=== PATIENT | male | born 1965 | race Caucasian/White ===

== ENCOUNTER 2025-06-23 14:19 | Inpatient (IN) ==
--- NOTE | 2025-06-23 14:24 | Emergency Department Note ---
Impression & Plan Septic shock, Hypokalemia, Chest pain, Cellulitis of right lower extremity, Hypomagnesemia, SOB (shortness of breath) ED Provider Note CHIEF COMPLAINT: Chest pain, syncope, right leg infection HISTORY OF PRESENTING ILLNESS: This 59-year-old male patient presents to the emergency department with a friend for evaluation of a right lower extremity infection, chest pain, and 2 syncopal episodes. The patient states that he bumped his right lower leg on a piece of limestone rock yesterday. The rock was not in any water. The patient already had a scab to the right lower extremity above the area where he hit his leg on a rock. The right lower extremity is now red, painful, and very swollen. He is also having chest pressure and SOB and had 2 syncopal episodes in the car on the way to the hospital per his friend. Feels like he has had fevers too, but did not check his temperature. No discharge from the wound in the right lower extremity. He has a history of Multiple Myeloma and is currently on chemo. He follows with Dr. Armstrong in [place] for oncology. He has a history of heart problems and renal failure as well. He is not on any blood thinners per patient. He denies any abdominal pain, nausea, or vomiting. He denies a history of diabetes. REVIEW OF SYSTEMS: See HPI for pertinent positives and pertinent negatives. ALLERGIES: Doxycycline MEDICATIONS: See below PAST MEDICAL HISTORY: Multiple myeloma, heart problems, renal failure PHYSICAL EXAM: VITALS: Vitals are noted on the nurse's note and reviewed by myself. GENERAL: The patient appears ill on exam with tachycardia and hypotension. The patient is obese. SKIN: The patient has significant erythema, edema, and warmth of the right lower extremity. There are 2 scabs to the lateral aspect of the right lower extremity centrally to the area of erythema. No pitting. No obvious cording felt. The left lower extremity without erythema or warmth, but minimal edema. Capillary refill <2 sec. EYES: PERRLA. EOMI. Conjunctivae without injection, sclerae without icterus. NOSE: Patent without discharge. MOUTH: Mucous membranes moist. Uvula midline. Airway patent. NECK: Supple without nuchal rigidity. HEART: Tachycardic without murmurs gallops or rubs. LUNGS: The patient appears mildly short of breath on exam, but lungs are clear to auscultation bilaterally without wheezes, rales or rhonchi. No retractions, but mild accessory muscle use. ABDOMEN: Positive bowel sounds x 4. Normal tympanic percussion. Soft, nontender to palpation. No masses or hepatosplenomegaly. Graham sign negative. No CVA tenderness. No guarding, rigidity, or rebound tenderness. No focal RLQ or LLQ tenderness. MUSCULOSKELETAL: See skin exam. The patient is tender to palpation over the right lower extremity in the area of erythema, edema, and warmth. No tenderness to palpation of the right knee, ankle, or foot. He is still able to move the right knee and foot. Normal sensation to light and sharp touch of the right lower extremity. Dorsalis pedis and posterior tibial pulse 2+ and equal in the bilateral lower extremities. NEURO: Patient was alert and oriented. No focal neurological deficits. DIFFERENTIAL DIAGNOSIS: Differential diagnosis includes angina, [place], pericarditis, myocarditis, aortic dissection, pleurisy, pneumothorax, PE, pneumonia, pneumomediastinum, esophagitis, esophageal spasm, GERD, perforated esophagus, perforated duodenal/gastric ulcer, pancreatitis, cholecystitis, costochondritis, musculoskeletal, bronchitis, URI, cellulitis, abscess, MRSA infection, DVT, necrotizing fasciitis, sepsis, dermatitis, drug eruption, allergic reaction, as well as other pathologies. ED COURSE AND MEDICAL DECISION MAKING: HISTORY FROM INDEPENDENT HISTORIAN: Additional history obtained from the patient's friend. MEDICATIONS GIVEN: A total of 2.5 L normal saline solution bolus. Tylenol 1000 mg IV. Zofran 4 mg IV. Morphine 4 mg IV. Dilaudid 0.25 mg IV. Magnesium 1 g IV. K rider 10 meq IV. Cefepime 2 g IV. Daptomycin 1.2 g IV. IV Levophed per protocol. MONITOR: Continuous teletypesetter monitor: Order was placed for continuous teletypesetter monitor. Patient was placed on the teletypesetter monitor and continuous pulse ox. Patient was noted to be in sinus tachycardia at an initial rate of 110 bpm per my interpretation. EKG: EKG was interpreted by myself as sinus tachycardia at 109 bpm with no acute ST or T wave changes. INTERPRETATION OF LABS: I interpreted the labs with full lab results as below in the lab section of this note. Laboratory results pertinent to the emergent complaint are discussed in the MDM section below. The patient was advised to follow up with their PCP and/or specialist(s) for further outpatient monitoring and management of any abnormal results. INTERPRETATION OF IMAGING: Imaging studies were interpreted by myself and read by radiology as per the imaging section of this note. The patient was advised to follow up with their PCP and/or specialist(s) for further outpatient management of any non-emergent abnormal findings. Chest x-ray negative for acute cardiopulmonary etiology. CTA of the chest with IV contrast shows no central pulmonary emboli. Evaluation of the remainder of the pulmonary arteries is significantly compromised by respiratory motion. No consolidation to suggest pneumonia. Moderate cardiomegaly. Hepatic steatosis. X-rays of the right tib- fib were negative for acute fracture, dislocation, foreign body, or obvious osteomyelitis. There is right lower leg soft tissue swelling. Venous Doppler of the right lower extremity shows no evidence for DVT. There is a possible Paulino's cyst that is 5.5 cm in size. Subcutaneous edema of the right lower extremity in the area of concern with no focal collection identified. CHRONIC MEDICAL/SOCIAL CONDITIONS AFFECTING CARE: Multiple myeloma on chemotherapy CONSULTATIONS: ED pharmacist. On-call hospitalist Dr. Hansen. Dr. Scott of the ICU. CRITICAL CARE: I have personally spent 35 minutes of critical care time in the direct management of this patient. This includes bedside care, interpretation of diagnostic studies, and testing, discussion with consultants, patient, and family members, and other required patient management activities. This 35 minutes is in excess of all separately billable procedures. MDM SUMMARY: I examined the patient. The patient cut his right lower extremity on a rock yesterday below an area of a previous injury that was already scabbed over. He now has redness, swelling, and warmth to the right lower extremity as well as chest pain and shortness of breath that developed today. The patient also passed out twice on the way to the ER per his friend. On arrival, the patient was tachycardic and hypotensive and there was concern for sepsis from an infection to the right lower extremity. An IV lock was placed and labs were drawn. There was concern for fluid overload so the patient was initially only given 1 L normal saline solution bolus. Blood cultures were drawn and the patient was given IV cefepime after discussion with the ED pharmacist. The patient was also then given daptomycin 1.2 g IV for MRSA coverage. The patient was initially given Tylenol 1000 mg IV followed by morphine 4 mg IV and Zofran 4 mg IV for pain and then Dilaudid 0.25 mg IV for continued significant pain in the right lower extremity. The patient's lactate came back elevated at 4.2 and the patient was given additional 500 mL. However, due to concerns for fluid overload the patient was not initially given the additional 1 L to get to his 2.5 L sepsis bolus based on his ideal body weight. The patient did continue to have episodes of hypotension in addition to normotensive blood pressure readings so he was given the additional 1 L for total 2.5 L of normal saline solution based on his ideal body weight sepsis fluid calculation. The patient's magnesium and calcium were low and he was given magnesium 1 g IV as well as a 10 meq K rider IV. White blood cell count low at 3.09. Hemoglobin low at 12.2. Platelet count normal at 171. Coags were normal. Sodium low at 133, potassium low 2.7, chloride low at 96, creatinine elevated at 1.52, glucose elevated at 189, calcium low at 8.1, total bilirubin elevated at 1.1, AST elevated at 53, and ALT elevated at 74. High-sensitivity troponin elevated at 39.7 with repeat level of 38.7. Magnesium low at 1.5. Lactate elevated at 4.2 with repeat level 3.8. Procalcitonin elevated at 0.96. Lipase normal. Chest x-ray negative for acute cardiopulmonary etiology. CTA of the chest with IV contrast shows no central pulmonary emboli. Evaluation of the remainder of the pulmonary arteries is significantly compromised by respiratory motion. No consolidation to suggest pneumonia. Moderate cardiomegaly. Hepatic steatosis. X-rays of the right tib-fib were negative for acute fracture, dislocation, foreign body, or obvious osteomyelitis. There is right lower leg soft tissue swelling. Venous Doppler of the right lower extremity shows no evidence for DVT. There is a possible Paulino's cyst that is 5.5 cm in size. Subcutaneous edema of the right lower extremity in the area of concern with no focal collection identified. I had meaningful discussions about this patient with Dr. Pascual throughout his ER stay based on the patient's results and condition. The patient's blood pressures fluctuated between hypotension and low normotensive blood pressures while in the emergency department. The patient also had continued tachycardia of varying degrees. He had been holding around the 90s over 60s for most of the time that he was hypotensive even with pain medication. However, the patient did become more hypotensive and his blood pressure dropped to 73/48 and his oxygen dropped to the low 90s and high 80s. Oxygen by nasal cannula was placed initially, but then changed to an oxymask. Myself and Dr. Pascual presented to bedside and a second line was placed and the patient was started on Levophed which did initially improve his pressures. I spoke with Dr. Hansen who is the on-call hospitalist as well as Dr. Scott of the ICU about this patient in regards to admission. They presented to bedside and performed additional interventions. Please refer to their dictations for further details. The patient was admitted to the ICU in critical condition. DIAGNOSIS: Sepsis Cellulitis of the right lower extremity Chest pain Shortness of breath Hypokalemia Hypomagnesemia Attending Attestation: I Dami Pascual MD independently saw and evaluated this patient and agree with history and physical is otherwise documented by the advanced practitioner. See their note for full details. Patient appears to be septic from lower leg cellulitis. Does not seem consistent with necrotizing fasciitis. Some electrolyte abnormalities were replaced and received IV fluid here. Persistent hypotension resulted in starting vasopressors. Evaluated by the hospitalist and to the ICU for further care. Covered with broad-spectrum antibiotics and discussion with pharmacy. Past Med/Surg History Problem List (Updated 06/23/25 @ 22:38 by Luba Pierre PA-C) SOB (shortness of breath) (Acute) Hypomagnesemia (Acute) Cellulitis of right lower extremity (Acute) Chest pain (Acute) Acute respiratory failure with hypoxia Witnessed episode of apnea Hypokalemia (Acute) Syncope Transaminitis JOSE (acute kidney injury) Cellulitis Septic shock (Acute) Encephalopathy Medical History (Updated 06/23/25 @ 22:38 by Luba Pierre PA-C) Hypothyroidism Multiple myeloma Social History Smoking Status: Current every day smoker Tobacco Type: Cigarettes Cigarettes Per Day: 10; Second Hand Exposure: No; Do You Dip or Chew Tobacco: No; Hx Alcohol Use: No Hx Substance Use: No Preferred Language: [place]an Communication Ability: Effective Junior Programmer Required: No Beliefs That Will Affect Care: None Current Living Situation: Alone Feels Safe at Home: Yes Assistive Devices: Glasses Allergies Allergies Allergy/AdvReac Type Severity Reaction Status Date / Time doxycycline Allergy Verified 06/23/25 14:32 Home Meds Home Medications Medication Instructions Recorded Confirmed allopurinol 100 mg tablet 100 mg PO DAILY 06/23/25 06/23/25 bumetanide 2 mg tablet 2 mg PO BID 06/23/25 06/23/25 carvedilol 12.5 mg tablet (Coreg) 12.5 mg PO BID 06/23/25 06/23/25 dexamethasone 4 mg tablet 40 mg PO WK 06/23/25 06/23/25 levothyroxine 50 mcg tablet 50 mcg PO DAILY 06/23/25 06/23/25 Results & Data (ED) Vital Signs Vital Signs - 24 hr 06/23/25 14:25 06/23/25 14:29 06/23/25 14:29 Temperature 37.3 C Temperature Source Oral Pulse Rate 110 H 112 H Pulse Rate [Apical] Pulse Rate from SpO2 Sensor Pulse Rhythm [Apical] Respiratory Rate 20 Respiratory Effort / Characteristics Non-Labored Spontaneous Respiratory Depth Normal Blood Pressure 91/68 L 91/68 L Blood Pressure [Left Arm] Blood Pressure Mean 75 78 Blood Pressure Mean [Left Arm] Pulse Oximetry 96 Oxygen Delivery Method Room Air Oxygen Flow Rate Sepsis Recent Fever Within 48 Hours No Sepsis New/Unexplained Change in Mental Status No Sepsis Action Taken by Nursing Physician Notified 06/23/25 14:30 06/23/25 14:30 06/23/25 14:35 Temperature Temperature Source Pulse Rate Pulse Rate [Apical] Pulse Rate from SpO2 Sensor Pulse Rhythm [Apical] Respiratory Rate Respiratory Effort / Characteristics Short of Breath SOB on Exertion Respiratory Depth Blood Pressure 125/80 Blood Pressure [Left Arm] Blood Pressure Mean 96 Blood Pressure Mean [Left Arm] Pulse Oximetry 94 Oxygen Delivery Method Room Air Room Air Oxygen Flow Rate Sepsis Recent Fever Within 48 Hours Sepsis New/Unexplained Change in Mental Status Sepsis Action Taken by Nursing 06/23/25 14:39 06/23/25 14:42 06/23/25 14:45 Temperature Temperature Source Pulse Rate 109 H Pulse Rate [Apical] Pulse Rate from SpO2 Sensor 112 H 113 H Pulse Rhythm [Apical] Respiratory Rate 20 Respiratory Effort / Characteristics Respiratory Depth Blood Pressure Blood Pressure [Left Arm] Blood Pressure Mean Blood Pressure Mean [Left Arm] Pulse Oximetry 95 96 95 Oxygen Delivery Method Room Air Oxygen Flow Rate Sepsis Recent Fever Within 48 Hours Sepsis New/Unexplained Change in Mental Status Sepsis Action Taken by Nursing 06/23/25 14:57 06/23/25 15:00 06/23/25 15:09 Temperature Temperature Source Pulse Rate Pulse Rate [Apical] Pulse Rate from SpO2 Sensor 105 H 101 H 103 H Pulse Rhythm [Apical] Respiratory Rate Respiratory Effort / Characteristics Respiratory Depth Blood Pressure Blood Pressure [Left Arm] Blood Pressure Mean Blood Pressure Mean [Left Arm] Pulse Oximetry 94 94 95 Oxygen Delivery Method Oxygen Flow Rate Sepsis Recent Fever Within 48 Hours Sepsis New/Unexplained Change in Mental Status Sepsis Action Taken by Nursing 06/23/25 15:19 06/23/25 16:08 06/23/25 16:11 Temperature 37.5 C Temperature Source Oral Pulse Rate 101 H Pulse Rate [Apical] 98 H Pulse Rate from SpO2 Sensor 101 H Pulse Rhythm [Apical] Regular Respiratory Rate 20 20 Respiratory Effort / Characteristics Respiratory Depth Blood Pressure 83/55 L 91/55 L Blood Pressure [Left Arm] 91/55 L Blood Pressure Mean 59 66 Blood Pressure Mean [Left Arm] 67 Pulse Oximetry 94 94 Oxygen Delivery Method Room Air Oxygen Flow Rate Sepsis Recent Fever Within 48 Hours Sepsis New/Unexplained Change in Mental Status Sepsis Action Taken by Nursing 06/23/25 16:11 06/23/25 16:12 06/23/25 16:12 Temperature 37.5 C Temperature Source Oral Pulse Rate 95 H Pulse Rate [Apical] Pulse Rate from SpO2 Sensor 95 H Pulse Rhythm [Apical] Respiratory Rate 15 Respiratory Effort / Characteristics Respiratory Depth Blood Pressure 91/55 L Blood Pressure [Left Arm] Blood Pressure Mean 66 Blood Pressure Mean [Left Arm] Pulse Oximetry 94 Oxygen Delivery Method Oxygen Flow Rate Sepsis Recent Fever Within 48 Hours Sepsis New/Unexplained Change in Mental Status Sepsis Action Taken by Nursing 06/23/25 16:21 06/23/25 16:31 06/23/25 16:33 Temperature Temperature Source Pulse Rate 102 H 99 H Pulse Rate [Apical] Pulse Rate from SpO2 Sensor 102 H 97 H Pulse Rhythm [Apical] Respiratory Rate 28 H 14 Respiratory Effort / Characteristics Respiratory Depth Blood Pressure 90/53 L 73/48 L Blood Pressure [Left Arm] Blood Pressure Mean 65 56 Blood Pressure Mean [Left Arm] Pulse Oximetry 88 L 90 Oxygen Delivery Method Oxygen Flow Rate Sepsis Recent Fever Within 48 Hours Sepsis New/Unexplained Change in Mental Status Sepsis Action Taken by Nursing 06/23/25 16:36 06/23/25 16:42 06/23/25 16:45 Temperature Temperature Source Pulse Rate 100 H Pulse Rate [Apical] Pulse Rate from SpO2 Sensor 100 H Pulse Rhythm [Apical] Respiratory Rate 35 H Respiratory Effort / Characteristics Respiratory Depth Blood Pressure 99/59 L 111/70 Blood Pressure [Left Arm] Blood Pressure Mean 63 85 Blood Pressure Mean [Left Arm] Pulse Oximetry 93 Oxygen Delivery Method Oxygen Flow Rate Sepsis Recent Fever Within 48 Hours Sepsis New/Unexplained Change in Mental Status Sepsis Action Taken by Nursing 06/23/25 16:45 06/23/25 16:50 06/23/25 16:56 Temperature Temperature Source Pulse Rate 100 H Pulse Rate [Apical] Pulse Rate from SpO2 Sensor 98 H Pulse Rhythm [Apical] Respiratory Rate 35 H Respiratory Effort / Characteristics Respiratory Depth Blood Pressure 98/53 L 125/71 117/67 Blood Pressure [Left Arm] Blood Pressure Mean 76 80 84 Blood Pressure Mean [Left Arm] Pulse Oximetry 93 Oxygen Delivery Method Oxygen Flow Rate Sepsis Recent Fever Within 48 Hours Sepsis New/Unexplained Change in Mental Status Sepsis Action Taken by Nursing 06/23/25 16:56 06/23/25 17:00 06/23/25 17:01 Temperature Temperature Source Pulse Rate 111 H Pulse Rate [Apical] Pulse Rate from SpO2 Sensor Pulse Rhythm [Apical] Respiratory Rate 33 H 22 Respiratory Effort / Characteristics Respiratory Depth Blood Pressure 117/67 93/60 L Blood Pressure [Left Arm] Blood Pressure Mean 84 71 Blood Pressure Mean [Left Arm] Pulse Oximetry 91 Oxygen Delivery Method Aerosol Mask Oxygen Flow Rate 5 Sepsis Recent Fever Within 48 Hours Sepsis New/Unexplained Change in Mental Status Sepsis Action Taken by Nursing 06/23/25 17:05 Temperature Temperature Source Pulse Rate Pulse Rate [Apical] Pulse Rate from SpO2 Sensor Pulse Rhythm [Apical] Respiratory Rate Respiratory Effort / Characteristics Respiratory Depth Blood Pressure 100/70 Blood Pressure [Left Arm] Blood Pressure Mean 81 Blood Pressure Mean [Left Arm] Pulse Oximetry Oxygen Delivery Method Oxygen Flow Rate Sepsis Recent Fever Within 48 Hours Sepsis New/Unexplained Change in Mental Status Sepsis Action Taken by Nursing Laboratory Data 06/23/25 14:36 06/23/25 17:05 Lab Results 06/23/25 06/23/25 06/23/25 Range/Units 14:36 16:40 17:05 WBC 3.09 L (4.8-10.8) K/ul RBC 4.02 L (4.70-6.10) M/uL Hgb 12.2 L (14.0-18.0) g/dl Hct 35.6 L (42.0-52.0) % MCV 88.6 (80.0-100.0) fL MCH 30.3 (25.0-34.0) pg MCHC 34.3 (32.0-36.0) g/dL RDW Std Deviation 54.3 H (36.4-46.3) fL RDW Coeff of Shlomo 17.0 H (11.5-14.5) % Plt Count 171 (130-400) K/uL MPV 10.3 (9.4-12.4) fL Neutrophils % (Manual) 75 % Lymphocytes % (Manual) 16 % Monocytes % (Manual) 3 % Eosinophils % (Manual) 1 % Metamyelocytes % (Man) 4 % Myelocytes % (Man) 1 % Neutrophils # (Manual) 2.32 (1.40-6.50) K/uL Total Absolute Neuts 2.32 (1.4-6.5) K/uL Lymphocytes # (Manual) 0.49 L (1.2-3.4) K/uL Total Abs Lymphocytes 0.49 L (1.2-3.4) K/uL Monocytes # (Manual) 0.09 L (0.11-0.59) K/uL Eosinophils # (Manual) 0.03 (0-0.50) K/uL Metamyelocytes # (Man) 0.12 H (0-0) K/uL Myelocytes # (Manual) 0.03 H (0-0) K/uL RBC Morphology Unremarkable PT 10.5 (9.0-12.0) Seconds INR 1.0 (0.9-1.1) APTT 24 (21-31) Seconds PTT Ratio 0.9 Sodium 133 L 133 L (136-145) mmol/L Potassium 2.7 L 2.8 L (3.5-5.1) mmol/L Chloride 96 L 98 (98-107) mmol/L Carbon Dioxide 26 23 (21-32) mmol/L Anion Gap 11 12 H (3-11) BUN 22 22 (6-23) mg/dl Creatinine 1.52 H 1.54 H (0.6-1.4) mg/dl Est Cr Clr Drug Dosing 88.4 87.3 ml/min eGFR 53.11 52.29 BUN/Creatinine Ratio 14.5 14.3 (10-20) Glucose 189 H 186 H (70-99(Fasting)) mg/dl Lactate 4.2 H* 3.8 H* (0.4-2.0) mmol/L Calcium 8.1 L 7.6 L (8.6-10.3) mg/dl Magnesium 1.5 L (1.7-2.4) mg/dl Total Bilirubin 1.0 1.1 H (0.2-1.0) mg/dl AST 55 H 53 H (13-39) U/L ALT 68 H 74 H (7-52) U/L Alkaline Phosphatase 105 H 104 (34-104) U/L Total Creatine Kinase 92 (30-223) U/L Troponin I High Sens 39.7 H 38.7 H (0-20) pg/ml Total Protein 5.6 L 5.6 L (6.0-8.3) gm/dl Albumin 3.6 3.4 (3.4-5.0) gm/dl Globulin 2.0 L 2.2 L (2.5-4.0) gm/dl Albumin/Globulin Ratio 1.8 1.5 (0.9-2) Lipase 19 (11-82) U/L Procalcitonin 0.96 H (0-0.5) ng/ml TSH 1.525 (0.300-4.500) uIu/ml Random Cortisol 15.61 mcg/dl Nasal Screen MRSA (PCR) Negative (Negative) Administered Medications Norepinephrine Bitartrate (Levophed/D5w) 4 mg in 250 mls @ 83.704 mls/hr IV .Q3H [facility]; Protocol Stop: 07/23/25 16:44 Last Titration: 06/23/25 21:37 Dose: 0.09 mcg/kg/min, 57.9 mls/hr Documented By: RUSTY Co-signed By: TLM Titration: 06/23/25 21:04 Dose: 0.11 mcg/kg/min, 70.8 mls/hr Documented By: AMS Co-signed By: SMW Admin: 06/23/25 20:11 Dose: 0.13 mcg/kg/min, 83.7 mls/hr Documented By: AMS Co-signed By: ESG Titration: 06/23/25 20:07 Dose: Infused Documented By: RUSTY Co-signed By: ESG Titration: 06/23/25 19:17 Dose: 0.13 mcg/kg/min, 83.7 mls/hr Documented By: RUSTY Co-signed By: CB Titration: 06/23/25 17:48 Dose: 0.13 mcg/kg/min, 83.7 mls/hr Documented By: KIM Co-signed By: ELIZABETH Titration: 06/23/25 17:26 Dose: 0.11 mcg/kg/min, 70.8 mls/hr Documented By: ELIZABETH Co-signed By: MSRicci Titration: 06/23/25 17:19 Dose: 0.09 mcg/kg/min, 57.9 mls/hr Documented By: ELIZABETH Co-signed By: NUVIA Titration: 06/23/25 17:16 Dose: 0.07 mcg/kg/min, 45.1 mls/hr Documented By: ELIZABETH Co-signed By: NUVIA Admin: 06/23/25 16:35 Dose: 0.05 mcg/kg/min, 32.2 mls/hr Documented By: ELIZABETH Co-signed By: PORTILLO Ondansetron HCl (Ondansetron Inj 2 Mg/Ml 2 Ml Vial) 4 mg IV Q6H PRN PRN Reason: Nausea And Vomiting Stop: 07/23/25 19:30 Last Admin: 06/23/25 19:46 Dose: 4 mg Documented By: RUSTY Discontinued Medications Hydrocortisone Sodium Succinate (Hydrocortisone Sod Succinate 100 Mg/2 Ml Vial) 100 mg IV NOW STA Stop: 06/23/25 17:02 Last Admin: 06/23/25 17:04 Dose: 100 mg Documented By: ELIZABETH Hydromorphone HCl (Hydromorphone Inj 0.5 Mg/0.5 Ml Syr) 0.25 mg IV NOW STA Stop: 06/23/25 16:16 Last Admin: 06/23/25 16:26 Dose: 0.25 mg Documented By: ELIZABETH Sodium Chloride (Nss) 1,000 mls @ 999 mls/hr IV .Q1H1M ONE Stop: 06/23/25 15:32 Last Infusion: 06/23/25 16:44 Dose: Infused Documented By: Admin: 06/23/25 14:43 Dose: 999 mls/hr Documented By: ELIZABETH Cefepime HCl (Maxipime 2000mg) 2,000 mg in 20 mls @ 5 mls/min IV NOW STA; Protocol Stop: 06/23/25 14:35 Last Admin: 06/23/25 15:05 Dose: 5 mls/min Documented By: ELIZABETH Acetaminophen (Ofirmev) 1,000 mg in 100 mls @ 400 mls/hr IV NOW STA Stop: 06/23/25 14:50 Last Infusion: 06/23/25 15:45 Dose: Infused Documented By: Admin: 06/23/25 14:42 Dose: 400 mls/hr Documented By: ELIZABETH Sodium Chloride (Nss) 500 mls @ 999 mls/hr IV .Q31M ONE Stop: 06/23/25 15:18 Last Infusion: 06/23/25 16:44 Dose: Infused Documented By: Admin: 06/23/25 14:56 Dose: 999 mls/hr Documented By: ELIZABETH Magnesium Sulfate/Dextrose (Magnesium Sulfate / D5w) 1 gm in 100 mls @ 100 mls/hr IV NOW STA Stop: 06/23/25 16:35 Last Infusion: 06/23/25 17:43 Dose: Infused Documented By: Admin: 06/23/25 16:07 Dose: 100 mls/hr Documented By: ELIZABETH Potassium Chloride (K Jarret / Wtr) 10 meq in 100 mls @ 100 mls/hr IV ONE ONE Stop: 06/23/25 17:09 Last Infusion: 06/23/25 18:00 Dose: Infused Documented By: Admin: 06/23/25 16:27 Dose: 100 mls/hr Documented By: ELIZABETH Sodium Chloride (Nss) 1,000 mls @ 999 mls/hr IV .Q1H1M ONE Stop: 06/23/25 17:24 Last Infusion: 06/23/25 17:43 Dose: Infused Documented By: Admin: 06/23/25 16:27 Dose: 999 mls/hr Documented By: ELIZABETH Daptomycin 850 mg/ Syringe 17 mls @ 8.5 mls/min IV NOW ONE; Protocol Stop: 06/23/25 16:46 Last Admin: 06/23/25 17:04 Dose: 8.5 mls/min Documented By: ELIZABETH Albumin Human (Albumin 5%) 250 mls @ 500 mls/hr IV ONE ONE Stop: 06/23/25 17:24 Last Infusion: 06/23/25 19:32 Dose: Infused Documented By: Admin: 06/23/25 17:33 Dose: 500 mls/hr Documented By: ELIZABETH Potassium Chloride (K Jarret / Wtr) 10 meq in 100 mls @ 100 mls/hr IV Q1H DAMASO Stop: 06/23/25 21:59 Last Admin: 06/23/25 22:16 Dose: 100 mls/hr Documented By: Infusion: 06/23/25 22:16 Dose: Infused Documented By: Admin: 06/23/25 21:03 Dose: 100 mls/hr Documented By: Infusion: 06/23/25 21:03 Dose: Infused Documented By: Admin: 06/23/25 20:02 Dose: 100 mls/hr Documented By: Infusion: 06/23/25 20:02 Dose: Infused Documented By: Admin: 06/23/25 18:07 Dose: 100 mls/hr Documented By: KIM Piperacillin Sod/Tazobactam Sod (Zosyn) 4.5 gm in 100 mls @ 200 mls/hr IV NOW STA; Protocol Stop: 06/23/25 17:51 Last Infusion: 06/23/25 20:13 Dose: Infused Documented By: Admin: 06/23/25 19:43 Dose: 200 mls/hr Documented By: RUSTY Ioversol (Optiray 320 125ml) 115 ml IV ONCE ONE Stop: 06/23/25 15:31 Last Admin: 06/23/25 15:31 Dose: 115 ml Documented By: DARON Ioversol (Optiray 320 125ml) 115 ml IV ONCE ONE Stop: 06/23/25 18:19 Last Admin: 06/23/25 18:19 Dose: 115 ml Documented By: DARON Nuñez (Stat Iv Infusion Titration Per Protocol) 1 each N/A NOW STA Stop: 06/23/25 16:33 Last Admin: 06/23/25 16:58 Dose: Not Given Documented By: ELIZABETH Nuñez (Icu Protocol For Hyperglycemia) 1 each N/A ACHS DAMASO Stop: 06/25/25 20:59 Last Admin: 06/23/25 20:22 Dose: 1 each Documented By: RUSTY Morphine Sulfate (Morphine Sulfate 4 Mg/Ml 1 Ml Carp\Vial) 4 mg IV NOW STA Stop: 06/23/25 15:09 Last Admin: 06/23/25 15:18 Dose: 4 mg Documented By: ELIZABETH Norepinephrine Bitartrate (Norepinephrine/D5w 4 Mg/250 Ml) Confirm Administered Dose 4 mg IV .STK-MED ONE Stop: 06/23/25 16:35 Last Admin: 06/23/25 16:38 Dose: Not Given Documented By: ELIZABETH Ondansetron HCl (Ondansetron Inj 2 Mg/Ml 2 Ml Vial) 4 mg IV NOW STA Stop: 06/23/25 14:51 Last Admin: 06/23/25 14:56 Dose: 4 mg Documented By: ELIZABETH Imaging Data Radiologist's Impression: Chest X-Ray 06/23/25 14:32 XR chest 1V portable HISTORY: 59 years-old Male Chest pain, nonspecific COMPARISON: None TECHNIQUE: AP view of the chest FINDINGS: Cardiac silhouette is mildly enlarged. Mild right hemidiaphragmatic elevation. No pneumothorax, pleural effusion, airspace consolidation or pulmonary edema. Spondylitic spurring of the spine. Bones appear grossly intact. IMPRESSION: No acute process. ACT 112: Negative or not required by law. The above report was generated using voice recognition software. It may contain grammatical, syntax or spelling errors. Electronically signed by: Bryce Turner M.D. 06/23/2025 3:03 PM Chest CTA 06/23/25 14:33 CT ANGIOGRAM OF THE CHEST CLINICAL HISTORY: Chest pain. Shortness of breath. Evaluate for pulmonary embolus. COMPARISON STUDY: Chest radiograph performed earlier today. TECHNIQUE: Following the IV administration of 115 cc of Optiray 320, CT angiogram of the chest was performed from the upper abdomen to the thoracic inlet utilizing the pulmonary embolus protocol. Images are reviewed in the axial, sagittal, and coronal planes. 3-D MIPS images are created and assessed. IV contrast was administered without complication. A dose lowering technique was utilized adhering to the principles of ALARA. CT DOSE: 1001.95 mGy.cm FINDINGS: This exam is significantly compromised by respiratory motion. No central pulmonary emboli are identified. The remainder of the pulmonary arteries are suboptimally assessed. The heart is moderately enlarged. There is no pericardial effusion. There is no thoracic aortic dissection. No enlarged axillary, mediastinal or hilar lymph nodes are present. There is no pneumothorax or pleural effusion. Mild subpleural groundglass opacities favor atelectasis. There is no consolidation to suggest pneumonia. No suspicious pulmonary nodules are identified although the lungs are suboptimally assessed due to respiratory motion. Hepatic steatosis is incidentally noted. Visualized portions of the upper abdomen are otherwise unremarkable. IMPRESSION: 1. No central pulmonary emboli. Evaluation of the remainder of the pulmonary arteries is significantly compromised by respiratory motion. 2. No consolidation to suggest pneumonia. 3. Moderate cardiomegaly. 4. Hepatic steatosis. ACT 112: Negative or not required by law. Electronically signed by: Mike Mckeon M.D. 06/23/2025 3:49 PM Tibia/Fibula X-Ray 06/23/25 14:36 XR tibia fibula RT 2V CLINICAL HISTORY: Right leg injury - eval trauma/FB/infection COMPARISON: None FINDINGS: There are no fractures within the right tibia or fibula. No areas of bony erosion are identified. Severe medial compartment joint space narrowing is noted with osteophytosis. Multiple soft tissue calcifications within the right lower leg are likely vascular in etiology. There is right lower leg soft tissue swelling. No radiopaque foreign bodies are present. IMPRESSION: 1. No fractures or evidence for osteomyelitis within the right tibia or fibula. 2. Right lower leg soft tissue swelling. 3. No radiopaque foreign bodies. ACT 112: Negative or not required by law. Electronically signed by: Mike Mckeon M.D. 06/23/2025 3:03 PM Venous Doppler Study 06/23/25 14:36 DVT ULTRASOUND OF RIGHT LOWER EXTREMITY INDICATION: Pain TECHNIQUE: Grayscale and color Doppler evaluation of the RIGHT femoral-popliteal venous system was performed. A duplex Doppler study was performed, consisting of integrated two-dimensional (2D) real-time imaging: Color flow Doppler and Doppler spectral analysis. COMPARISON: None FINDINGS: RIGHT common femoral, femoral and popliteal veins: Normal compressibility, color flow, respiratory variation. No intraluminal echogenic material. There is a popliteal fossa Paulino's cyst measuring 3.6 x 5.5 x 2.0 cm. Subcutaneous edema with no focal collection identified IMPRESSION: No evidence of deep venous thrombus in the right femoral-popliteal venous system. Popliteal fossa Paulino's cyst measuring 5.5 cm. Subcutaneous edema with no focal collection identified Electronically signed by Bon Arrington 06-23-2025 4:16 PM Discharge Plan Visit Data Chief Complaint: Chest Pain Stated Complaint: CHEST PAIN/SOB/R LEG INFECTIION ED Provider: Dami Pascual ED Midlevel Provider: Luba Pierre Discharge Problem: Septic shock, Hypokalemia, Chest pain, Cellulitis of right lower extremity, Hypomagnesemia, SOB (shortness of breath) Patient Disposition: Admitted As Inpatient Condition: Critical Discharge Instructions Interventions: ED Discharge Assessment Last Done: 06/23/25 18:05 Discharge Problem: Chest pain Qualifiers: Chest pain type: unspecified Qualified Code(s): R07.9 - Chest pain, unspecified
[2025-06-23] MEDS: ACETAMINOPHEN 1,000 MG/100 ML VIAL IV STA (14:42)
[2025-06-23] MEDS: SODIUM CHLORIDE 0.9% 1,000 ML IV ONE ×2 (14:43→16:27)
[2025-06-23 14:48] LABS: Hematocrit (blood only) 35.6 % (42.0-52.0); Hemoglobin 12.2 g/dl (14.0-18.0); Mean Corpuscular Hemoglobin 30.3 pg (25.0-34.0); Mean Corpuscular Volume 88.6 fL (80.0-100.0); Platelet Count 171 K/uL (130-400); RDW Standard Deviation 54.3 fL (36.4-46.3); Red Blood Count 4.02 M/uL (4.70-6.10); White Blood Count 3.09 K/ul (4.8-10.8)
[2025-06-23] MEDS: ONDANSETRON INJ 2 MG/ML 2 ML VIAL IV STA (14:56)
[2025-06-23] MEDS: SODIUM CHLORIDE 0.9% 500 ML IV ONE (14:56)
--- NOTE | 2025-06-23 15:04 | XRay Report ---
XR chest 1V portable HISTORY: 59 years-old Male Chest pain, nonspecific COMPARISON: None TECHNIQUE: AP view of the chest FINDINGS: Cardiac silhouette is mildly enlarged. Mild right hemidiaphragmatic elevation. No pneumothorax, pleur al effusion, airspace consolidation or pulmonary edema. Spondylitic spurring of the spine. Bones appe ar grossly intact. IMPRESSION: No acute process. ACT 112: Negative or not required by law. The above report was generated using voice recognition software. It may contain grammatical, syntax o r spelling errors. Electronically signed by: Bryce Turner M.D. 06/23/2025 3:03 PM
--- NOTE | 2025-06-23 15:04 | XRay Report ---
XR tibia fibula RT 2V CLINICAL HISTORY: Right leg injury - eval trauma/FB/infection COMPARISON: None FINDINGS: There are no fractures within the right tibia or fibula. No areas of bony erosion are iden tified. Severe medial compartment joint space narrowing is noted with osteophytosis. Multiple soft ti ssue calcifications within the right lower leg are likely vascular in etiology. There is right lower leg soft tissue swelling. No radiopaque foreign bodies are present. IMPRESSION: 1. No fractures or evidence for osteomyelitis within the right tibia or fibula. 2. Right lower leg soft tissue swelling. 3. No radiopaque foreign bodies. ACT 112: Negative or not required by law. Electronically signed by: Mike Mckeon M.D. 06/23/2025 3:03 PM
[2025-06-23] MEDS: CEFEPIME 2000MG 2,000 MG/20 ML SYR IV STA (15:05)
[2025-06-23 15:06] LABS: Alanine Aminotransferase 68.0 U/L (7-52); Albumin Globulin Ratio 1.8 (0.9-2); Alkaline Phosphatase 105.0 U/L (34-104); Anion Gap 11.0 (3-11); Bilirubin,Total 1.0 mg/dl (0.2-1.0); Blood Urea Nitrogen 22.0 mg/dl (6-23); Calcium 8.1 mg/dl (8.6-10.3); Carbon Dioxide 26.0 mmol/L (21-32); Chloride 96.0 mmol/L (98-107); Creatinine Clr Calc Pharmacy 88.4 ml/min; Globulin 2.0 gm/dl (2.5-4.0); Glucose 189.0 mg/dl (70-99(Fasting)); Lipase 19.0 U/L (11-82); Magnesium 1.5 mg/dl (1.7-2.4); Potassium 2.7 mmol/L (3.5-5.1); Sodium 133.0 mmol/L (136-145); Total Protein 5.6 gm/dl (6.0-8.3)
[2025-06-23] MEDS: MoRPHine SULFATE 4 MG/ML 1 ML CARP\\VIAL IV STA (15:18)
[2025-06-23 15:25] LABS: INR 1.0 (0.9-1.1); Partial Thromboplastin Time 24 Seconds (21-31); Prothrombin Time 10.5 Seconds (9.0-12.0)
[2025-06-23] MEDS: OPTIRAY 320 125ml IV ONE ×2 (15:31→18:19)
--- NOTE | 2025-06-23 15:51 | CT Scan Report ---
CT ANGIOGRAM OF THE CHEST CLINICAL HISTORY: Chest pain. Shortness of breath. Evaluate for pulmonary embolus. COMPARISON STUDY: Chest radiograph performed earlier today. TECHNIQUE: Following the IV administration of 115 cc of Optiray 320, CT angiogram of the chest was pe rformed from the upper abdomen to the thoracic inlet utilizing the pulmonary embolus protocol. Images are reviewed in the axial, sagittal, and coronal planes. 3-D MIPS images are created and assessed. I V contrast was administered without complication. A dose lowering technique was utilized adhering to the principles of ALARA. CT DOSE: 1001.95 mGy.cm FINDINGS: This exam is significantly compromised by respiratory motion. No central pulmonary emboli a re identified. The remainder of the pulmonary arteries are suboptimally assessed. The heart is modera tely enlarged. There is no pericardial effusion. There is no thoracic aortic dissection. No enlarged axillary, mediastinal or hilar lymph nodes are present. There is no pneumothorax or pleural effusion. Mild subpleural groundglass opacities favor atelectasis. There is no consolidation to suggest pneumo miriam. No suspicious pulmonary nodules are identified although the lungs are suboptimally assessed due to respiratory motion. Hepatic steatosis is incidentally noted. Visualized portions of the upper abdo men are otherwise unremarkable. IMPRESSION: 1. No central pulmonary emboli. Evaluation of the remainder of the pulmonary arteries is significantl y compromised by respiratory motion. 2. No consolidation to suggest pneumonia. 3. Moderate cardiomegaly. 4. Hepatic steatosis. ACT 112: Negative or not required by law. Electronically signed by: Mike Mckeon M.D. 06/23/2025 3:49 PM
[2025-06-23] MEDS: MAGNESIUM SULFATE / D5W 1 GM/100 ML BAG IV STA (16:07)
--- NOTE | 2025-06-23 16:16 | Ultrasound Report ---
DVT ULTRASOUND OF RIGHT LOWER EXTREMITY INDICATION: Pain TECHNIQUE: Grayscale and color Doppler evaluation of the RIGHT femoral-popliteal venous system was performed. A duplex Doppler study was performed, consisting of integrated two-dimensional (2D) real-time imaging: Color flow Doppler and Doppler spectral analysis. COMPARISON: None FINDINGS: RIGHT common femoral, femoral and popliteal veins: Normal compressibility, color flow, respiratory variation. No intraluminal echogenic material. There is a popliteal fossa Paulino's cyst measuring 3.6 x 5.5 x 2.0 cm. Subcutaneous edema with no focal collection identified IMPRESSION: No evidence of deep venous thrombus in the right femoral-popliteal venous system. Popliteal fossa Paulino's cyst measuring 5.5 cm. Subcutaneous edema with no focal collection identified Electronically signed by Bon Arrington 06-23-2025 4:16 PM
[2025-06-23] MEDS ORDERED: DAPTOmycin 1,200 MG in SYRINGE 0 ML IV ONE (16:21)
[2025-06-23 16:23] LABS: ALC (manual) 0.49 K/uL (1.2-3.4); ANC (manual) 2.32 K/uL (1.4-6.5); RBC Morphology Unremarkable
[2025-06-23] MEDS: HYDROmorphone INJ 0.5 MG/0.5 ML SYR IV STA (16:26)
[2025-06-23] MEDS: POTASSIUM CHLORIDE / WTR 10 MEQ/100 ML PLCT IV ONE (16:27)
[2025-06-23] MEDS: NOREPINEPHRINE/D5W 4 MG/250 ML PLCT IV SCH (16:35)
[2025-06-23] MEDS: NOREPINEPHRINE/D5W 4 MG/250 ML IV ONE (16:38)
--- NOTE | 2025-06-23 16:57 | History & Physical Report ---
Date of Service June 23, 2025 Assessment & Plan (1) Multiple myeloma: (2) Transaminitis: (3) Septic shock: (4) Cellulitis: (5) JOSE (acute kidney injury): (6) Encephalopathy: (7) Syncope: (8) Hypokalemia: (9) Witnessed episode of apnea: (10) Acute respiratory failure with hypoxia: (11) Hypothyroidism: Plan 59 year old male with multiple myeloma on Revlimid/dexamethasone presents to the ER with right lower extremity cellulitis and #Septic shock Suspected source of cellulitis on right lower extremity. Only 4/10 pain therefore less likely compartment syndrome. Some concern for necrotizing fasciitis pending CT leg. Empiric antibiotics started in the ER with Daptomycin + cefepime, will defer further antibiotic selection to ICU, consider switching daptomycin for linezolid and adding clindamycin if concern for nec fasc from CT leg. Cefepime switched to Zosyn from ICU attending Patient on chronic dexamethasone with his Revlimid therefore will start stress dose steroids, hydrocortisone 100mg IV ordered and given, further dosing per ICU team Immunocompromised with multiple myeloma on Revlimid - discontinue Revlimid Sepsis fluid bolus calculates for IDW 2400ml - NSS total 2,5L bolus given in ER, additional albumin given by ICU Holding anti-hypertensives, Levophed started in the ER with MAP < 65 after 0.11, will add vasopressin, ongoing management per ICU team #Syncope Suspect due to shock above, grossly normal EF on POCUS however poor pictures, TTE ordered for AM Hold carvedilol and Bumex #Multiple Myeloma Holding dexamethasone and Revlimid Ok to continue allopurinol #Acute respiratory failure with hypoxia / Witnessed apneic episodes (in the ER) VBG pending to assess for hypercapnia Aim O2 sats > 90%, on admission requiring 8LPM O2 oxymask Recommended CPAP/BiPAP while sleeping/napping #Hypothyroidism Presumed from drug list, TSH pending Continue levothyroxine #Hypokalemia / hypomagnesemia Replacement per ICU protocol, likely secondary to bumetanide VTE Prophylaxis - deferred to ICU team Disposition - admit to ICU Admission and Anticipated Discharge Date Admission Date: June 23, 2025 History of Present Illness Chief Complaint: Right leg erythema, syncope Primary Care Provider: NO PCP Terry Agarwal is a 59 year old male with multiple myeloma from [place] area [place] who presents to the ER with right leg pain and erythema. He reports initial injury with hitting his leg with a rock 2 days ago and started getting erythematous. Progressively getting worse since then with associated fever and chills. No abdominal pain, diarrhea, nausea or vomiting. His main concern is he feels thirsty and wants to drink water. Today while his friend drove him to the hospital and reportedly having chest pain and shortness of breath on the way with two syncopal episodes. He reports having myeloma and on Revlimid and dexamethasone for this which he last took on Friday. He is under Dr Armstrong from [place]. He denies any other medical history including obstructive sleep apnea, heart attack, heart failure, stroke or diabetes. No prior severe infections in the past and no history of MRSA. Allergies Allergy/AdvReac Type Severity Reaction Status Date / Time doxycycline Allergy Verified 06/23/25 14:32 Home Medications Medication Instructions Recorded Confirmed Type allopurinol 100 mg tablet 100 mg PO DAILY 06/23/25 06/23/25 History bumetanide 2 mg tablet 2 mg PO BID 06/23/25 06/23/25 History carvedilol 12.5 mg tablet (Coreg) 12.5 mg PO BID 06/23/25 06/23/25 History dexamethasone 4 mg tablet 40 mg PO WK 06/23/25 06/23/25 History levothyroxine 50 mcg tablet 50 mcg PO DAILY 06/23/25 06/23/25 History Past Med/Surg History Problem List (Updated 06/23/25 @ 18:42 by Lg Hansen MD) Acute respiratory failure with hypoxia Witnessed episode of apnea Hypokalemia Syncope Transaminitis JOSE (acute kidney injury) Cellulitis Septic shock Encephalopathy Medical History (Updated 06/23/25 @ 18:42 by Lg Hansen MD) Hypothyroidism Multiple myeloma Social History Smoking Status: Current every day smoker Tobacco Type: Cigarettes Physical Exam 2 Constitutional: + acute distress (increased respiratory rate) and + morbidly obese Respiratory: + labored breathing, + uses accessory mu scles and + tachypneic Auscultation: + diminished lung sounds (throughout); no crackles, no rhonchi and no wheezes Cardiovascular: Rate/Rhythm: regular rhythm and + tachycardic Heart Sounds: + murmur (systolic) Gastrointestinal (Abdomen): Inspection/Auscultation: + abdomen distended P ercussion/Palpation: abdomen soft; abdomen nontender, no guarding and abdomen not rigid Skin: erythema and swelling of right lower extremity with scabbed over area on lateral side, no fluctuance noted Neurologic: moves all extremities and awake; not confused Psychiatric: Orientation: alert (Falling asleep easily) and oriented x 3 Results & Data Results & Data Vital Signs (Past 12 Hours) Vital Signs Temp Pulse Pulse Resp BP BP Pulse Ox 06/23/25 16:12 37.5 C 06/23/25 15:19 37.5 C 98 H 20 91/55 L 94 06/23/25 14:39 109 H 20 95 06/23/25 14:30 94 06/23/25 14:30 06/23/25 14:29 112 H 06/23/25 14:25 37.3 C 110 H 20 91/68 L 96 O2 Del Method 06/23/25 16:12 06/23/25 15:19 Room Air 06/23/25 14:39 Room Air 06/23/25 14:30 Room Air 06/23/25 14:30 Room Air 06/23/25 14:29 06/23/25 14:25 Room Air Laboratory Results Abnormal lab results 06/23/25 Range/Units 14:36 WBC 3.09 L (4.8-10.8) K/ul RBC 4.02 L (4.70-6.10) M/uL Hgb 12.2 L (14.0-18.0) g/dl Hct 35.6 L (42.0-52.0) % RDW Std Deviation 54.3 H (36.4-46.3) fL RDW Coeff of Shlomo 17.0 H (11.5-14.5) % Lymphocytes # (Manual) 0.49 L (1.2-3.4) K/uL Total Abs Lymphocytes 0.49 L (1.2-3.4) K/uL Monocytes # (Manual) 0.09 L (0.11-0.59) K/uL Metamyelocytes # (Man) 0.12 H (0-0) K/uL Myelocytes # (Manual) 0.03 H (0-0) K/uL Sodium 133 L (136-145) mmol/L Potassium 2.7 L (3.5-5.1) mmol/L Chloride 96 L (98-107) mmol/L Creatinine 1.52 H (0.6-1.4) mg/dl Glucose 189 H (70-99(Fasting)) mg/dl Lactate 4.2 H* (0.4-2.0) mmol/L Calcium 8.1 L (8.6-10.3) mg/dl Magnesium 1.5 L (1.7-2.4) mg/dl AST 55 H (13-39) U/L ALT 68 H (7-52) U/L Alkaline Phosphatase 105 H (34-104) U/L Troponin I High Sens 39.7 H (0-20) pg/ml Total Protein 5.6 L (6.0-8.3) gm/dl Globulin 2.0 L (2.5-4.0) gm/dl Procalcitonin 0.96 H (0-0.5) ng/ml Diagnostic Findings XR chest 1V portable HISTORY: 59 years-old Male Chest pain, nonspecific COMPARISON: None TECHNIQUE: AP view of the chest FINDINGS: Cardiac silhouette is mildly enlarged. Mild right hemidiaphragmatic elevation. No pneumothorax, pleural effusion, airspace consolidation or pulmonary edema. Spondylitic spurring of the spine. Bones appear grossly intact. IMPRESSION: No acute process. CT ANGIOGRAM OF THE CHEST CLINICAL HISTORY: Chest pain. Shortness of breath. Evaluate for pulmonary embolus. COMPARISON STUDY: Chest radiograph performed earlier today. TECHNIQUE: Following the IV administration of 115 cc of Optiray 320, CT angiogram of the chest was performed from the upper abdomen to the thoracic inlet utilizing the pulmonary embolus protocol. Images are reviewed in the axial, sagittal, and coronal planes. 3-D MIPS images are created and assessed. IV contrast was administered without complication. A dose lowering technique was utilized adhering to the principles of ALARA. CT DOSE: 1001.95 mGy.cm FINDINGS: This exam is significantly compromised by respiratory motion. No central pulmonary emboli are identified. The remainder of the pulmonary arteries are suboptimally assessed. The heart is moderately enlarged. There is no pericardial effusion. There is no thoracic aortic dissection. No enlarged axillary, mediastinal or hilar lymph nodes are present. There is no pneumothorax or pleural effusion. Mild subpleural groundglass opacities favor atelectasis. There is no consolidation to suggest pneumonia. No suspicious pulmonary nodules are identified although the lungs are suboptimally assessed due to respiratory motion. Hepatic steatosis is incidentally noted. Visualized portions of the upper abdomen are otherwise unremarkable. IMPRESSION: 1. No central pulmonary emboli. Evaluation of the remainder of the pulmonary arteries is significantly compromised by respiratory motion. 2. No consolidation to suggest pneumonia. 3. Moderate cardiomegaly. 4. Hepatic steatosis. XR tibia fibula RT 2V CLINICAL HISTORY: Right leg injury - eval trauma/FB/infection COMPARISON: None FINDINGS: There are no fractures within the right tibia or fibula. No areas of bony erosion are identified. Severe medial compartment joint space narrowing is noted with osteophytosis. Multiple soft tissue calcifications within the right lower leg are likely vascular in etiology. There is right lower leg soft tissue swelling. No radiopaque foreign bodies are present. IMPRESSION: 1. No fractures or evidence for osteomyelitis within the right tibia or fibula. 2. Right lower leg soft tissue swelling. 3. No radiopaque foreign bodies. DVT ULTRASOUND OF RIGHT LOWER EXTREMITY INDICATION: Pain TECHNIQUE: Grayscale and color Doppler evaluation of the RIGHT femoral-popliteal venous system was performed. A duplex Doppler study was performed, consisting of integrated two-dimensional (2D) real-time imaging: Color flow Doppler and Doppler spectral analysis. COMPARISON: None FINDINGS: RIGHT common femoral, femoral and popliteal veins: Normal compressibility, color flow, respiratory variation. No intraluminal echogenic material. There is a popliteal fossa Paulino's cyst measuring 3.6 x 5.5 x 2.0 cm. Subcutaneous edema with no focal collection identified IMPRESSION: No evidence of deep venous thrombus in the right femoral-popliteal venous system. Popliteal fossa Paulino's cyst measuring 5.5 cm. Subcutaneous edema with no focal collection identified Medications Administered ER Medications Given: Normal saline 1000ml bolus Cefepime 2000mg IV Acetaminophen 1000mg IV Normal saline 500ml bolus Ondansetron 4mg IV Morphine 4mg IV Magnesium sulfate 1g IV Daptomycin 1200mg IV Dilaudid 0.25mg IV ECG Rate (beats per minute): 109 Rhythm: sinus tachycardia Findings: + other (poor R wave progression); no acute ischemic change Comparison ECG Date: no prior available Code Status & VTE Plan Code Status Full VTE Prophylaxis Plan VTE Prophylaxis will be ordered: Yes PG Care Time/CCT Total # of Minutes Spent Total Time Spent with Patient: Total time spent is greater than 50% in coordination of care (as documented) at patient's floor/unit and/or counseling patient: Coding Level of Care Code 20036 INT INP/OBS CARE 3/75MIN Diagnoses Multiple myeloma C90.00 Transaminitis R74.01 Septic shock A41.9; R65.21 Cellulitis L03.90 JOSE (acute kidney injury) N17.9 Encephalopathy G93.40 Syncope R55 Hypokalemia E87.6 Witnessed episode of apnea R06.81 Acute respiratory failure with hypoxia J96.01 Hypothyroidism E03.9
[2025-06-23] MEDS: STAT IV Infusion **Titration per Protocol STA (16:58)
[2025-06-23] MEDS: HYDROCORTISONE SOD SUCCINATE 100 MG/2 ML VIAL IV STA (17:04)
[2025-06-23] MEDS: DAPTOmycin 850 MG in SYRINGE 0 ML IV ONE (17:04)
[2025-06-23] MEDS: ALBUMIN 5% 250 ML IV ONE (17:33)
[2025-06-23] MEDS ORDERED: STAT IV Infusion **Titration per Protocol STA (17:34)
[2025-06-23 17:37] LABS: Anion Gap 12.0 (3-11); Bilirubin,Total 1.1 mg/dl (0.2-1.0); Calcium 7.6 mg/dl (8.6-10.3); Carbon Dioxide 23.0 mmol/L (21-32); Chloride 98.0 mmol/L (98-107); Potassium 2.8 mmol/L (3.5-5.1); Sodium 133.0 mmol/L (136-145)
--- NOTE | 2025-06-23 17:42 | Electrocardiogram Report ---
Test Reason : Blood Pressure : */* mmHG Vent. Rate : 109 BPM Atrial Rate : 109 BPM P-R Int : 158 ms QRS Dur : 86 ms QT Int : 384 ms P-R-T Axes : -16 1 -12 degrees QTcB Int : 517 ms Sinus tachycardia Cannot rule out Inferior infarct , age undetermined Poor R wave progression, consider anterior HI vs. lead placement vs. LVH Abnormal ECG No previous ECGs available Confirmed by Mike Churchill ([id number]) on 06/23/2025 5:41:38 PM Referred By: Confirmed By: Mike Churchill
[2025-06-23 17:43] LABS: Alanine Aminotransferase 74.0 U/L (7-52); Albumin Globulin Ratio 1.5 (0.9-2); Alkaline Phosphatase 104.0 U/L (34-104); Blood Urea Nitrogen 22.0 mg/dl (6-23); Creatine Kinase 92.0 U/L (30-223); Creatinine Clr Calc Pharmacy 87.3 ml/min; Globulin 2.2 gm/dl (2.5-4.0); Glucose 186.0 mg/dl (70-99(Fasting)); Total Protein 5.6 gm/dl (6.0-8.3)
--- NOTE | 2025-06-23 17:53 | Critical Care Consultation ---
Date of Consultation June 23, 2025 Assessment & Plan (1) Encephalopathy: (2) Septic shock: (3) Cellulitis: (4) JOSE (acute kidney injury): (5) Transaminitis: (6) Multiple myeloma: Plan Reason Critically Ill: 59-year-old male was brought in by his friend because he was not doing well. He was hypotensive in the ED from right lower leg cellulitis started on Levophed Past medical history: Multiple myeloma on Revlimid and dexamethasone, morbid obesity Neuro - [facility] ICU: Negative --Encephalopathy Likely secondary to sepsis Cardiac - -- Septic shock From right lower cellulitis Given the patient is on dexamethasone at home, will give stress dose steroids Continue vasopressor support to keep MAP greater than 65 Respiratory - -- Acute hypoxic respiratory failure Seems to be from VQ mismatch from morbid obesity CTA chest did not show any abnormalities when it comes to pulmonary parenchyma --Probable ISHMAEL Outpatient polysomnography BiPAP nightly and as needed shortness of breath GI - -- Transaminitis Likely from sepsis Continue to trend RENAL/LYTES - -- JOSE Monitor BUN/creatinine Avoid nephrotoxic medications Strict ins and outs ENDO - --Hypothyroidism Continue with levothyroxine -- ICU hyperglycemia protocol HEME - -- History of multiple myeloma On Revlimid along with dexamethasone ID - -- Right lower extremity cellulitis Continue with broad-spectrum antibiotics Got daptomycin and cefepime in the ED Procalcitonin 0.96 --Prophylaxis VTE: None as patient might need to go to the OR GI: None Lines: Peripheral Diet: N.p.o. Plan: Patient got so for 2.5 L. Will give 5% albumin 100 mg hydrocortisone followed by [address] of right tibia and fibula to rule out necrotizing fasciitis Follow-up CPK. Patient got daptomycin in the ED along with cefepime, I will change it to Zosyn for anaerobic coverage given the patient is immunosuppressed Patient will be a difficult to get central line access in the neck. A1 groin might be difficult I think the best approach would be to get a PICC line if possible for vasopressor support. Patient is high risk for intubation, will need anesthesia backup if he reaches that point. BiPAP nightly and as needed shortness of breath Case was discussed with primary team I have personally spent 62 minutes of critical care time in the direct management of this patient. This is a life/limb threatening event. This includes time spent evaluating patient, direct bedside care, chart review, placing orders, interpretation of diagnostic studies, discussion with consultants, patient, and family members, as well as other required patient management activities. This time is exclusive of all separately billable procedures, and teaching time and separate from and in addition to any other critical care service time. History of Present Illness History of Present Illness 59-year-old male was brought in by his friend because he was not doing well. He was hypotensive in the ED from right lower leg cellulitis started on Levophed Past medical history: Multiple myeloma on Revlimid and dexamethasone, morbid obesity At the time of examination patient was on 0.05 of Levophed. His MAP was 67. He had gotten 0.25 Dilaudid prior to me arriving. He was on 5 L oxy mask, saturating 92-93%. RN was also in the room along with his friend. Patient said he hurt his leg approximately 10 days ago. Unfortunately did not seek any medical attention. As per the patient's friend he probably passed out couple of times while he was being driven to the ER. He denied any abdominal pain No headache Unsure if he hit something or if something bit him. Social history: [id number]-[id number] smoking history, now currently smoking half a pack a day. Allergies Allergy/AdvReac Type Severity Reaction Status Date / Time doxycycline Allergy Verified 06/23/25 14:32 Home Medications Medication Instructions Recorded Confirmed Type allopurinol 100 mg tablet 100 mg PO DAILY 06/23/25 06/23/25 History bumetanide 2 mg tablet 2 mg PO BID 06/23/25 06/23/25 History carvedilol 12.5 mg tablet (Coreg) 12.5 mg PO BID 06/23/25 06/23/25 History dexamethasone 4 mg tablet 40 mg PO WK 06/23/25 06/23/25 History levothyroxine 50 mcg tablet 50 mcg PO DAILY 06/23/25 06/23/25 History Patient History Social History Smoking Status: Current every day smoker Tobacco Type: Cigarettes Review of Systems 2 Review of Systems: All systems reviewed & are unremarkable except as noted in HPI & below and Unobtainable due to cognitive status Physical Exam 2 Physical Exam: Constitutional: No acute distress HEENT: EOMI, PERRLA, short thick neck Respiratory system: Decreased air entry bilaterally, no wheeze, no rhonchi, mild crackles bilateral lower lobe CVS: S1-S2 positive, no murmurs or gallops Abdomen: Soft, nontender, nondistended, positive bowel sounds x4 Extremities: +2 pulses bilaterally radialis/ dorsalis pedis, no cyanosis, +3 pitting edema bilateral lower extremity, right lower extremity positive rubor, positive calor, positive dolor, no clear crepitus Neuro: Somnolent but easily arousable, answering all the questions appropriately Psych: Normal mood and affect G/U: No Summers Skin: no rashes, warm and dry Lymphatic: no cervical or axillary lymphadenopathy Results & Data Results & Data Vital Signs (Past 12 Hours) Vital Signs Temp Pulse Pulse Resp BP BP Pulse Ox 06/23/25 17:01 22 91 06/23/25 16:56 100 H 35 H 117/67 93 06/23/25 16:50 125/71 06/23/25 16:45 98/53 L 06/23/25 16:45 100 H 35 H 93 06/23/25 16:42 111/70 06/23/25 16:36 99/59 L 06/23/25 16:33 99 H 14 90 06/23/25 16:31 73/48 L 06/23/25 16:21 102 H 28 H 90/53 L 88 L 06/23/25 16:12 95 H 15 94 06/23/25 16:12 37.5 C 06/23/25 16:11 91/55 L 06/23/25 16:11 91/55 L 06/23/25 16:08 101 H 20 83/55 L 94 06/23/25 15:19 37.5 C 98 H 20 91/55 L 94 06/23/25 15:09 95 06/23/25 15:00 94 06/23/25 14:57 94 06/23/25 14:45 95 06/23/25 14:42 96 06/23/25 14:39 109 H 20 95 06/23/25 14:35 125/80 06/23/25 14:30 94 06/23/25 14:30 06/23/25 14:29 91/68 L 06/23/25 14:29 112 H 06/23/25 14:25 37.3 C 110 H 20 91/68 L 96 O2 Del Method O2 Flow Rate 06/23/25 17:01 Aerosol Mask 5 06/23/25 16:56 06/23/25 16:50 06/23/25 16:45 06/23/25 16:45 06/23/25 16:42 06/23/25 16:36 06/23/25 16:33 06/23/25 16:31 06/23/25 16:21 06/23/25 16:12 06/23/25 16:12 06/23/25 16:11 06/23/25 16:11 06/23/25 16:08 06/23/25 15:19 Room Air 06/23/25 15:09 06/23/25 15:00 06/23/25 14:57 06/23/25 14:45 06/23/25 14:42 06/23/25 14:39 Room Air 06/23/25 14:35 06/23/25 14:30 Room Air 06/23/25 14:30 Room Air 06/23/25 14:29 06/23/25 14:29 06/23/25 14:25 Room Air Laboratory Results 06/23/25 14:36 06/23/25 17:05 Coding Level of Care Code 52968 CRITICAL CARE 1ST 30-74M Diagnoses Encephalopathy G93.40 Septic shock A41.9; R65.21 Cellulitis L03.90 JOSE (acute kidney injury) N17.9 Transaminitis R74.01 Multiple myeloma C90.00
[2025-06-23] MEDS: POTASSIUM CHLORIDE / WTR 10 MEQ/100 ML PLCT IV SCH (18:07)
[2025-06-23 18:51] LABS: Thyroid Stimulating Hormone 1.525 uIu/ml (0.300-4.500)
--- NOTE | 2025-06-23 19:24 | CT Scan Report ---
CT extremity without contrast History: Pain/weakness Comparison: None Technique: CT performed of the extremity without IV contrast. Dose reduction techniques were achieved by using automatic exposure control and/or adjustment of mA and/or kV according to patient size and/or use of iterative reconstruction technique. Findings: No fracture or dislocation. Moderate to severe medial compartment degenerative change of the knee. There is dense subcutaneous edema of the lower leg circumferentially. There is a popliteal fossa Paulino's cyst. The deep muscular fascial planes appear preserved. No soft tissue gas. No focal fluid collection. No evidence for abscess. No aggressive osseous lesion. Impression: Subcutaneous edema, without further evidence to specifically suggest necrotizing fasciitis. Electronically signed by Mike Yeung 06-23-2025 7:24 PM
[2025-06-23] MEDS: PIPERACILLIN/TAZOBACTAM 4.5 GM/100 ML BAG IV STA (19:43)
[2025-06-23] MEDS: ONDANSETRON INJ 2 MG/ML 2 ML VIAL IV PRN (19:46)
[2025-06-23 20:03] LABS: Base Excess VBG -2.8 mEq/L; HCO3 VBG 22 mmol/L; Oxygen Saturation VBG 85.0 %; PCO2 VBG 37 mmHg (38-50); PO2 VBG 52 mmHg; pH VBG 7.38 (7.36-7.41)
[2025-06-23] MEDS ORDERED: GLUCOSE 40% GEL 15 GM TUBE PO PRN (20:23)
[2025-06-23] MEDS ORDERED: DEXTROSE 50% 50 ML SYRINGE IV PRN (20:23)
[2025-06-23] MEDS ORDERED: CARBOHYDRATES FOR HYPOGLYCEMIA PO PRN (20:23)
[2025-06-23] MEDS ORDERED: GLUCOSE 10 TAB/TUBE PO PRN (20:23)
[2025-06-23] MEDS ORDERED: GLUCAGON FOR INJ 1 MG VIAL SQ PRN (20:23)
[2025-06-23 22:01] LABS: Appearance Urine Clear (Clear); Glucose Urine UA Negative (Negative)
[2025-06-23] MEDS: HYDROCORTISONE SOD 50 MG in SYRINGE 0 ML IV SCH (23:35)
[2025-06-23] MEDS: PIPERACILLIN/TAZOBACTAM 4.5 GM/100 ML BAG IV SCH (23:35)
[2025-06-23 23:39] LABS: Anion Gap 15.0 (3-11); Blood Urea Nitrogen 23.0 mg/dl (6-23); Calcium 7.3 mg/dl (8.6-10.3); Carbon Dioxide 20.0 mmol/L (21-32); Chloride 97.0 mmol/L (98-107); Creatinine Clr Calc Pharmacy 73.9 ml/min; Glucose 239.0 mg/dl (70-99(Fasting)); Magnesium 1.5 mg/dl (1.7-2.4); Potassium 3.4 mmol/L (3.5-5.1); Sodium 132.0 mmol/L (136-145)
[2025-06-23] MEDS: INSULIN ASPART PER UNIT CHARGE SC SCH (23:44)
[2025-06-24] MEDS: ALBUMIN 5% 250 ML IV ONE (00:30)
[2025-06-24] MEDS: MAGNESIUM SULFATE / D5W 1 GM/100 ML BAG IV SCH (00:40)
[2025-06-24] MEDS: CALCIUM GLUCONATE 1,000 MG/60 ML BAG IV STA ×2 (00:42→12:00)
[2025-06-24] MEDS: LACTATED RINGER'S 250 ML IV ONE (00:48)
[2025-06-24] MEDS: ACETAMINOPHEN 325 MG TAB PO PRN (01:15)
[2025-06-24 02:28] LABS: A calco-baum cmplx NotReported Not Detected (NotDetected); Bact fragilis Not Reported Not Detected (NotDetected); Blood Culture Id Panel See PCR Comment (NotDetected); C auris Not Reported Not Detected (NotDetected); Calbicans Not Reported Not Detected (NotDetected); Candida glabrata Not Reported Not Detected (NotDetected); Candida krusei Not Reported Not Detected (NotDetected); Cneoformans/gatti Not Reported Not Detected (NotDetected); Cparapsilosis Not Reported Not Detected (NotDetected); Ctropicalis Not Reported Not Detected (NotDetected); E cloacae compx Not Reported Not Detected (NotDetected); Efaecalis Not Reported Not Detected (NotDetected); Efaecium Not Reported Not Detected (NotDetected); Enterobacterales Not Reported Not Detected (NotDetected); Escherichia coli Not Reported Not Detected (NotDetected); H influenzae Not Reported Not Detected (NotDetected); K aerogenes Not Reported Not Detected (NotDetected); Koxytoca Not Reported Not Detected (NotDetected); Kpneumoniae grp Not Reported Not Detected (NotDetected); Lmonocyt Not Reported Not Detected (NotDetected); N meningitidis Not Reported Not Detected (NotDetected); P aeruginosa Not Reported Not Detected (NotDetected); Proteus spp Not Reported Not Detected (NotDetected); Salmonella spp Not Reported Not Detected (NotDetected); Staph lugdunensis Not Reported Not Detected (NotDetected); Staph spp. Not Reported Not Detected (NotDetected); Staphaureus Not Reported Not Detected (NotDetected); Staphepi Not Reported Not Detected (NotDetected); Stenmaltophilia Not Reported Not Detected (NotDetected); Strep agal(GrpB) Not Reported Not Detected (NotDetected); Strep pneum Not Reported Not Detected (NotDetected); Strep pyog (GrpA) Not Reported Not Detected (NotDetected); Strep spp Not Reported DETECTED (NotDetected)
[2025-06-24 02:34] LABS: Streptococcus spp DETECTED (NotDetected)
[2025-06-24 04:47] LABS: Anion Gap 14.0 (3-11); Blood Urea Nitrogen 24.0 mg/dl (6-23); Calcium 7.1 mg/dl (8.6-10.3); Carbon Dioxide 20.0 mmol/L (21-32); Chloride 92.0 mmol/L (98-107); Creatinine Clr Calc Pharmacy 76.0 ml/min; Glucose 378.0 mg/dl (70-99(Fasting)); Magnesium 1.9 mg/dl (1.7-2.4); Potassium 3.5 mmol/L (3.5-5.1); Sodium 126.0 mmol/L (136-145)
[2025-06-24 04:57] LABS: Hematocrit (blood only) 32.5 % (42.0-52.0); Hemoglobin 11.1 g/dl (14.0-18.0); Mean Corpuscular Hemoglobin 30.7 pg (25.0-34.0); Mean Corpuscular Volume 90.0 fL (80.0-100.0); Platelet Count 172 K/uL (130-400); RDW Standard Deviation 57.3 fL (36.4-46.3); Red Blood Count 3.61 M/uL (4.70-6.10); White Blood Count 5.96 K/ul (4.8-10.8)
[2025-06-24 05:03] LABS: ALC (manual) 0.18 K/uL (1.2-3.4); ANC (manual) 4.35 K/uL (1.4-6.5); Dohle Bodies 1+; Polychromasia 1+
[2025-06-24] MEDS ORDERED: PHARMACY GLYCEMIC MGMT CONSULT PRN (05:19)
[2025-06-24] MEDS: POTASSIUM CHLORIDE CRTAB 20 MEQ TABCR PO STA (05:49)
[2025-06-24] MEDS: INSULIN ASPART PER UNIT CHARGE SC ONE (05:50)
[2025-06-24 07:12] LABS: Alanine Aminotransferase 60.0 U/L (7-52); Alkaline Phosphatase 73.0 U/L (34-104); Bilirubin,Total 1.7 mg/dl (0.2-1.0); Total Protein 5.0 gm/dl (6.0-8.3)
[2025-06-24 07:18] LABS: Hemoglobin A1C 7.8 % (4.5-5.6)
--- NOTE | 2025-06-24 07:59 | Critical Care Progress Note ---
Date of Service June 24, 2025 Assessment & Plan (1) Encephalopathy: (2) Septic shock: (3) Cellulitis: (4) JOSE (acute kidney injury): (5) Transaminitis: (6) Multiple myeloma: Plan Reason Critically Ill: 59-year-old male was brought in by his friend because he was not doing well. He was hypotensive in the ED from right lower leg cellulitis started on Levophed Past medical history: Multiple myeloma on Revlimid and dexamethasone, morbid obesity Neuro - [facility]: Negative --Encephalopathy --> improved Likely secondary to sepsis Cardiac - -- Septic shock from gram-positive bacteremia From right lower cellulitis Given the patient is on dexamethasone at home, will give stress dose steroids Continue vasopressor support to keep MAP greater than 65 Respiratory - -- Acute hypoxic respiratory failure Seems to be from VQ mismatch from morbid obesity CTA chest did not show any abnormalities when it comes to pulmonary parenchyma --Probable ISHMAEL Outpatient polysomnography BiPAP nightly and as needed shortness of breath GI - -- Transaminitis --> trending down Likely from sepsis Continue to trend RENAL/LYTES - -- JOSE --> improving Monitor BUN/creatinine Avoid nephrotoxic medications Strict ins and outs ENDO - --Hypothyroidism Continue with levothyroxine -- ICU hyperglycemia protocol HEME - -- History of multiple myeloma On Revlimid along with dexamethasone ID - -- Right lower extremity cellulitis with gram-positive bacteremia Continue with broad-spectrum antibiotics Got daptomycin and cefepime in the ED Antibiotics changed to Rocephin and Flagyl on 06/24/2025 Procalcitonin 0.96 Follow-up sensitivities --Prophylaxis VTE: None as patient might need to go to the OR GI: None Lines: Peripheral, left arm PICC Diet: N.p.o. Plan: In/out: Positive for 0.7 L, urine output 1425 Tmax 38.3 Magnesium and potassium being replaced Hyponatremia with hypochloremia is most likely from patient getting D5 water. Will change all the antibiotics and IV fluids to normal saline. Will likely need diuresis once we are able to get him off vasopressors and his kidney function improves Once the patient is able to be taken off of vasopressors then we will remove the left arm PICC line. Antibiotics changed to Rocephin and Flagyl. Clear liquid diet, advance as tolerated if the patient is able to be taken off vasopressors. BiPAP nightly and as needed shortness of breath Case was discussed with primary team I have personally spent 38 minutes of critical care time in the direct management of this patient. This is a life/limb threatening event. This includes time spent evaluating patient, direct bedside care, chart review, placing orders, interpretation of diagnostic studies, discussion with consultants, patient, and family members, as well as other required patient management activities. This time is exclusive of all separately billable procedures, and teaching time and separate from and in addition to any other critical care service time. Admission and Anticipated Discharge Date Admission Date: June 23, 2025 Subjective Patient seen and examined at bedside. No acute distress, no adverse events overnight Still complaining of right lower extremity tenderness Was on Levophed 0.03 with MAP in the high 60s. Overall he stated he is feeling better compared to before He did use BiPAP overnight. Denied any nausea or vomiting No abdominal pain No headache or dizziness. Review of Systems 2 Review of Systems: All systems reviewed & are unremarkable except as noted in Subjective Physical Exam 2 Physical Exam: Constitutional: No acute distress HEENT: EOMI, PERRLA, short thick neck Respiratory system: Decreased air entry bilaterally, no wheeze, no rhonchi, mild crackles bilateral lower lobe CVS: S1-S2 positive, distant heart sounds Abdomen: Soft, nontender, nondistended, positive bowel sounds x4 Extremities: +2 pulses bilaterally radialis/ dorsalis pedis, no cyanosis, +3 pitting edema bilateral lower extremity, right lower extremity positive rubor, positive calor, positive dolor, no clear crepitus Neuro: Awake alert oriented x 3 Psych: Normal mood and affect G/U: Positive Summers Skin: no rashes, warm and dry Lymphatic: no cervical or axillary lymphadenopathy Results & Data Results & Data Vital Signs (Past 12 Hours) Vital Signs Temp Pulse Resp BP BP Pulse Ox O2 Del Method 06/24/25 06:31 37.8 C H 79 25 H 125/67 100 BiPAP 06/24/25 06:16 37.7 C H 78 24 109/72 100 BiPAP 06/24/25 06:01 37.8 C H 81 21 114/74 97 BiPAP 06/24/25 05:31 37.8 C H 82 22 101/68 99 BiPAP 06/24/25 05:16 37.8 C H 83 22 107/68 99 BiPAP 06/24/25 05:01 37.8 C H 82 28 H 103/70 98 BiPAP 06/24/25 04:30 37.8 C H 83 22 106/71 99 BiPAP 06/24/25 04:16 37.9 C H 85 21 100/71 99 BiPAP 06/24/25 04:15 37.9 C H 86 25 H 100/71 99 BiPAP 06/24/25 04:01 37.9 C H 84 25 H 108/69 99 BiPAP 06/24/25 03:31 104/66 06/24/25 03:31 38.0 C H 86 22 104/66 98 BiPAP 06/24/25 03:01 38.1 C H 87 20 99/67 L 99 BiPAP 06/24/25 02:45 38.1 C H 85 22 104/67 98 BiPAP 06/24/25 02:31 38.1 C H 86 20 94/64 L 98 BiPAP 06/24/25 02:16 38.1 C H 90 23 92/61 L 98 BiPAP 06/24/25 02:12 88 22 100 06/24/25 01:31 38.2 C H 88 23 103/68 100 BiPAP 06/24/25 01:16 38.3 C H 91 H 17 104/71 100 BiPAP 06/24/25 01:01 38.4 C H 90 22 97/71 L 99 BiPAP 06/24/25 00:45 93/74 L 06/24/25 00:31 37.8 C H 95 H 25 H 91/69 L 99 BiPAP 06/24/25 00:16 110/76 06/24/25 00:00 95/71 L 06/24/25 00:00 92 H 06/23/25 23:46 93 H 26 H 100/70 100 BiPAP 06/23/25 23:31 92 H 24 89/68 L 100 BiPAP 06/23/25 23:01 90 24 100 06/23/25 22:46 89 24 110/67 100 BiPAP 06/23/25 22:31 102/65 06/23/25 22:16 92 H 23 100/67 100 BiPAP 06/23/25 22:01 94 H 23 101/65 100 BiPAP 06/23/25 21:46 98 H 23 101/66 100 BiPAP 06/23/25 21:31 97 H 24 111/74 100 BiPAP 06/23/25 21:16 96 H 23 110/71 100 BiPAP 06/23/25 21:01 104 H 17 114/69 100 BiPAP 06/23/25 20:46 112/54 L 06/23/25 20:31 104 H 25 H 95/52 L 98 BiPAP 06/23/25 20:16 106 H 25 H 106/52 L 96 BiPAP 06/23/25 20:00 94/60 L 06/23/25 20:00 104 H 26 H 93 FiO2 06/24/25 06:31 30 06/24/25 06:16 30 06/24/25 06:01 30 06/24/25 05:31 30 06/24/25 05:16 30 06/24/25 05:01 30 06/24/25 04:30 30 06/24/25 04:16 30 06/24/25 04:15 30 06/24/25 04:01 30 06/24/25 03:31 06/24/25 03:31 30 06/24/25 03:01 30 06/24/25 02:45 30 06/24/25 02:31 30 06/24/25 02:16 30 06/24/25 02:12 30 06/24/25 01:31 35 06/24/25 01:16 35 06/24/25 01:01 35 06/24/25 00:45 06/24/25 00:31 35 06/24/25 00:16 06/24/25 00:00 06/24/25 00:00 06/23/25 23:46 35 06/23/25 23:31 35 06/23/25 23:01 35 06/23/25 22:46 35 06/23/25 22:31 06/23/25 22:16 35 06/23/25 22:01 35 06/23/25 21:46 35 06/23/25 21:31 35 06/23/25 21:16 35 06/23/25 21:01 35 06/23/25 20:46 06/23/25 20:31 35 06/23/25 20:16 35 06/23/25 20:00 06/23/25 20:00 35 Laboratory Results 06/24/25 04:03 06/24/25 04:02 Coding Level of Care Code 55303 CRITICAL CARE 1ST 30-74M Diagnoses Encephalopathy G93.40 Septic shock A41.9; R65.21 Cellulitis L03.90 JOSE (acute kidney injury) N17.9 Transaminitis R74.01 Multiple myeloma C90.00
[2025-06-24] MEDS: LANTUS PER UNIT CHARGE SC SCH ×2 (08:22→21:03)
[2025-06-24] MEDS: INSULIN ASPART PER UNIT CHARGE SC SCH ×2 (08:22→16:42)
[2025-06-24] MEDS: metroNIDAZOLE 500 MG/100 ML BAG IV SCH (10:44)
--- NOTE | 2025-06-24 11:33 | XCELERA ---
[id number] \\[id number]
[2025-06-24] MEDS: cefTRIAXone SODIUM 2,000 MG/50 ML BAG IV SCH (11:48)
[2025-06-24] MEDS: HYDROmorphone INJ 0.5 MG/0.5 ML SYR IV PRN (12:24)
--- NOTE | 2025-06-24 13:22 | Pharmacy Report ---
Pharmacy Glycemic Short Note 2 - Date of Service June 24, 2025 - Glycemic Short BSG Results (Last 24 hours): 06/23/25 06/23/25 06/23/25 14:36 17:05 20:19 Glucose 189 H 186 H POC Glucose 236 H 06/23/25 06/24/25 06/24/25 22:55 04:02 07:35 Glucose 239 H 378 H* POC Glucose 190 H 06/24/25 11:24 Glucose POC Glucose 213 H OUTPATIENT ANTIDIABETIC REGIMEN: * N/A * A1c 7.8% 06/24/25 ASSESSMENT: * Patient admitted septic shock- cellulitis with strep bacteremia. * BSG on labs overnight 378 mg/dL-- on levophed which is being titrated off. On hydrocortisone 50 mg q6h * Insulin infusion initially deferred d/t Novolog dose administered prior to consult. Novolog parameters were adjusted to weight stress 2- actual body weight * BSG down to 190 mg/dL on 0800 check. Breakfast ordered * Will continue with basal/bolus for now as pressors are being weaned off and BSG has improved. * Will initiate weight stress 2 basal- adjusted body weight for now. Monitor trend * Lower threshold to begin insulin infusion PLAN FOR INPATIENT GLYCEMIC CONTROL: * Hold outpatient oral diabetes medications * Basal insulin * Lantus 20 units SQ BID * Bolus insulin * NovoLog per scale ACHS or Q6hrs while NPO * Goal Range: Low 110 mg/dL - High 140 mg/dL * Correction Factor: 15 mg/dL/unit * Nutritional / Prandial insulin per carb ratio of 1 unit per 5 grams CHO consumed
--- NOTE | 2025-06-24 13:58 | Hospitalist Progress Note ---
Date of Service June 24, 2025 Assessment & Plan (1) Multiple myeloma: (2) Transaminitis: (3) Septic shock: (4) Cellulitis: (5) JOSE (acute kidney injury): (6) Encephalopathy: (7) Syncope: (8) Hypokalemia: (9) Witnessed episode of apnea: (10) Acute respiratory failure with hypoxia: (11) Hypothyroidism: (12) Type 2 diabetes mellitus: Plan 59 year old male with multiple myeloma on Revlimid/dexamethasone presents to the ER with right lower extremity cellulitis and fever #Septic shock Suspected source of cellulitis on right lower extremity. CT without concern for necrotizing fasciitis, Streptococcus on blood culture PCR, awaiting full identification and sensitivities Antibiotics narrowed to ceftriaxone to cover strep and added metronidazole for anaerobic coverage in case slow anaerobes growing in addition in cultures Hydrocortisone can wean over the next 2-3 days, will continue on 50mg q6h today as only just come off Levophed Immunocompromised with multiple myeloma on Revlimid - discontinue Revlimid Levophed now weaned off this morning, will downgrade this afternoon if remains off Levophed Remove hewitt catheter tomorrow as long as still doing well Transaminitis and lactate improving #Type 2 diabetes mellitus - newly diagnosed with HbA1C 7.8 Insulin while on steroids as inpatient but can likely be switched on discharge, probably good ability to go into remission with weight loss although with steroids this will be more difficult Appreciate pharmacy glycemic control with insulin dosing #JOSE Patient reports baseline Cr around 1. Continue to monitor with AM labs. Currently clinically euvolemic. #Syncope Suspect due to shock above, grossly normal EF on POCUS however poor pictures, TTE reassuring, increased right systolic pressure likely due to obesity restrive lung disease, consider PFTs as outpatient Hold carvedilol and Bumex #Multiple Myeloma Holding dexamethasone and Revlimid Ok to continue allopurinol #Acute respiratory failure with hypoxia / Witnessed apneic episodes (in the ER) VBG yesterday without significant hypercapnia Hypoxia now resolved and on room air Continue CPAP while sleeping/napping, will need sleep apnea testing as outpatient #Hypothyroidism TSH 1.525 Continue levothyroxine #Hypokalemia / hypomagnesemia Replacement per ICU protocol, likely secondary to bumetanide #Hyponatremia Worsening overnight, repeat in afternoon with serum osm and repeat urine osm/Na VTE Prophylaxis - heparin 5000 units SQ q8h Disposition - stable for transfer to PCU this afternoon as long as he stays of Levophed Admission and Anticipated Discharge Date Admission Date: June 23, 2025 Subjective Feeling much improved. Still with pain in leg and no significant change in erythema however. Eating and drinking. Discussed new diagnoses of suspected obstructive sleep apnea and type 2 diabetes mellitus. Physical Exam Constitutional: well developed and + morbidly obese; no acute distress Respiratory: normal respiratory effort; no respiratory distress Ausculta tion: + diminished lung sounds (improved); no crackles, no rhonchi and no wheezes Cardiovascular: Rate/Rhythm: regular rate and regular rhythm Gastrointestinal (Abdomen): Inspection/Auscultation: + abdomen distended Percussion/Palpation: abdomen soft; abdomen nontender, no guarding and abdomen not rigid Neurologic: moves all extremities and awake; not confused Psychiatric: Orientation: alert and oriented x 3 Results & Data Results & Data Vital Signs (Past 12 Hours) Vital Signs Temp Pulse Resp BP BP Pulse Ox O2 Del Method 06/24/25 10:46 116/55 L 06/24/25 09:16 101/65 06/24/25 09:16 101/65 06/24/25 09:16 101/65 06/24/25 09:15 37.2 C 73 26 H 96 06/24/25 09:03 37.3 C 76 26 H 94 06/24/25 09:01 127/55 L 06/24/25 08:45 37.4 C 77 27 H 88 L 06/24/25 08:42 37.4 C 78 28 H 06/24/25 08:39 110/51 L 06/24/25 08:39 110/51 L 06/24/25 08:27 37.5 C 75 27 H 100 06/24/25 08:21 37.5 C 79 29 H 99 06/24/25 08:17 113/51 L 06/24/25 08:17 113/51 L 06/24/25 08:06 37.6 C H 83 18 98 Room Air 06/24/25 08:01 118/65 06/24/25 08:01 118/65 06/24/25 08:00 Room Air 06/24/25 08:00 79 06/24/25 07:57 37.6 C H 83 25 H 100 06/24/25 07:48 37.6 C H 83 22 97 06/24/25 07:46 144/69 H 06/24/25 07:46 144/69 H 06/24/25 07:42 37.6 C H 85 23 100 06/24/25 07:39 37.6 C H 89 23 98 06/24/25 07:31 122/66 06/24/25 07:18 37.7 C H 86 26 H 99 06/24/25 07:16 127/61 06/24/25 07:16 127/61 06/24/25 07:15 37.7 C H 83 23 100 BiPAP 06/24/25 07:01 104/63 06/24/25 06:31 37.8 C H 79 25 H 125/67 100 BiPAP 06/24/25 06:16 37.7 C H 78 24 109/72 100 BiPAP 06/24/25 06:01 37.8 C H 81 21 114/74 97 BiPAP 06/24/25 05:31 37.8 C H 82 22 101/68 99 BiPAP 06/24/25 05:16 37.8 C H 83 22 107/68 99 BiPAP 06/24/25 05:01 37.8 C H 82 28 H 103/70 98 BiPAP 06/24/25 04:30 37.8 C H 83 22 106/71 99 BiPAP 06/24/25 04:16 37.9 C H 85 21 100/71 99 BiPAP 06/24/25 04:15 37.9 C H 86 25 H 100/71 99 BiPAP 06/24/25 04:01 37.9 C H 84 25 H 108/69 99 BiPAP 06/24/25 03:31 104/66 06/24/25 03:31 38.0 C H 86 22 104/66 98 BiPAP 06/24/25 03:01 38.1 C H 87 20 99/67 L 99 BiPAP 06/24/25 02:45 38.1 C H 85 22 104/67 98 BiPAP 06/24/25 02:31 38.1 C H 86 20 94/64 L 98 BiPAP 06/24/25 02:16 38.1 C H 90 23 92/61 L 98 BiPAP 06/24/25 02:12 88 22 100 FiO2 06/24/25 10:46 06/24/25 09:16 06/24/25 09:16 06/24/25 09:16 06/24/25 09:15 06/24/25 09:03 06/24/25 09:01 06/24/25 08:45 06/24/25 08:42 06/24/25 08:39 06/24/25 08:39 06/24/25 08:27 06/24/25 08:21 06/24/25 08:17 06/24/25 08:17 06/24/25 08:06 06/24/25 08:01 06/24/25 08:01 06/24/25 08:00 06/24/25 08:00 06/24/25 07:57 06/24/25 07:48 06/24/25 07:46 06/24/25 07:46 06/24/25 07:42 06/24/25 07:39 06/24/25 07:31 06/24/25 07:18 06/24/25 07:16 06/24/25 07:16 06/24/25 07:15 30 06/24/25 07:01 06/24/25 06:31 30 06/24/25 06:16 30 06/24/25 06:01 30 06/24/25 05:31 30 06/24/25 05:16 30 06/24/25 05:01 30 06/24/25 04:30 30 06/24/25 04:16 30 06/24/25 04:15 30 06/24/25 04:01 30 06/24/25 03:31 06/24/25 03:31 30 06/24/25 03:01 30 06/24/25 02:45 30 06/24/25 02:31 30 06/24/25 02:16 30 06/24/25 02:12 30 Laboratory Results Abnormal lab results 06/23/25 06/23/25 06/23/25 Range/Units 14:36 17:05 19:49 RBC (4.70-6.10) M/uL Hgb (14.0-18.0) g/dl Hct (42.0-52.0) % RDW Std Deviation (36.4-46.3) fL RDW Coeff of Shlomo (11.5-14.5) % Lymphocytes # (Manual) 0.49 L (1.2-3.4) K/uL Total Abs Lymphocytes 0.49 L (1.2-3.4) K/uL Monocytes # (Manual) 0.09 L (0.11-0.59) K/uL Metamyelocytes # (Man) 0.12 H (0-0) K/uL Myelocytes # (Manual) 0.03 H (0-0) K/uL VBG pCO2 37 L (38-50) mmHg Sodium 133 L (136-145) mmol/L Potassium 2.8 L (3.5-5.1) mmol/L Chloride (98-107) mmol/L Carbon Dioxide (21-32) mmol/L Anion Gap 12 H (3-11) BUN (6-23) mg/dl Creatinine 1.54 H (0.6-1.4) mg/dl Glucose 186 H (70-99(Fasting)) mg/dl POC Glucose (70-99) mg/dl Hemoglobin A1c (4.5-5.6) % Lactate 3.8 H* (0.4-2.0) mmol/L Calcium 7.6 L (8.6-10.3) mg/dl Magnesium (1.7-2.4) mg/dl Total Bilirubin 1.1 H (0.2-1.0) mg/dl Direct Bilirubin (0-0.2) mg/dl AST 53 H (13-39) U/L ALT 74 H (7-52) U/L Troponin I High Sens 38.7 H (0-20) pg/ml Total Protein 5.6 L (6.0-8.3) gm/dl Albumin (3.4-5.0) gm/dl Globulin 2.2 L (2.5-4.0) gm/dl Ur Specific [place] (1.000-1.030) Urine Protein (Negative) Urine Ketones (Negative) Urine Osmolality (500-800) mOsm/kg Streptococcus sp PCR DETECTED A (NotDetected) 06/23/25 06/23/25 06/23/25 Range/Units 20:19 22:55 23:00 RBC (4.70-6.10) M/uL Hgb (14.0-18.0) g/dl Hct (42.0-52.0) % RDW Std Deviation (36.4-46.3) fL RDW Coeff of Shlomo (11.5-14.5) % Lymphocytes # (Manual) (1.2-3.4) K/uL Total Abs Lymphocytes (1.2-3.4) K/uL Monocytes # (Manual) (0.11-0.59) K/uL Metamyelocytes # (Man) (0-0) K/uL Myelocytes # (Manual) (0-0) K/uL VBG pCO2 (38-50) mmHg Sodium 132 L (136-145) mmol/L Potassium 3.4 L D (3.5-5.1) mmol/L Chloride 97 L (98-107) mmol/L Carbon Dioxide 20 L (21-32) mmol/L Anion Gap 15 H (3-11) BUN (6-23) mg/dl Creatinine 1.82 H (0.6-1.4) mg/dl Glucose 239 H (70-99(Fasting)) mg/dl POC Glucose 236 H (70-99) mg/dl Hemoglobin A1c (4.5-5.6) % Lactate 5.4 H* (0.4-2.0) mmol/L Calcium 7.3 L (8.6-10.3) mg/dl Magnesium 1.5 L (1.7-2.4) mg/dl Total Bilirubin (0.2-1.0) mg/dl Direct Bilirubin (0-0.2) mg/dl AST (13-39) U/L ALT (7-52) U/L Troponin I High Sens (0-20) pg/ml Total Protein (6.0-8.3) gm/dl Albumin (3.4-5.0) gm/dl Globulin (2.5-4.0) gm/dl Ur Specific [place] (1.000-1.030) Urine Protein (Negative) Urine Ketones (Negative) Urine Osmolality (500-800) mOsm/kg Streptococcus sp PCR (NotDetected) 06/23/25 06/24/25 06/24/25 Range/Units Unknown 04:02 04:03 RBC 3.61 L (4.70-6.10) M/uL Hgb 11.1 L (14.0-18.0) g/dl Hct 32.5 L (42.0-52.0) % RDW Std Deviation 57.3 H (36.4-46.3) fL RDW Coeff of Shlomo 17.4 H (11.5-14.5) % Lymphocytes # (Manual) 0.18 L (1.2-3.4) K/uL Total Abs Lymphocytes 0.18 L (1.2-3.4) K/uL Monocytes # (Manual) 0.72 H (0.11-0.59) K/uL Metamyelocytes # (Man) 0.36 H (0-0) K/uL Myelocytes # (Manual) 0.18 H (0-0) K/uL VBG pCO2 (38-50) mmHg Sodium 126 L (136-145) mmol/L Potassium (3.5-5.1) mmol/L Chloride 92 L (98-107) mmol/L Carbon Dioxide 20 L (21-32) mmol/L Anion Gap 14 H (3-11) BUN 24 H (6-23) mg/dl Creatinine 1.77 H (0.6-1.4) mg/dl Glucose 378 H* (70-99(Fasting)) mg/dl POC Glucose (70-99) mg/dl Hemoglobin A1c 7.8 H (4.5-5.6) % Lactate 3.7 H* (0.4-2.0) mmol/L Calcium 7.1 L (8.6-10.3) mg/dl Magnesium (1.7-2.4) mg/dl Total Bilirubin 1.7 H D (0.2-1.0) mg/dl Direct Bilirubin 0.7 H (0-0.2) mg/dl AST (13-39) U/L ALT 60 H (7-52) U/L Troponin I High Sens (0-20) pg/ml Total Protein 5.0 L (6.0-8.3) gm/dl Albumin 3.2 L (3.4-5.0) gm/dl Globulin (2.5-4.0) gm/dl Ur Specific [place] > 1.045 H (1.000-1.030) Urine Protein Trace H (Negative) Urine Ketones Trace H (Negative) Urine Osmolality 339 L (500-800) mOsm/kg Streptococcus sp PCR (NotDetected) 06/24/25 06/24/25 06/24/25 Range/Units 06:00 07:35 11:24 RBC (4.70-6.10) M/uL Hgb (14.0-18.0) g/dl Hct (42.0-52.0) % RDW Std Deviation (36.4-46.3) fL RDW Coeff of Shlomo (11.5-14.5) % Lymphocytes # (Manual) (1.2-3.4) K/uL Total Abs Lymphocytes (1.2-3.4) K/uL Monocytes # (Manual) (0.11-0.59) K/uL Metamyelocytes # (Man) (0-0) K/uL Myelocytes # (Manual) (0-0) K/uL VBG pCO2 (38-50) mmHg Sodium (136-145) mmol/L Potassium (3.5-5.1) mmol/L Chloride (98-107) mmol/L Carbon Dioxide (21-32) mmol/L Anion Gap (3-11) BUN (6-23) mg/dl Creatinine (0.6-1.4) mg/dl Glucose (70-99(Fasting)) mg/dl POC Glucose 190 H 213 H (70-99) mg/dl Hemoglobin A1c (4.5-5.6) % Lactate 3.9 H* (0.4-2.0) mmol/L Calcium (8.6-10.3) mg/dl Magnesium (1.7-2.4) mg/dl Total Bilirubin (0.2-1.0) mg/dl Direct Bilirubin (0-0.2) mg/dl AST (13-39) U/L ALT (7-52) U/L Troponin I High Sens (0-20) pg/ml Total Protein (6.0-8.3) gm/dl Albumin (3.4-5.0) gm/dl Globulin (2.5-4.0) gm/dl Ur Specific [place] (1.000-1.030) Urine Protein (Negative) Urine Ketones (Negative) Urine Osmolality (500-800) mOsm/kg Streptococcus sp PCR (NotDetected) 06/24/25 Range/Units 14:51 RBC (4.70-6.10) M/uL Hgb (14.0-18.0) g/dl Hct (42.0-52.0) % RDW Std Deviation (36.4-46.3) fL RDW Coeff of Shlomo (11.5-14.5) % Lymphocytes # (Manual) (1.2-3.4) K/uL Total Abs Lymphocytes (1.2-3.4) K/uL Monocytes # (Manual) (0.11-0.59) K/uL Metamyelocytes # (Man) (0-0) K/uL Myelocytes # (Manual) (0-0) K/uL VBG pCO2 (38-50) mmHg Sodium 130 L (136-145) mmol/L Potassium (3.5-5.1) mmol/L Chloride 96 L (98-107) mmol/L Carbon Dioxide (21-32) mmol/L Anion Gap (3-11) BUN 28 H (6-23) mg/dl Creatinine 1.85 H (0.6-1.4) mg/dl Glucose 178 H (70-99(Fasting)) mg/dl POC Glucose (70-99) mg/dl Hemoglobin A1c (4.5-5.6) % Lactate (0.4-2.0) mmol/L Calcium 7.7 L (8.6-10.3) mg/dl Magnesium (1.7-2.4) mg/dl Total Bilirubin (0.2-1.0) mg/dl Direct Bilirubin (0-0.2) mg/dl AST (13-39) U/L ALT (7-52) U/L Troponin I High Sens (0-20) pg/ml Total Protein (6.0-8.3) gm/dl Albumin (3.4-5.0) gm/dl Globulin (2.5-4.0) gm/dl Ur Specific [place] (1.000-1.030) Urine Protein (Negative) Urine Ketones (Negative) Urine Osmolality (500-800) mOsm/kg Streptococcus sp PCR (NotDetected) PG Care Time/CCT Total # of Minutes Spent Total Time Spent with Patient: Total time spent is greater than 50% in coordination of care (as documented) at patient's floor/unit and/or counseling patient: Coding Level of Care Code 25769 SUB INP/OBS CARE 3/50MIN Diagnoses Multiple myeloma C90.00 Transaminitis R74.01 Septic shock A41.9; R65.21 Cellulitis L03.90 JOSE (acute kidney injury) N17.9 Encephalopathy G93.40 Syncope R55 Hypokalemia E87.6 Witnessed episode of apnea R06.81 Acute respiratory failure with hypoxia J96.01 Hypothyroidism E03.9 Type 2 diabetes mellitus E11.9
[2025-06-24] MEDS: HEPARIN SOD 5,000 UNIT/0.5 ML VIAL SQ SCH (15:04)
[2025-06-24 15:29] LABS: Anion Gap 8.0 (3-11); Blood Urea Nitrogen 28.0 mg/dl (6-23); Calcium 7.7 mg/dl (8.6-10.3); Carbon Dioxide 26.0 mmol/L (21-32); Chloride 96.0 mmol/L (98-107); Creatinine Clr Calc Pharmacy 73.0 ml/min; Glucose 178.0 mg/dl (70-99(Fasting)); Potassium 3.5 mmol/L (3.5-5.1); Sodium 130.0 mmol/L (136-145)
[2025-06-24] MEDS: VASOPRESSIN 20 UNITS in SODIUM CHLORIDE 0.9% 100 ML IV SCH (19:42)
[2025-06-24] MEDS: MONTELUKAST SODIUM 10 MG TABLET PO SCH (21:04)
[2025-06-24] MEDS: NICOTINE 14 MG/24 HR PATCH TD SCH (21:04)
[2025-06-25] MEDS: LEVOTHYROXINE SODIUM 50 MCG TABLET PO SCH (06:15)
[2025-06-25 06:31] LABS: Alanine Aminotransferase 67.0 U/L (7-52); Albumin Globulin Ratio 1.1 (0.9-2); Alkaline Phosphatase 71.0 U/L (34-104); Anion Gap 9.0 (3-11); Bilirubin,Total 0.8 mg/dl (0.2-1.0); Blood Urea Nitrogen 28.0 mg/dl (6-23); Calcium 7.7 mg/dl (8.6-10.3); Carbon Dioxide 25.0 mmol/L (21-32); Chloride 98.0 mmol/L (98-107); Creatinine Clr Calc Pharmacy 77.9 ml/min; Globulin 2.5 gm/dl (2.5-4.0); Glucose 142.0 mg/dl (70-99(Fasting)); Magnesium 2.2 mg/dl (1.7-2.4); Potassium 3.0 mmol/L (3.5-5.1); Sodium 132.0 mmol/L (136-145); Total Protein 5.3 gm/dl (6.0-8.3)
[2025-06-25 06:51] LABS: Hematocrit (blood only) 29.6 % (42.0-52.0); Hemoglobin 10.1 g/dl (14.0-18.0); Mean Corpuscular Hemoglobin 30.1 pg (25.0-34.0); Mean Corpuscular Volume 88.1 fL (80.0-100.0); Platelet Count 111 K/uL (130-400); RDW Standard Deviation 54.8 fL (36.4-46.3); Red Blood Count 3.36 M/uL (4.70-6.10); White Blood Count 5.44 K/ul (4.8-10.8)
[2025-06-25 06:52] LABS: ALC (manual) 0.38 K/uL (1.2-3.4); ANC (manual) 4.68 K/uL (1.4-6.5); Dohle Bodies 1+; Polychromasia 1+
--- NOTE | 2025-06-25 07:25 | Hospitalist Progress Note ---
Date of Service June 25, 2025 Assessment & Plan (1) Multiple myeloma: (2) Transaminitis: (3) Septic shock: (4) Cellulitis: (5) JOSE (acute kidney injury): (6) Encephalopathy: (7) Syncope: (8) Hypokalemia: (9) Witnessed episode of apnea: (10) Acute respiratory failure with hypoxia: (11) Hypothyroidism: (12) Type 2 diabetes mellitus: Plan 59 year old male with multiple myeloma on Revlimid/dexamethasone presents to the ER with right lower extremity cellulitis and fever #Septic shock / Cellulitis / Strep Bacteremia Source = cellulitis on right lower extremity. CT without concern for necrotizing fasciitis, Streptococcus dysgalactiae on blood culture, awaiting sensitivities Continue ceftriaxone, metronidazole can be discontinued this afternoon as long as no anaerobes growing in culture by then Wean hydrocortisone to 50mg IV BID today then 25mg IV BID tomorrow Immunocompromised with multiple myeloma on Revlimid - discontinue Revlimid Remove hewitt catheter this morning and encourage ambulation For pain will give acetaminophen 1g IV TID and oxycodone 5-10mg PO as needed for pain, doubtful compartment syndrome given lack of pain at rest and reduced swelling compared to admission but will get CK with AM labs and monitor for worsening pain. #Type 2 diabetes mellitus - newly diagnosed with HbA1C 7.8 Insulin while on steroids as inpatient but can likely be switched on discharge, probably good ability to go into remission with weight loss although with ongoing steroids for myeloma this will be more difficult Appreciate pharmacy glycemic control with insulin dosing - discussed over the phone regarding weaning hydrocortisone this morning #JOSE Patient reports baseline Cr around 1. Continue to monitor with AM labs. Currently clinically euvolemic. #Syncope Suspect due to shock above, TTE reassuring, increased right systolic pressure likely due to obesity restrictive lung disease, consider PFTs as outpatient Hold carvedilol and Bumex #Multiple Myeloma Holding dexamethasone and Revlimid Ok to continue allopurinol #Acute respiratory failure with hypoxia / Witnessed apneic episodes (in the ER) VBG on admission without significant hypercapnia Hypoxia now resolved and on room air Continue CPAP while sleeping/napping, will need sleep apnea testing as outpatient #Hypothyroidism TSH 1.525 Continue levothyroxine #Hypokalemia / hypomagnesemia Replacement as needed, likely secondary to bumetanide and redistribution of previously prescribed potassium #Hyponatremia Resolving, no treatment required VTE Prophylaxis - heparin 5000 units SQ q8h Disposition - Stable for downgrade to med/surg Admission and Anticipated Discharge Date Admission Date: June 23, 2025 Subjective Ongoing pain in his leg. Not yet been out of bed. When he puts his leg over the side of the bed it gets much worse pain. Some weeping now from his leg however leg swelling and erythema is down. T max last 24 hours 27.7 degrees C. Physical Exam Constitutional: well developed and + morbidly obese; no acute distress Respiratory: normal respiratory effort; no respiratory distress Auscultation: no diminished lung sounds, no crackles, no rhonchi and no wheezes Cardiovascular: Rate/Rhythm: regular rate and regular rhythm Gastrointestinal (Abdomen): Inspection/Auscultation: + abdomen distended Percussion/Palpation: abdomen soft; abdomen nontender, no guarding and abdomen not rigid Skin: Erythema and swelling of RLE improved with associated weeping Neurologic: moves all extremities and awake; not confused Psychiatric: Orientation: alert and oriented x 3 Results & Data Results & Data Vital Signs (Past 12 Hours) Vital Signs Temp Pulse Resp BP Pulse Ox O2 Del Method FiO2 06/25/25 03:13 37.6 C H 81 27 H 109/69 95 Room Air 06/25/25 00:23 86 24 95 30 06/25/25 00:00 84 06/24/25 23:00 37.7 C H 82 26 H 120/78 97 Room Air 06/24/25 20:03 Room Air, BiPAP PG Care Time/CCT Total # of Minutes Spent Total Time Spent with Patient: Total time spent is greater than 50% in coordination of care (as documented) at patient's floor/unit and/or counseling patient: Coding Level of Care Code 33033 SUB INP/OBS CARE 3/50MIN Diagnoses Multiple myeloma C90.00 Transaminitis R74.01 Septic shock A41.9; R65.21 Cellulitis L03.90 JOSE (acute kidney injury) N17.9 Encephalopathy G93.40 Syncope R55 Hypokalemia E87.6 Witnessed episode of apnea R06.81 Acute respiratory failure with hypoxia J96.01 Hypothyroidism E03.9 Type 2 diabetes mellitus E11.9
[2025-06-25] MEDS: POTASSIUM CHLORIDE CRTAB 20 MEQ TABCR PO ONE (07:37)
[2025-06-25] MEDS: CETIRIZINE HCL 10 MG TABLET PO SCH (07:43)
[2025-06-25] MEDS: REMOVE NICODERM PATCH SCH (07:44)
[2025-06-25] MEDS: ESCITALOPRAM OXALATE 10 MG TAB PO SCH (07:44)
[2025-06-25] MEDS: HYDROCORTISONE SOD 50 MG in SYRINGE 0 ML IV SCH (07:46)
[2025-06-25] MEDS: LANTUS PER UNIT CHARGE SC SCH (08:56)
[2025-06-25] MEDS: ACETAMINOPHEN 500 MG TAB PO SCH (08:56)
[2025-06-26 06:42] LABS: Alanine Aminotransferase 43.0 U/L (7-52); Albumin Globulin Ratio 1.2 (0.9-2); Alkaline Phosphatase 74.0 U/L (34-104); Anion Gap 6.0 (3-11); Bilirubin,Total 0.7 mg/dl (0.2-1.0); Blood Urea Nitrogen 29.0 mg/dl (6-23); Calcium 8.1 mg/dl (8.6-10.3); Carbon Dioxide 27.0 mmol/L (21-32); Chloride 100.0 mmol/L (98-107); Creatine Kinase 52.0 U/L (30-223); Creatinine Clr Calc Pharmacy 92.4 ml/min; Globulin 2.4 gm/dl (2.5-4.0); Glucose 141.0 mg/dl (70-99(Fasting)); Potassium 3.5 mmol/L (3.5-5.1); Sodium 133.0 mmol/L (136-145); Total Protein 5.3 gm/dl (6.0-8.3)
[2025-06-26] MEDS: POTASSIUM CHLORIDE CRTAB 20 MEQ TABCR PO SCH (08:05)
[2025-06-26] MEDS: HYDROCORTISONE 10 MG TAB PO SCH ×2 (08:12→13:23)
[2025-06-26] MEDS ORDERED: HYDROCORTISONE SOD 25 MG in SYRINGE 0 ML IV SCH (09:00)
[2025-06-26] MEDS: BUMETANIDE 1 MG in SYRINGE 0 ML IV ONE ×2 (10:18→19:42)
--- NOTE | 2025-06-26 12:17 | Hospitalist Progress Note ---
Date of Service June 26, 2025 Assessment & Plan (1) Multiple myeloma: (2) Transaminitis: (3) Septic shock: (4) Cellulitis: (5) JOSE (acute kidney injury): (6) Encephalopathy: (7) Syncope: (8) Hypokalemia: (9) Witnessed episode of apnea: (10) Acute respiratory failure with hypoxia: (11) Hypothyroidism: (12) Type 2 diabetes mellitus: Plan 59 year old male with multiple myeloma on Revlimid/dexamethasone presents to the ER with right lower extremity cellulitis and fever #Septic shock / Cellulitis / Strep Bacteremia Source = cellulitis on right lower extremity. CT without concern for necrotizing fasciitis, Streptococcus dysgalactiae on blood culture, sensitivities now available, pending ID consult as BALANCE trial suggests 7 days of antibiotics sufficient although I am concerned we do not have good source control and the majority of infections in that trial were urine source and 23% of patients in the 7 day group actually had over 7 days of antibiotics Continue ceftriaxone, metronidazole discontinued BP increased, will reduce hydrocortisone to 25+10mg, stop tomorrow Immunocompromised with multiple myeloma on Revlimid - discontinue Revlimid For pain will give acetaminophen 1g IV TID and oxycodone 5-10mg PO as needed for pain Blistering causing excessive pain, discussed increased risk of draining with needle but given excessive pain he wished to go ahead and do this therefore Betadine used to clean skin and 18G needle inserted into two largest blisters, legs will be wrapped and wound care consulted for tomorrow. Serous fluid, not pus filled. #Type 2 diabetes mellitus - newly diagnosed with HbA1C 7.8 Insulin while on steroids as inpatient but can likely be switched on discharge, probably good ability to go into remission with weight loss although with ongoing steroids for myeloma this will be more difficult Appreciate pharmacy glycemic control with insulin dosing - discussed over the phone regarding weaning hydrocortisone this morning #JOSE Patient reports baseline Cr around 1. Continue to monitor with AM labs. Currently clinically hypervolemic #Hypertension Restart carvedilol at 3.125mg PO BID to help with rebound tachycardia, restart bumex at 1mg IV and monitor BP to help with lower extremity swelling #Syncope Suspect due to shock above, TTE reassuring, increased right systolic pressure likely due to obesity restrictive lung disease, consider PFTs as outpatient #Multiple Myeloma Holding dexamethasone and Revlimid Ok to continue allopurinol #Acute respiratory failure with hypoxia / Witnessed apneic episodes (in the ER) VBG on admission without significant hypercapnia Hypoxia now resolved and on room air Continue CPAP while sleeping/napping, will need sleep apnea testing as outpatient #Hypothyroidism TSH 1.525 Continue levothyroxine #Hypokalemia / hypomagnesemia Replacement as needed, likely secondary to bumetanide and redistribution of previously prescribed potassium #Hyponatremia Resolving, no treatment required VTE Prophylaxis - heparin 5000 units SQ q8h Disposition - continue on med/surg Admission and Anticipated Discharge Date Admission Date: June 23, 2025 Subjective Severe blistering of right lower extremity with increasing swelling of both legs R > L. No fever or chills. Physical Exam 2 Constitutional: well developed and + morbidly obese; no acute distress Respiratory: normal respiratory effort, lungs clear to auscultation Cardiovascular: Rate/Rhythm: regular rate and regular rhythm Extremities: + pedal edema (3+ bilateral pitting edema R > L) Gastrointestinal (Abdomen): normal bowel sounds, soft, nontender, no hepatosplenomegaly Skin: Significant blistering of right lower extremity as per pictures above Neurologic: moves all extremities and awake; not confused Results & Data Results & Data Vital Signs (Past 12 Hours) Vital Signs Temp Pulse Resp BP Pulse Ox O2 Del Method 06/26/25 10:18 147/94 H 06/26/25 07:20 37.1 C 77 18 163/91 H 96 Room Air Laboratory Results Abnormal lab results 06/25/25 06/25/25 06/26/25 Range/Units 16:49 20:19 05:31 Sodium 133 L (136-145) mmol/L BUN 29 H (6-23) mg/dl Creatinine 1.46 H (0.6-1.4) mg/dl Glucose 141 H (70-99(Fasting)) mg/dl POC Glucose 153 H 119 H (70-99) mg/dl Calcium 8.1 L (8.6-10.3) mg/dl AST 11 L (13-39) U/L Total Protein 5.3 L (6.0-8.3) gm/dl Albumin 2.9 L (3.4-5.0) gm/dl Globulin 2.4 L (2.5-4.0) gm/dl 06/26/25 06/26/25 Range/Units 07:38 11:33 Sodium (136-145) mmol/L BUN (6-23) mg/dl Creatinine (0.6-1.4) mg/dl Glucose (70-99(Fasting)) mg/dl POC Glucose 123 H 115 H (70-99) mg/dl Calcium (8.6-10.3) mg/dl AST (13-39) U/L Total Protein (6.0-8.3) gm/dl Albumin (3.4-5.0) gm/dl Globulin (2.5-4.0) gm/dl PG Care Time/CCT Total # of Minutes Spent Total Time Spent with Patient: Total time spent is greater than 50% in coordination of care (as documented) at patient's floor/unit and/or counseling patient: Coding Level of Care Code 18833 SUB INP/OBS CARE 3/50MIN Diagnoses Multiple myeloma C90.00 Transaminitis R74.01 Septic shock A41.9; R65.21 Cellulitis L03.90 JOSE (acute kidney injury) N17.9 Encephalopathy G93.40 Syncope R55 Hypokalemia E87.6 Witnessed episode of apnea R06.81 Acute respiratory failure with hypoxia J96.01 Hypothyroidism E03.9 Type 2 diabetes mellitus E11.9
[2025-06-26] MEDS: POTASSIUM CHLORIDE CRTAB 20 MEQ TABCR PO STA (19:42)
[2025-06-27 10:38] LABS: Hematocrit (blood only) 34.7 % (42.0-52.0); Hemoglobin 11.9 g/dl (14.0-18.0); Immature Granulocytes # (auto) 0.12 K/uL (0.01-0.20); Immature Granulocytes % (auto) 2.1 %; Mean Corpuscular Hemoglobin 30.8 pg (25.0-34.0); Mean Corpuscular Volume 89.9 fL (80.0-100.0); Platelet Count 118 K/uL (130-400); RDW Standard Deviation 56.5 fL (36.4-46.3); Red Blood Count 3.86 M/uL (4.70-6.10); White Blood Count 5.77 K/ul (4.8-10.8)
--- NOTE | 2025-06-27 10:38 | Pharmacy Report ---
Pharmacy Glycemic Short Note 2 - Date of Service June 27, 2025 - Glycemic Short BSG Results (Last 24 hours): 06/26/25 06/26/25 06/26/25 11:33 16:38 20:11 POC Glucose 115 H 133 H 153 H 06/27/25 07:46 POC Glucose 145 H OUTPATIENT ANTIDIABETIC REGIMEN: * N/A * A1c 7.8% 06/24/25 ASSESSMENT: 06/27 * Patient received total of 53 units of insulin yesterday, of which 20 units were basal * Fasting BSG 145 mg/dL - will continue Lantus scale * No change to CF/CR 06/24 * Patient admitted septic shock- cellulitis with strep bacteremia. * BSG on labs overnight 378 mg/dL-- on levophed which is being titrated off. On hydrocortisone 50 mg q6h * Insulin infusion initially deferred d/t Novolog dose administered prior to consult. Novolog parameters were adjusted to weight stress 2- actual body weight * BSG down to 190 mg/dL on 0800 check. Breakfast ordered * Will continue with basal/bolus for now as pressors are being weaned off and BSG has improved. * Will initiate weight stress 2 basal- adjusted body weight for now. Monitor trend * Lower threshold to begin insulin infusion PLAN FOR INPATIENT GLYCEMIC CONTROL: * Hold outpatient oral diabetes medications * Basal insulin * Lantus 0-20 units SQ BID * Bolus insulin * NovoLog per scale ACHS or Q6hrs while NPO * Goal Range: Low 110 mg/dL - High 140 mg/dL * Correction Factor: 20 mg/dL/unit * Nutritional / Prandial insulin per carb ratio of 1 unit per 6 grams CHO consumed
[2025-06-27 10:53] LABS: Anion Gap 7.0 (3-11); Blood Urea Nitrogen 34.0 mg/dl (6-23); Calcium 8.8 mg/dl (8.6-10.3); Carbon Dioxide 27.0 mmol/L (21-32); Chloride 98.0 mmol/L (98-107); Creatinine Clr Calc Pharmacy 86.4 ml/min; Glucose 132.0 mg/dl (70-99(Fasting)); Potassium 3.6 mmol/L (3.5-5.1); Sodium 132.0 mmol/L (136-145)
--- NOTE | 2025-06-27 11:03 | Infectious Disease Consult ---
Date of Consultation June 27, 2025 Assessment & Plan (1) Cellulitis of right lower extremity: (2) Streptococcal bacteremia: Plan Problems: #RLE cellulitis #Strep dysgalactiae bacteremia #MM on Revlimid and dex Micro: 06/23 BCx x2: Strep dysgalactiae in 3/4 bottles (S penicillin, amp, ceftraixone, levo, tetra) Abx: Ceftriaxone 06/24 - present Metronidazole 06/24 - 06/26 Zosyn 06/23 - 06/24 Cefepime 06/23 Dapto 06/23 59 yo M with MM (on Revlimid and dexamethasone) who presented on 06/23 with RLE pain and erythema, found to have RLE cellulitis and Strep dysgalactiae bacteremia. He reports an initial injury with hitting his leg with a rock 2 days prior. His symptoms have been getting progressively worse, with fevers and chills. While a friend drove him to the ED, pt had chest pain and shortness of breath with two syncopal episodes. On presentation, pt was afebrile, VSS. Noted on exam to have erythema and swelling of the RLE with a small scabbed area on the lateral side. Labs showed WBC 3.09, Cr 1.52, lactate 4.2, AST 55, ALT 68, procal 0.96. CTA chest with no PE, no consolidation. XR R tib/fib with no fractures or osteomyelitis, with RLE soft tissue swelling. RLE venous doppler with no DVT. He was started on dapto and cefepime in the ED, and admitted to the ICU for hypotension requiring pressors. Cefepime switched to Zosyn. Started on stress dose steroids. CT RLE without contrast showed subcutaneous edema without further evidence of suggest nec fasc. BCx growing Strep dysgalactiae in 3/4 bottles. Antibiotics now narrowed to ceftriaxone. Weaned off pressors on 8 AM. TTE with no vegetations. Recommendations: -Ordered repeat blood cultures -Narrowed from ceftriaxone to cefazolin 2 g IV q8h -Elevation of RLE to help with erythema, edema Will continue to follow Consultation Information This patient recommendation is based on a telemedicine consult request which was completed asynchronously through chart review and information provided by the primary physician. The patient was not seen or examined today. The evaluation is consultative in nature and all patient care and treatment decisions can either be accepted or rejected by the patient's primary hospital-based treating physician using their own independent medical judgment for their patient. Inseamer contact information: Please call [facility] . (Phone Number For Physician Use Only) An e-consult was performed because the video cart was not working. Time Spent Reviewing Chart: 31+ minutes History of Present Illness Reason for Consultation: Strep bacteremia Attending Physician: gL Hansen MD History of Present Illness 59 yo M with MM (on Revlimid and dexamethasone) who presented on 06/23 with RLE pain and erythema. He reports an initial injury with hitting his leg with a rock 2 days prior. His symptoms have been getting progressively worse, with fevers and chills. While a friend drove him to the ED, pt had chest pain and shortness of breath with two syncopal episodes. On presentation, pt was afebrile, VSS. Noted on exam to have erythema and swelling of the RLE with a small scabbed area on the lateral side. Labs showed WBC 3.09, Cr 1.52, lactate 4.2, AST 55, ALT 68, procal 0.96. CXR with no acute process. CTA chest with no PE, no consolidation. XR R tib/fib with no fractures or osteomyelitis, with RLE soft tissue swelling. RLE venous doppler with no DVT. He was started on dapto and cefepime in the ED, and admitted to the ICU for hypotension requiring Levophed, vasopressin. Cefepime switched to Zosyn. Started on stress dose steroids. CT RLE without contrast showed subcutaneous edema without further evidence of suggest nec fasc. BCx growing Strep dysgalactiae in 3/4 bottles. Antibiotics now narrowed to ceftriaxone. Weaned off pressors on 88 AM. TTE with no vegetations. Allergies Allergy/AdvReac Type Severity Reaction Status Date / Time doxycycline Allergy Verified 06/23/25 14:32 Home Medications Medication Instructions Recorded Confirmed Type allopurinol 100 mg tablet 100 mg PO DAILY 06/23/25 06/23/25 History bumetanide 2 mg tablet 2 mg PO BID 06/23/25 06/23/25 History carvedilol 12.5 mg tablet (Coreg) 12.5 mg PO BID 06/23/25 06/23/25 History dexamethasone 4 mg tablet 40 mg PO WK 06/23/25 06/23/25 History levothyroxine 50 mcg tablet 50 mcg PO DAILY 06/23/25 06/23/25 History escitalopram oxalate 10 mg tablet 10 mg PO QAM 06/24/25 06/24/25 History lenalidomide 25 mg capsule See Rx Instructions .Route .COMPLEX 06/24/25 06/24/25 History levocetirizine 5 mg tablet 10 mg PO DAILY 06/24/25 06/24/25 History montelukast 10 mg tablet 10 mg PO HS 06/24/25 06/24/25 History Patient History Medical History (Updated 06/27/25 @ 11:18 by Jessica Sabillon MD) Hypothyroidism Multiple myeloma Social History Smoking Status: Current every day smoker Tobacco Type: Cigarettes Cigarettes Per Day: 10; Second Hand Exposure: No; Do You Dip or Chew Tobacco: No; Hx Alcohol Use: No Hx Substance Use: No Preferred Language: Tajik Communication Ability: Effective Slot Floorperson Required: No Beliefs That Will Affect Care: None Current Living Situation: Alone Feels Safe at Home: Yes Assistive Devices: None Review of System pt not seen Physical Exam Physical Exam: pt not seen Results & Data Vital Signs (Past 12 Hours) Vital Signs Temp Pulse Pulse Resp BP Pulse Ox O2 Del Method 06/27/25 09:53 Room Air 06/27/25 07:30 37.1 C 75 17 143/82 H 96 Room Air 06/26/25 22:55 64 12 98 FiO2 06/27/25 09:53 06/27/25 07:30 06/26/25 22:55 30 Laboratory Results Short CBC 06/27/25 Range/Units 10:03 WBC 5.77 (4.8-10.8) K/ul Hgb 11.9 L (14.0-18.0) g/dl Hct 34.7 L (42.0-52.0) % Plt Count 118 L (130-400) K/uL BMP 06/27/25 10:03 Sodium 132 L Potassium 3.6 Chloride 98 Carbon Dioxide 27 BUN 34 H Creatinine 1.56 H Glucose 132 H Calcium 8.8 Medications Administered Current Inpatient Medications Acetaminophen (Acetaminophen 500 Mg Tab) 1,000 mg PO TID [facility] Stop: 07/25/25 08:59 Last Admin: 06/27/25 09:14 Dose: 1,000 mg Allopurinol (Allopurinol 100 Mg Tab) 100 mg PO DAILY [facility] Stop: 07/25/25 08:59 Last Admin: 06/27/25 09:15 Dose: 100 mg Carvedilol (Carvedilol 3.125 Mg Tab) 3.125 mg PO BIDM [facility] Stop: 07/26/25 07:59 Last Admin: 06/27/25 09:13 Dose: 3.125 mg Cetirizine HCl (Cetirizine Hcl 10 Mg Tablet) 10 mg PO DAILY [facility] Stop: 07/25/25 08:59 Last Admin: 06/27/25 09:15 Dose: 10 mg Dextrose (Dextrose 50% 50 Ml Syringe) 25 - 50 ml IV UD PRN; Protocol PRN Reason: Hypoglycemia Protocol Stop: 07/23/25 20:22 Escitalopram Oxalate (Escitalopram Oxalate 10 Mg Tab) 10 mg PO QAM [facility] Stop: 07/25/25 08:59 Last Admin: 06/27/25 09:15 Dose: 10 mg Glucagon (Glucagon For Inj 1 Mg Vial) 1 mg SQ UD PRN; Protocol PRN Reason: Hypoglycemia Protocol Stop: 07/23/25 20:22 Glucose (Glucose 40% Gel 15 Gm Tube) 15 - 30 gm PO UD PRN; Protocol PRN Reason: Hypoglycemia Protocol Stop: 07/23/25 20:22 Glucose (Glucose 10 Tab/Tube) 4 - 8 tab PO UD PRN; Protocol PRN Reason: Hypoglycemia Protocol Stop: 07/23/25 20:22 Heparin Sodium (Beef Lung) (Heparin 10 Unit/Ml 5 Ml Flush) 5 ml FLUSH PRN PRN PRN Reason: Flush Stop: 07/23/25 19:24 Heparin Sodium (Porcine) (Heparin Sod 5,000 Unit/0.5 Ml Vial) 5,000 units SQ Q8 [facility] Stop: 07/24/25 13:59 Last Admin: 06/27/25 05:34 Dose: 5,000 units Ceftriaxone Sodium (Rocephin) 2,000 mg in 50 mls @ 100 mls/hr IV Q24H [facility] Stop: 07/08/25 11:59 Last Infusion: 06/26/25 14:08 Dose: Infused Bumetanide 2 mg/ Syringe 8 mls @ 4 mls/min IV ONE ONE Stop: 06/27/25 11:09 Insulin Aspart (Insulin Aspart Per Unit Charge) 0 units SC ACHS [facility] Stop: 07/24/25 07:59 Last Admin: 06/27/25 09:20 Dose: 16 units Insulin Glargine (Lantus Per Unit Charge) 0 units SC BID [facility]; Protocol Stop: 07/25/25 08:59 Last Admin: 06/27/25 09:20 Dose: 10 units Levothyroxine Sodium (Levothyroxine Sodium 50 Mcg Tablet) 50 mcg PO DAILYBB [facility] Stop: 07/25/25 06:29 Last Admin: 06/27/25 05:34 Dose: 50 mcg Miscellaneous (Carbohydrates For Hypoglycemia ) 15 - 30 gm PO UD PRN PRN Reason: Hypoglycemia Protocol Stop: 07/23/25 20:22 Miscellaneous (Remove Nicoderm Patch) 1 each N/A DAILY@0859 [facility] Stop: 07/25/25 08:58 Last Admin: 06/27/25 09:15 Dose: 1 each Miscellaneous Information (Pharmacy Glycemic Mgmt Consult) 1 each N/A UD PRN PRN Reason: Consult Stop: 07/24/25 05:18 Montelukast Sodium (Montelukast Sodium 10 Mg Tablet) 10 mg PO HS [facility] Stop: 07/24/25 20:59 Last Admin: 06/26/25 20:19 Dose: 10 mg Nicotine (Nicotine 14 Mg/24 Hr Patch) 1 patch TD QAM [facility] Stop: 07/24/25 20:19 Last Admin: 06/27/25 09:15 Dose: 1 patch Ondansetron HCl (Ondansetron Inj 2 Mg/Ml 2 Ml Vial) 4 mg IV Q6H PRN PRN Reason: Nausea And Vomiting Stop: 07/23/25 19:30 Last Admin: 06/23/25 19:46 Dose: 4 mg Oxycodone HCl (Oxycodone Hcl Ir 5 Mg Tab (Immediate Release)) 5 mg PO Q4H PRN PRN Reason: MODERATE Pain (4,5,6) & Pre PT Stop: 07/09/25 07:18 Last Admin: 06/27/25 09:14 Dose: 5 mg Oxycodone HCl (Oxycodone Hcl Ir 5 Mg Tab (Immediate Release)) 10 mg PO Q4H PRN PRN Reason: SEVERE Pain (7,8,9,10) Stop: 07/09/25 07:18 Last Admin: 06/26/25 08:16 Dose: 10 mg Potassium Chloride (Potassium Chloride Crtab 20 Meq Tabcr) 20 meq PO QAM [facility] Stop: 07/26/25 08:59 Last Admin: 06/27/25 09:14 Dose: 20 meq
[2025-06-27] MEDS: BUMETANIDE 2 MG in SYRINGE 0 ML IV ONE ×2 (12:00→21:10)
--- NOTE | 2025-06-27 19:43 | Hospitalist Progress Note ---
Date of Service June 27, 2025 Assessment & Plan (1) Multiple myeloma: (2) Transaminitis: (3) Septic shock: (4) Cellulitis: (5) JOSE (acute kidney injury): (6) Encephalopathy: (7) Syncope: (8) Hypokalemia: (9) Witnessed episode of apnea: (10) Acute respiratory failure with hypoxia: (11) Hypothyroidism: (12) Type 2 diabetes mellitus: Plan 59 year old male with multiple myeloma on Revlimid/dexamethasone presents to the ER with right lower extremity cellulitis and fever #Septic shock / Cellulitis / Strep Bacteremia Source = cellulitis on right lower extremity. CT without concern for necrotizing fasciitis, Streptococcus dysgalactiae on blood culture, sensitivities now available Appreciate ID consult, oral regimen pending repeat blood culture results, antibiotics narrowed to cefazolin Immunocompromised with multiple myeloma on Revlimid - discontinue Revlimid For pain will give acetaminophen 1g IV TID and oxycodone 5-10mg PO as needed for pain Now off hydrocortisone which should hopefully improve his glucose levels and fluid retention #Type 2 diabetes mellitus - newly diagnosed with HbA1C 7.8 this admission Appreciate pharmacy glycemic control with insulin dosing ?GLP-1 on discharge #JOSE Patient reports baseline Cr around 1. Continue to monitor with AM labs. Currently clinically hypervolemic #Hypertension Continue on carvedilol 3.125mg PO BID - he reports sometimes missing doses of this at home due to hypotension so may not need his full dose on discharge Increase Bumex back to his 2mg BID (using IV rather than PO), will increase again tomorrow if no significant increase in urine output and improvement in leg swelling #Syncope Suspect due to shock above, TTE reassuring #Multiple Myeloma Holding dexamethasone and Revlimid Ok to continue allopurinol #Acute respiratory failure with hypoxia / Witnessed apneic episodes (in the ER) VBG on admission without significant hypercapnia Hypoxia now resolved and on room air Continue CPAP while sleeping/napping, will need sleep apnea testing as outpatient #Hypothyroidism TSH 1.525 Continue levothyroxine #Hypokalemia / hypomagnesemia Replacement as needed, likely secondary to bumetanide and redistribution of previously prescribed potassium #Hyponatremia Resolving, no treatment required VTE Prophylaxis - heparin 5000 units SQ q8h Disposition - continue on med/surg Admission and Anticipated Discharge Date Admission Date: June 23, 2025 Subjective Reports no significant change in leg swelling bilaterally. No significant change in leg erythema and blisters somewhat filled back up with serous fluid but still much improved from yesterday. Physical Exam Constitutional: well developed and + morbidly obese; no acute distress Respiratory: normal respiratory effort, lungs clear to auscultation Cardiovascular: Rate/Rhythm: regular rate and regular rhythm Extremities: + pedal edema (3+ bilateral pitting edema R > L) Gastrointestinal (Abdomen): Inspection/Auscultation: + abdomen distended Percussion/Palpation: abdomen soft; abdomen nontender, no guarding and abdomen not rigid Skin: erythema and swelling from ankle to knee right leg, similar in appearance to yesterday with serous fluid filled blisters Neurologic: moves all extremities and awake; not confused Psychiatric: Orientation: alert and oriented x 3 Results & Data Results & Data Vital Signs (Past 12 Hours) Vital Signs Temp Pulse Pulse Resp BP Pulse Ox O2 Del Method 06/27/25 15:12 36.6 C 80 18 139/81 96 Room Air 06/27/25 11:11 36.8 C 77 17 134/87 96 Room Air 06/27/25 09:53 Room Air PG Care Time/CCT Total # of Minutes Spent Total Time Spent with Patient: Total time spent is greater than 50% in coordination of care (as documented) at patient's floor/unit and/or counseling patient: Coding Level of Care Code 64259 SUB INP/OBS CARE 2/35MIN Diagnoses Multiple myeloma C90.00 Transaminitis R74.01 Septic shock A41.9; R65.21 Cellulitis L03.90 JOSE (acute kidney injury) N17.9 Encephalopathy G93.40 Syncope R55 Hypokalemia E87.6 Witnessed episode of apnea R06.81 Acute respiratory failure with hypoxia J96.01 Hypothyroidism E03.9 Type 2 diabetes mellitus E11.9
[2025-06-28 08:17] LABS: Anion Gap 7.0 (3-11); Blood Urea Nitrogen 36.0 mg/dl (6-23); Calcium 8.1 mg/dl (8.6-10.3); Carbon Dioxide 26.0 mmol/L (21-32); Chloride 100.0 mmol/L (98-107); Creatinine Clr Calc Pharmacy 84.8 ml/min; Glucose 116.0 mg/dl (70-99(Fasting)); Magnesium 1.9 mg/dl (1.7-2.4); Potassium 3.9 mmol/L (3.5-5.1); Sodium 133.0 mmol/L (136-145)
[2025-06-28] MEDS: LANTUS PER UNIT CHARGE SC SCH (08:55)
[2025-06-28] MEDS: BUMETANIDE 4 MG in SYRINGE 0 ML IV ONE ×2 (11:16→18:03)
--- NOTE | 2025-06-28 11:51 | Infectious Disease Progress Nt ---
Date of Service June 28, 2025 Assessment & Plan (1) Cellulitis of right lower extremity: (2) Streptococcal bacteremia: Plan Problems: #RLE cellulitis #Strep dysgalactiae bacteremia #MM on Revlimid and dex Micro: 06/27 BCx x2: pending 06/23 BCx x2: Strep dysgalactiae in 3/4 bottles (S penicillin, amp, ceftriaxone, levo, tetra) Abx: Cefazolin 06/27 - 06/28 Ceftriaxone 06/24 - 06/26 Metronidazole 06/24 - 06/26 Zosyn 06/23 - 06/24 Cefepime 06/23 Dapto 06/23 59 yo M with MM (on Revlimid and dexamethasone) who presented on 06/23 with RLE pain and erythema, found to have RLE cellulitis and Strep dysgalactiae bacteremia. He reports an initial injury with hitting his leg with a rock 2 days prior. His symptoms have been getting progressively worse, with fevers and chills. While a friend drove him to the ED, pt had chest pain and shortness of breath with two syncopal episodes. On presentation, pt was afebrile, VSS. Noted on exam to have erythema and swelling of the RLE with a small scabbed area on the lateral side. Labs showed WBC 3.09, Cr 1.52, lactate 4.2, AST 55, ALT 68, procal 0.96. CTA chest with no PE, no consolidation. XR R tib/fib with no fractures or osteomyelitis, with RLE soft tissue swelling. RLE venous doppler with no DVT. He was started on dapto and cefepime in the ED, and admitted to the ICU for hypotension requiring pressors. Cefepime switched to Zosyn. Started on stress dose steroids. CT RLE without contrast showed subcutaneous edema without further evidence of suggest nec fasc. BCx growing Strep dysgalactiae in 3/4 bottles. Antibiotics now narrowed to ceftriaxone. Weaned off pressors on 06/24 AM. TTE with no vegetations. Narrowed to cefazolin on 06/27. However, although pt remains afebrile and stable, no improvement in RLE erythema, swelling. Procalcitonin has gone up from 0.96 on admission, to 4.73 on 06/27, 3.18 on 06/28. Recommendations: -Given lack of improvement, will rebroaden antibiotics to daptomycin and Zosyn -Follow-up repeat blood cultures from 06/27 -Elevation of RLE to help with erythema, edema Will continue to follow. Discussed with hospitalist. Admission and Anticipated Discharge Date Admission Date: June 23, 2025 Subjective This patient recommendation is based on a telemedicine consult request which was completed asynchronously through chart review and information provided by the primary physician. The patient was not seen or examined today. The evaluation is consultative in nature and all patient care and treatment decisions can either be accepted or rejected by the patient's primary hospital-based treating physician using their own independent medical judgment for their patient. Time Spent Reviewing Chart: 11 - 20 minutes No improvement in RLE Remains afebrile without leukocytosis Results & Data Vital Signs (Past 12 Hours) Vital Signs Temp Pulse Resp BP Pulse Ox O2 Del Method 06/28/25 10:57 Room Air 06/28/25 07:40 36.6 C 81 20 126/78 97 Room Air Laboratory Results BMP 06/28/25 07:36 Sodium 133 L Potassium 3.9 Chloride 100 Carbon Dioxide 26 BUN 36 H Creatinine 1.59 H Glucose 116 H Calcium 8.1 L Medications Administered Current Inpatient Medications Acetaminophen (Acetaminophen 500 Mg Tab) 1,000 mg PO TID [facility] Stop: 07/25/25 08:59 Last Admin: 06/28/25 08:40 Dose: 1,000 mg Allopurinol (Allopurinol 100 Mg Tab) 100 mg PO DAILY [facility] Stop: 07/25/25 08:59 Last Admin: 06/28/25 08:40 Dose: 100 mg Carvedilol (Carvedilol 3.125 Mg Tab) 3.125 mg PO BIDM [facility] Stop: 07/26/25 07:59 Last Admin: 06/28/25 08:39 Dose: 3.125 mg Cetirizine HCl (Cetirizine Hcl 10 Mg Tablet) 10 mg PO DAILY [facility] Stop: 07/25/25 08:59 Last Admin: 06/28/25 08:40 Dose: 10 mg Dextrose (Dextrose 50% 50 Ml Syringe) 25 - 50 ml IV UD PRN; Protocol PRN Reason: Hypoglycemia Protocol Stop: 07/23/25 20:22 Escitalopram Oxalate (Escitalopram Oxalate 10 Mg Tab) 10 mg PO QAM [facility] Stop: 07/25/25 08:59 Last Admin: 06/28/25 08:40 Dose: 10 mg Glucagon (Glucagon For Inj 1 Mg Vial) 1 mg SQ UD PRN; Protocol PRN Reason: Hypoglycemia Protocol Stop: 07/23/25 20:22 Glucose (Glucose 40% Gel 15 Gm Tube) 15 - 30 gm PO UD PRN; Protocol PRN Reason: Hypoglycemia Protocol Stop: 07/23/25 20:22 Glucose (Glucose 10 Tab/Tube) 4 - 8 tab PO UD PRN; Protocol PRN Reason: Hypoglycemia Protocol Stop: 07/23/25 20:22 Heparin Sodium (Beef Lung) (Heparin 10 Unit/Ml 5 Ml Flush) 5 ml FLUSH PRN PRN PRN Reason: Flush Stop: 07/23/25 19:24 Heparin Sodium (Porcine) (Heparin Sod 5,000 Unit/0.5 Ml Vial) 5,000 units SQ Q8 [facility] Stop: 07/24/25 13:59 Last Admin: 06/28/25 05:43 Dose: 5,000 units Cefazolin Sodium (Ancef 2000mg) 2,000 mg in 15 mls @ 3.75 mls/min IV Q8H [facility] Stop: 07/11/25 12:59 Last Admin: 06/28/25 05:44 Dose: 3.75 mls/min Insulin Aspart (Insulin Aspart Per Unit Charge) 0 units SC ACHS [facility] Stop: 07/24/25 07:59 Last Admin: 06/28/25 08:55 Dose: 13 units Insulin Glargine (Lantus Per Unit Charge) 10 units SC DAILY [facility] Stop: 07/28/25 08:59 Last Admin: 06/28/25 08:55 Dose: 10 units Levothyroxine Sodium (Levothyroxine Sodium 50 Mcg Tablet) 50 mcg PO DAILYBB [facility] Stop: 07/25/25 06:29 Last Admin: 06/28/25 05:44 Dose: 50 mcg Miscellaneous (Carbohydrates For Hypoglycemia ) 15 - 30 gm PO UD PRN PRN Reason: Hypoglycemia Protocol Stop: 07/23/25 20:22 Miscellaneous (Remove Nicoderm Patch) 1 each N/A DAILY@0859 [facility] Stop: 07/25/25 08:58 Last Admin: 06/28/25 08:40 Dose: 1 each Miscellaneous Information (Pharmacy Glycemic Mgmt Consult) 1 each N/A UD PRN PRN Reason: Consult Stop: 07/24/25 05:18 Montelukast Sodium (Montelukast Sodium 10 Mg Tablet) 10 mg PO [facility] Stop: 07/24/25 20:59 Last Admin: 06/27/25 20:18 Dose: 10 mg Nicotine (Nicotine 14 Mg/24 Hr Patch) [address] [facility] Stop: 07/24/25 20:19 Last Admin: 06/28/25 08:39 Dose: 1 patch Ondansetron HCl (Ondansetron Inj 2 Mg/Ml 2 Ml Vial) 4 mg IV Q6H PRN PRN Reason: Nausea And Vomiting Stop: 07/23/25 19:30 Last Admin: 06/28/25 08:32 Dose: 4 mg Oxycodone HCl (Oxycodone Hcl Ir 5 Mg Tab (Immediate Release)) 5 mg PO Q4H PRN PRN Reason: MODERATE Pain (4,5,6) & Pre PT Stop: 07/09/25 07:18 Last Admin: 06/27/25 09:14 Dose: 5 mg Oxycodone HCl (Oxycodone Hcl Ir 5 Mg Tab (Immediate Release)) 10 mg PO Q4H PRN PRN Reason: SEVERE Pain (7,8,9,10) Stop: 07/09/25 07:18 Last Admin: 06/28/25 08:33 Dose: 10 mg Potassium Chloride (Potassium Chloride Crtab 20 Meq Tabcr) [facility] [place] Stop: 07/26/25 08:59 Last Admin: 06/28/25 08:39 Dose: 20 meq
[2025-06-28] MEDS: PIPERACILLIN/TAZOBACTAM 4.5 GM/100 ML BAG IV ONE (13:23)
[2025-06-28] MEDS: DAPTOmycin 700 MG in SYRINGE 0 ML IV SCH (13:23)
--- NOTE | 2025-06-28 14:45 | Podiatry Consultation ---
Date of Consultation June 28, 2025 Assessment & Plan (1) Streptococcal bacteremia: (2) Type 2 diabetes mellitus: (3) Cellulitis of right lower extremity: (4) Erysipelas of right lower extremity: Plan Cellulitis/erysipelas right lower extremity: -Soft tissue for culture right lateral leg. Culture swab of right medial ankle wound. Sent for culture and sensitivity -Debridement of nonviable/necrosing portion of wound of the medial and lateral leg as detailed below. More superficial bullous formation to the anterior aspect of the leg is left intact. -Dressing order: Dressed medial, anterior and lateral bolus portion of the leg with Xeroform to minimize adhesions followed by ABD pads and Sharron. Dressed the right lower extremity with [place] bandage from the base of the toes to the proximal leg. Change dressing twice daily and as needed. - Continue to elevate right lower extremity while at rest. Thank you for consulting podiatry to aid in the care of this patient. I will continue to follow his wound progress closely while he remains in house and recommend close follow-up with wound center following discharge. Patient lives around [facility] and would likely be better served with a wound center close to his home with probable need for weekly visits. Patient would benefit from either discharge for [facility] facility or discharged to home with home health care to aid in regular dressing changes. Surgical Excisional Debridement: Indication:Removal of necrotic tissue to promote healing Pre-op diagnosis: Medial and lateral right ankle wound Post-op diagnosis: Same Procedure: Surgical excisional debridement right medial and lateral wounds distal leg Surgeon: Damon Daniels DPM Anesthesia: None Bleeding:Minimal Disposition: Tolerated well Procedure: Informed consent obtained, Time Out taken. Patient understands and agrees to procedure. Excisional debridement was carried out of right leg consisting of epithelial, slough fibrotic and subcutaneous tissue was carried ou t utilizing a curette and 15 blade. Anesthesia-none. Patient tolerated the procedure well. Bleeding-minimal. Controlled with-direct pressure. Post- debridement measurements: Lateral 9 x 8 x 0.5 cm.Medial 10 x 9 x 0.5. A total of 162 cm2 were debrided. History of Present Illness Reason for Consultation: Right lower extremity cellulitis and large surface area wounds to the right lower extremity secondary to infection and significant edema Attending Physician: Lg Hansen MD History of Present Illness Patient admitted to [facility] 06/23/2025 with septic shock secondary to right lower extremity wounds and cellulitis. Evaluated with CT of the right lower extremity with no CT findings consistent with necrotizing fasciitis. He was initiated on empiric antibiotics in the emergency department including daptomycin and cefepime. Cefepime which was later switched to Zosyn on admission to the ICU. Patient is immunocompromised with multiple myeloma on Revlimid. History of right sided heart failure with chronic lower extremity edema. Hospitalist team has continued to uptitrate Bumex and attempt to reduce weeping from the right leg and lower extremity edema without significant progre ss. Wound care consulted today for dressing recommendations and subsequent request for podiatry consult for debridement of necrotic portions of the wound in hopes to minimize infectious source. Allergies Allergy/AdvReac Type Severity Reaction Status Date / Time doxycycline Allergy Verified 06/23/25 14:32 Home Medications Medication Instructions Recorded Confirmed Type allopurinol 100 mg tablet 100 mg PO DAILY 06/23/25 06/23/25 History bumetanide 2 mg tablet 2 mg PO BID 06/23/25 06/23/25 History carvedilol 12.5 mg tablet (Coreg) 12.5 mg PO BID 06/23/25 06/23/25 History dexamethasone 4 mg tablet 40 mg PO WK 06/23/25 06/23/25 History levothyroxine 50 mcg tablet 50 mcg PO DAILY 06/23/25 06/23/25 History escitalopram oxalate 10 mg tablet 10 mg PO QAM 06/24/25 06/24/25 History lenalidomide 25 mg capsule See Rx Instructions .Route .COMPLEX 06/24/25 06/24/25 History levocetirizine 5 mg tablet 10 mg PO DAILY 06/24/25 06/24/25 History montelukast 10 mg tablet 10 mg PO HS 06/24/25 06/24/25 History Patient History Medical History (Updated 06/28/25 @ 21:44 by Damon Daniels DPM) Hypothyroidism Multiple myeloma Social History Smoking Status: Current every day smoker Tobacco Type: Cigarettes Cigarettes Per Day: 10; Second Hand Exposure: No; Do You Dip or Chew Tobacco: No; Hx Alcohol Use: No Hx Substance Use: No Preferred Language: Syrian Communication Ability: Effective Mumps Developer Required: No Beliefs That Will Affect Care: None Current Living Situation: Alone Feels Safe at Home: Yes Assistive Devices: None Review of Systems Review of Systems: On exam today patient is resting comfortably in bedside chair with feet elevated on recliner. Denies pain to the right leg at baseline. Reports pain with pressure to the area of ulceration which in total measures 60 x 60 cm. Denies current nausea, vomiting, fever, chills. Physical Exam 2 Physical Exam: Right lower extremity: Erythema and edema extending from the dorsal foot to the proximal calf on the right lower extremity. Superficial bullous formation from the posterior lateral aspect of the right distal leg to the posterior medial aspect of the right medial leg. Significant bullous formation and destruction of the epidermis and dermis consistent with erysipelas. Is also noted that there is sparing of blister formation in the posterior leg which rests upon the bed and foot rest of patient's chair indicating that patient may benefit from circumferential compression of these areas to help improve skin quality and reduce edema within the superficial layers of tissue. Large circumferential area of nonviable loose and lacerated epithelium over the lateral distal aspect of the right leg which is deroofed exposing healthy underlying granular tissue with few small areas of extension into subcutaneous tissue which are likely areas of initial injury to the lateral leg. Medially there is a large fluid-filled bursa with destruction of the epidermis and dermis which is draining significant oc serous fluid which was also deroofed removing several layers of necrosis to epithelium exposing relatively healthy appearing mixed fibrotic and granular wound bed. Results & Data Vital Signs (Past 12 Hours) Vital Signs Temp Pulse Resp BP Pulse Ox O2 Del Method 06/28/25 10:57 Room Air 06/28/25 07:40 36.6 C 81 20 126/78 97 Room Air PG Care Time/CCT Total # of Minutes Spent Total Time Spent with Patient: Total time spent is greater than 50% in coordination of care (as documented) at patient's floor/unit and/or counseling patient: Coding Level of Care Code 34731 INT INP/OBS CARE 2/55MIN Diagnoses Streptococcal bacteremia R78.81; B95.5 Type 2 diabetes mellitus E11.9 Cellulitis of right lower extremity L03.115 Erysipelas of right lower extremity A46 CPT Codes DEBRIDE SUBCUTANEOUS TISSUE EA ADD 20 SQ CM - 23944 ([id number]) Debride Skin/Tissue - 61975 ([id number])
[2025-06-28] MEDS: PIPERACILLIN/TAZOBACTAM 4.5 GM/100 ML BAG IV SCH (17:23)
--- NOTE | 2025-06-28 17:39 | Hospitalist Progress Note ---
Date of Service June 28, 2025 Assessment & Plan (1) Multiple myeloma: (2) Transaminitis: (3) Septic shock: (4) Cellulitis: (5) JOSE (acute kidney injury): (6) Encephalopathy: (7) Syncope: (8) Hypokalemia: (9) Witnessed episode of apnea: (10) Acute respiratory failure with hypoxia: (11) Hypothyroidism: (12) Type 2 diabetes mellitus: Plan 59 year old male with multiple myeloma on Revlimid/dexamethasone presents to the ER with right lower extremity cellulitis and fever #Septic shock / Cellulitis / Strep dysgalactiae Bacteremia Source = cellulitis on right lower extremity. CT without concern for necrotizing fasciitis, Streptococcus dysgalactiae on blood culture, sensitivities now available Appreciate ID consult, oral regimen pending repeat blood culture results and improving edema - decreasing procalcitonin reassuring that we were on the right track with cefazolin but given worsening exam findings (that I mostly suspect are weeping purely from edema) antibiotics broadened 06/28 to daptomycin and Zosyn per ID Appreciate wound care consult - seen by Dr Daniels today for debridement and wound cultures sent Immunocompromised with multiple myeloma on Revlimid - discontinued For pain will give acetaminophen 1g PO TID and oxycodone 5-10mg PO as needed for pain Now off hydrocortisone which should hopefully improve his glucose levels and fluid retention #Right sided heart failure with bilateral leg swelling At baseline he takes Bumex 2mg PO BID to help with fluid in his legs which I suspect is truly from right heart failure due to obstructive sleep apnea and possible obesity hypoventilation with RVSP 40-50mmHg on echo when in shock Despite his negative fluid balance his leg has continued to look worse - suspect his intake has not been accurately recorded and will limit him to 1.5L/day He reports not urinating much but urine output recorded around 3200ml for 06/27 and 06/28 Uptitration of Bumex (1mg BID 06/26, 2mg BID 06/27) hasn't significantly helped swelling but we only just got back to his usual dosing 06/27. 06/28 will use metolazone 2.5mg PO + Bumex 4mg IV BID, if renal function is stable could consider a Bumex drip tomorrow He has not been using CPAP at night which I became aware of today and discussed with his the critical need for this to help with the fluid in his leg - he must use CPAP while sleeping or napping #Type 2 diabetes mellitus - newly diagnosed with HbA1C 7.8 this admission Appreciate pharmacy glycemic control with insulin dosing ?GLP-1 on discharge #JOSE Patient reports baseline Cr around 1. Continue to monitor with AM labs. Remains clinically hypervolemic #Hypertension Continue on carvedilol 3.125mg PO BID - he reports sometimes missing doses of this at home due to hypotension so may not need his full dose on discharge Increase Bumex back to his 2mg BID (using IV rather than PO), will increase again tomorrow if no significant increase in urine output and improvement in leg swelling #Syncope Suspect due to shock above, TTE reassuring #Multiple Myeloma Holding dexamethasone and Revlimid Ok to continue allopurinol #Acute respiratory failure with hypoxia / Witnessed apneic episodes (in the ER) VBG on admission without significant hypercapnia Hypoxia now resolved and on room air Continue CPAP while sleeping/napping, will need sleep apnea testing as outpatient #Hypothyroidism TSH 1.525 Continue levothyroxine #Hypokalemia / hypomagnesemia Replacement as needed, likely secondary to bumetanide and redistribution of previously prescribed potassium #Hyponatremia Mild, no treatment required VTE Prophylaxis - heparin 5000 units SQ q8h Disposition - continue on med/surg, clinically getting worse with significant edema not controlled Admission and Anticipated Discharge Date Admission Date: June 23, 2025 Subjective No change in leg swelling. Blisters filling up with serous fluid again. Shortness of breath on mild movement but not at rest. No fever or chills. Physical Exam Constitutional: well developed and + morbidly obese; no acute distress Respiratory: normal respiratory effort, lungs clear to auscultation Cardiovascular: Rate/Rhythm: regular rate and regular rhythm Extremities: + pedal edema (3+ bilateral pitting edema R > L) Gastrointestinal (Abdomen): Inspection/Auscultation: + abdomen distended Percussion/Palpation: abdomen soft; abdomen nontender, no guarding and abdomen not rigid Skin: erythema and swelling from ankle to knee right leg, similar in appearance to yesterday with serous fluid filled blisters Neurologic: moves all extremities and awake; not confused Psychiatric: Orientation: alert and oriented x 3 Results & Data Results & Data Vital Signs (Past 12 Hours) Vital Signs Temp Pulse Resp BP BP Pulse Ox O2 Del Method 08/12/25 14:50 36.6 C 79 16 122/79 95 Room Air 06/28/25 10:57 Room Air 06/28/25 07:40 36.6 C 81 20 126/78 97 Room Air PG Care Time/CCT Total # of Minutes Spent Total Time Spent with Patient: Total time spent is greater than 50% in coordination of care (as documented) at patient's floor/unit and/or counseling patient: Coding Level of Care Code 71296 SUB INP/OBS CARE 3/50MIN Diagnoses Multiple myeloma C90.00 Transaminitis R74.01 Septic shock A41.9; R65.21 Cellulitis L03.90 JOSE (acute kidney injury) N17.9 Encephalopathy G93.40 Syncope R55 Hypokalemia E87.6 Witnessed episode of apnea R06.81 Acute respiratory failure with hypoxia J96.01 Hypothyroidism E03.9 Type 2 diabetes mellitus E11.9
[2025-06-29 07:30] LABS: Hematocrit (blood only) 33.1 % (42.0-52.0); Hemoglobin 11.1 g/dl (14.0-18.0); Mean Corpuscular Hemoglobin 29.8 pg (25.0-34.0); Mean Corpuscular Volume 88.7 fL (80.0-100.0); Platelet Count 199 K/uL (130-400); RDW Standard Deviation 55.4 fL (36.4-46.3); Red Blood Count 3.73 M/uL (4.70-6.10); White Blood Count 8.63 K/ul (4.8-10.8)
[2025-06-29 07:46] LABS: Anion Gap 10.0 (3-11); Blood Urea Nitrogen 38.0 mg/dl (6-23); Calcium 8.0 mg/dl (8.6-10.3); Carbon Dioxide 26.0 mmol/L (21-32); Chloride 96.0 mmol/L (98-107); Creatinine Clr Calc Pharmacy 78.9 ml/min; Glucose 142.0 mg/dl (70-99(Fasting)); Potassium 3.2 mmol/L (3.5-5.1); Sodium 132.0 mmol/L (136-145)
[2025-06-29 07:55] LABS: ALC (manual) 0.78 K/uL (1.2-3.4); ANC (manual) 5.52 K/uL (1.4-6.5); Anisocytosis Present; Dohle Bodies 1+; Toxic Granulation 1+
--- NOTE | 2025-06-29 09:09 | Pharmacy Report ---
Pharmacy Glycemic Short Note 2 - Date of Service June 29, 2025 - Glycemic Short BSG Results (Last 24 hours): 06/28/25 06/28/25 06/28/25 11:35 16:30 20:27 Glucose POC Glucose 119 H 157 H 165 H 06/29/25 06/29/25 06:31 07:48 Glucose 142 H POC Glucose 139 H OUTPATIENT ANTIDIABETIC REGIMEN: * N/A * A1c 7.8% 06/24/25 ASSESSMENT: 06/29: * Terry received 38 units of insulin yesterday (10 were basal) * Fasting BSG this Am within goal range, continue current basal regimen. * No changes to NovoLog at this time. He is currently on daptomycin/Zosyn, no other glycemic stressors noted. 06/27 * Patient received total of 53 units of insulin yesterday, of which 20 units were basal * Fasting BSG 145 mg/dL - will continue Lantus scale * No change to CF/CR 06/24 * Patient admitted septic shock- cellulitis with strep bacteremia. * BSG on labs overnight 378 mg/dL-- on levophed which is being titrated off. On hydrocortisone 50 mg q6h * Insulin infusion initially deferred d/t Novolog dose administered prior to consult. Novolog parameters were adjusted to weight stress 2- actual body weight * BSG down to 190 mg/dL on 0800 check. Breakfast ordered * Will continue with basal/bolus for now as pressors are being weaned off and BSG has improved. * Will initiate weight stress 2 basal- adjusted body weight for now. Monitor trend * Lower threshold to begin insulin infusion PLAN FOR INPATIENT GLYCEMIC CONTROL: * Hold outpatient oral diabetes medications * Basal insulin * Lantus 10 units SQ daily * Bolus insulin * NovoLog per scale ACHS or Q6hrs while NPO * Goal Range: Low 110 mg/dL - High 140 mg/dL * Correction Factor: 20 mg/dL/unit * Nutritional / Prandial insulin per carb ratio of 1 unit per 6 grams CHO consumed
[2025-06-29] MEDS: POTASSIUM CHLORIDE 10 MEQ TABCR PO STA (09:12)
[2025-06-29] MEDS: BUMETANIDE 4 MG in SYRINGE 0 ML IV SCH (09:13)
[2025-06-29 09:37] LABS: Magnesium 1.8 mg/dl (1.7-2.4)
--- NOTE | 2025-06-29 10:39 | Infectious Disease Progress Nt ---
Date of Service June 29, 2025 Assessment & Plan (1) Cellulitis of right lower extremity: (2) Streptococcal bacteremia: Plan Problems: #RLE cellulitis #Strep dysgalactiae bacteremia #MM on Revlimid and dex Micro: 06/28 R ankle wound cx: pending. GS--few GPCs 06/28 R leg wound cx: pending. GS--no org 06/27 BCx x2: NGTD 06/23 BCx x2: Strep dysgalactiae in 3/4 bottles (S penicillin, amp, ceftriaxone, levo, tetra) Abx: Cefazolin 06/27 - 06/28 Ceftriaxone 06/24 - 06/26 Metronidazole 06/24 - 06/26 Zosyn 06/23 - 06/24, 06/28 - present Cefepime 06/23 Dapto 06/23, 06/28 - present 59 yo M with MM (on Revlimid and dexamethasone) who presented on 06/23 with RLE pain and erythema, found to have RLE cellulitis and Strep dysgalactiae bacteremia. He reports an initial injury with hitting his leg with a rock 2 days prior. His symptoms have been getting progressively worse, with fevers and chills. While a friend drove him to the ED, pt had chest pain and shortness of breath with two syncopal episodes. On presentation, pt was afebrile, VSS. Noted on exam to have erythema and swelling of the RLE with a small scabbed area on the lateral side. Labs showed WBC 3.09, Cr 1.52, lactate 4.2, AST 55, ALT 68, procal 0.96. CTA chest with no PE, no consolidation. XR R tib/fib with no fractures or osteomyelitis, with RLE soft tissue swelling. RLE venous doppler with no DVT. He was started on dapto and cefepime in the ED, and admitted to the ICU for hypotension requiring pressors. Cefepime switched to Zosyn. Started on stress dose steroids. CT RLE without contrast showed subcutaneous edema without further evidence of suggest nec fasc. BCx growing Strep dysgalactiae in 3/4 bottles. Antibiotics now narrowed to ceftriaxone. Weaned off pressors on 06/24 AM. TTE with no vegetations. Narrowed to cefazolin on 06/27. However, although pt remains afebrile and stable, no improvement in RLE erythema, swelling. Procalcitonin has gone up from 0.96 on admission, to 4.73 on 06/27, 3.18 on 06/28. Broadened antibiotics back to dapto and Zosyn on 06/28. Podiatry consulted and performed debridement of nonviable tissue, sent for culture. Recommendations: -Continue daptomycin and Zosyn -Follow-up 06/28 wound cultures -Elevation of RLE to help with erythema, edema Will continue to follow Admission and Anticipated Discharge Date Admission Date: June 23, 2025 Subjective This patient recommendation is based on a telemedicine consult request which was completed asynchronously through chart review and information provided by the primary physician. The patient was not seen or examined today. The evaluation is consultative in nature and all patient care and treatment decisions can either be accepted or rejected by the patient's primary hospital-based treating physician using their own independent medical judgment for their patient. An e-consult was performed as the video cart is nonfunctional. Time Spent Reviewing Chart: 11 - 20 minutes Afebrile without leukocytosis Podiatry consulted and took a culture swab of R medial ankle wound. Also performed debridement of nonviable/necrosing portion of wound Results & Data Vital Signs (Past 12 Hours) Vital Signs Temp Pulse Pulse Resp BP Pulse Ox O2 Del Method 06/29/25 07:46 36.9 C 81 20 110/69 95 Room Air 06/28/25 23:46 36.8 C 74 20 120/76 95 CPAP 06/28/25 22:46 88 18 98 FiO2 06/29/25 07:46 06/28/25 23:46 06/28/25 22:46 21 Laboratory Results Short CBC 06/29/25 Range/Units 06:31 WBC 8.63 (4.8-10.8) K/ul Hgb 11.1 L (14.0-18.0) g/dl Hct 33.1 L (42.0-52.0) % Plt Count 199 D (130-400) K/uL BMP 06/29/25 06:31 Sodium 132 L Potassium 3.2 L Chloride 96 L Carbon Dioxide 26 BUN 38 H Creatinine 1.67 H Glucose 142 H Calcium 8.0 L Medications Administered Current Inpatient Medications Acetaminophen (Acetaminophen 500 Mg Tab) 1,000 mg PO TID [facility] Stop: 07/25/25 08:59 Last Admin: 06/29/25 07:57 Dose: 1,000 mg Allopurinol (Allopurinol 100 Mg Tab) 100 mg PO DAILY [facility] Stop: 07/25/25 08:59 Last Admin: 06/29/25 07:57 Dose: 100 mg Carvedilol (Carvedilol 3.125 Mg Tab) 3.125 mg PO BIDM [facility] Stop: 07/26/25 07:59 Last Admin: 06/29/25 07:57 Dose: 3.125 mg Cetirizine HCl (Cetirizine Hcl 10 Mg Tablet) 10 mg PO DAILY [facility] Stop: 07/25/25 08:59 Last Admin: 06/29/25 07:58 Dose: 10 mg Dextrose (Dextrose 50% 50 Ml Syringe) 25 - 50 ml IV UD PRN; Protocol PRN Reason: Hypoglycemia Protocol Stop: 07/23/25 20:22 Escitalopram Oxalate (Escitalopram Oxalate 10 Mg Tab) 10 mg PO QAM [facility] Stop: 07/25/25 08:59 Last Admin: 06/29/25 07:58 Dose: 10 mg Glucagon (Glucagon For Inj 1 Mg Vial) 1 mg SQ UD PRN; Protocol PRN Reason: Hypoglycemia Protocol Stop: 07/23/25 20:22 Glucose (Glucose 40% Gel 15 Gm Tube) 15 - 30 gm PO UD PRN; Protocol PRN Reason: Hypoglycemia Protocol Stop: 07/23/25 20:22 Glucose (Glucose 10 Tab/Tube) 4 - 8 tab PO UD PRN; Protocol PRN Reason: Hypoglycemia Protocol Stop: 07/23/25 20:22 Heparin Sodium (Beef Lung) (Heparin 10 Unit/Ml 5 Ml Flush) 5 ml FLUSH PRN PRN PRN Reason: Flush Stop: 07/23/25 19:24 Heparin Sodium (Porcine) (Heparin Sod 5,000 Unit/0.5 Ml Vial) 5,000 units SQ Q8 [facility] Stop: 07/24/25 13:59 Last Admin: 06/29/25 05:47 Dose: 5,000 units Daptomycin 700 mg/ Syringe 14 mls @ 7 mls/min IV Q24H [facility]; Protocol Stop: 07/05/25 11:59 Last Admin: 06/28/25 13:23 Dose: 7 mls/min Piperacillin Sod/Tazobactam Sod (Zosyn) 4.5 gm in 100 mls @ 25 mls/hr IV Q8H [facility]; Protocol Stop: 07/05/25 17:59 Last Infusion: 06/29/25 10:27 Dose: 0 mls/hr Bumetanide 4 mg/ Syringe 16 mls @ 4 mls/min IV BID@0900,1700 [facility] Stop: 07/29/25 08:59 Last Admin: 06/29/25 09:13 Dose: 4 mls/min Insulin Aspart (Insulin Aspart Per Unit Charge) 0 units SC ACHS [facility] Stop: 07/24/25 07:59 Last Admin: 06/29/25 09:07 Dose: 10 units Insulin Glargine (Lantus Per Unit Charge) 10 units SC DAILY [facility] Stop: 07/28/25 08:59 Last Admin: 06/29/25 09:07 Dose: 10 units Levothyroxine Sodium (Levothyroxine Sodium 50 Mcg Tablet) 50 mcg PO DAILYBB [facility] Stop: 07/25/25 06:29 Last Admin: 06/29/25 05:47 Dose: 50 mcg Miscellaneous (Carbohydrates For Hypoglycemia ) 15 - 30 gm PO UD PRN PRN Reason: Hypoglycemia Protocol Stop: 07/23/25 20:22 Miscellaneous (Remove Nicoderm Patch) 1 each N/A DAILY@0859 [facility] Stop: 07/25/25 08:58 Last Admin: 06/29/25 09:12 Dose: 1 each Miscellaneous Information (Pharmacy Glycemic Mgmt Consult) 1 each N/A UD PRN PRN Reason: Consult Stop: 07/24/25 05:18 Montelukast Sodium (Montelukast Sodium 10 Mg Tablet) 10 mg PO HS [facility] Stop: 07/24/25 20:59 Last Admin: 06/28/25 20:57 Dose: 10 mg Nicotine (Nicotine 14 Mg/24 Hr Patch) 1 patch TD QAM [facility] Stop: 07/24/25 20:19 Last Admin: 06/29/25 09:13 Dose: 1 patch Ondansetron HCl (Ondansetron Inj 2 Mg/Ml 2 Ml Vial) 4 mg IV Q6H PRN PRN Reason: Nausea And Vomiting Stop: 07/23/25 19:30 Last Admin: 06/28/25 08:32 Dose: 4 mg Oxycodone HCl (Oxycodone Hcl Ir 5 Mg Tab (Immediate Release)) 5 mg PO Q4H PRN PRN Reason: MODERATE Pain (4,5,6) & Pre PT Stop: 07/09/25 07:18 Last Admin: 06/27/25 09:14 Dose: 5 mg Oxycodone HCl (Oxycodone Hcl Ir 5 Mg Tab (Immediate Release)) 10 mg PO Q4H PRN PRN Reason: SEVERE Pain (7,8,9,10) Stop: 07/09/25 07:18 Last Admin: 06/28/25 08:33 Dose: 10 mg Potassium Chloride (Potassium Chloride Crtab 20 Meq Tabcr) 20 meq PO BID [facility] Stop: 07/29/25 20:59
--- NOTE | 2025-06-29 18:44 | Hospitalist Progress Note ---
Date of Service June 29, 2025 Assessment & Plan (1) Septic shock: (2) Bacteremia: (3) Cellulitis: (4) Multiple myeloma: (5) Transaminitis: (6) JOSE (acute kidney injury): (7) Encephalopathy: (8) Syncope: (9) Hypokalemia: (10) Witnessed episode of apnea: (11) Acute respiratory failure with hypoxia: (12) Hypothyroidism: (13) Type 2 diabetes mellitus: (14) Morbid obesity with BMI of 45.0-49.9, adult: Plan 59yo male with multiple myeloma on Revlimid/dexamethasone presented to the ER with right lower extremity cellulitis, fever, and hypotension. #Septic shock / Strep dysgalactiae Bacteremia - -Source - SEVERE RLE cellulitis -CT RLE without nec fasc or abscess -required ICU care for his septic shock; was on levophed from 06/23 to 06/24 then stopped -required stress dose steroids -repeat blood cx's 06/27 negative to date #severe RLE cellulitis - -ongoing -06/28 -- antibiotics broadened to IV daptomycin & Zosyn due to worsening RLE exam findings -s/p consult by Dr Daniels from podiatry; portion of the distal RLE was debrided; cultures sent -cont local wound care -cont IV diuretics #Right sided congestive heart failure - -ongoing -cont bumex 4mg IV BID -place bumex on hold after tonight's dose -check BMP am -resume bumex tomorrow if Creatinine is stable -suspect right-sided CHF is due to ISHMAEL/OHS #Type 2 diabetes mellitus - -new diagnosis -HbA1C 7.8% -Appreciate pharmacy glycemic team -cont basal-bolus insulin #JOSE - -likely 2nd to sepsis-associated ATN -peak Cr 1.8 -Cr 1.6 today -cont supportive care #h/o Hypertension, but now orthostatic in the setting of attempts at diuresis - -hold coreg -add midodrine 2.5mg TID given his dizziness and +orthostatics -hold bumex after tonight's dose #Syncope - -Suspect due to septic shock as BPs were dangerously low at time of ER presentation -echo with preserved EF, but has significant right-sided CHF; thus he is preload dependent #Multiple Myeloma - -Holding dexamethasone and Revlimid -continue allopurinol #Acute respiratory failure with hypoxia / Witnessed apneic episodes (in the ER) - resolved - -VBG on admission without significant hypercapnia (37) -encourage CPAP with sleep -needs sleep study as outpatient #Hypothyroidism -TSH 1.525 -Continue levothyroxine #Hypokalemia / hypomagnesemia - -replace low K today -mag level today wnl -repeat labs in am #Hyponatremia - -Mild - stable in the low 130s -BMP am #morbid obesity - BMI 47 #DVT Proph - -heparin 5000 TID; this should be 7500 TID given morbid obesity PT, OT when able pain meds for RLE pain Admission and Anticipated Discharge Date Admission Date: June 23, 2025 Subjective patient lying in recliner chair during the visit c/o RLE pain c/o ongoing warmth/redness poor appetite also very tired and feels dizzy; he feels it is BP-related Review of Systems Review of Systems: gen - no fevers or chills cv - no chest pain pulm - no dyspnea GI - no N/V; no abd pain Physical Exam Physical Exam: gen - obese, NAD neck - no JVD mouth - MMM heart - RRR, s1 s2, no murmur lungs - CTA b/l abd - soft NT ND BS+ ext - RLE - 3-4+ edema from foot to right thigh; erythematous thigh mainly medially; erythema extends to below the knee; ANGELIC wraps/dressings from tibial plateau area down to the foot; cap refill right foot <2sec; pulses right foot about 2+; LLE - 1+ edema, stasis changes left lester, pulses left foot 2+ psych - a/o x 3 Results & Data Results & Data Vital Signs (Past 12 Hours) Vital Signs Temp Pulse Resp BP BP Pulse Ox O2 Del Method 06/29/25 16:34 76 16 105/69 96 Room Air 06/29/25 14:54 36.8 C 79 18 105/71 95 Room Air 06/29/25 07:46 36.9 C 81 20 110/69 95 Room Air Laboratory Results Abnormal lab results 06/28/25 06/29/25 06/29/25 Range/Units 20:27 06:31 07:48 RBC 3.73 L (4.70-6.10) M/uL Hgb 11.1 L (14.0-18.0) g/dl Hct 33.1 L (42.0-52.0) % RDW Std Deviation 55.4 H (36.4-46.3) fL RDW Coeff of Shlomo 17.2 H (11.5-14.5) % Lymphocytes # (Manual) 0.78 L (1.2-3.4) K/uL Total Abs Lymphocytes 0.78 L (1.2-3.4) K/uL Monocytes # (Manual) 1.12 H (0.11-0.59) K/uL Basophils # (Manual) 0.26 H (0-0.2) K/uL Metamyelocytes # (Man) 0.43 H (0-0) K/uL Myelocytes # (Manual) 0.26 H (0-0) K/uL Sodium 132 L (136-145) mmol/L Potassium 3.2 L (3.5-5.1) mmol/L Chloride 96 L (98-107) mmol/L BUN 38 H (6-23) mg/dl Creatinine 1.67 H (0.6-1.4) mg/dl BUN/Creatinine Ratio 22.8 H (10-20) Glucose 142 H (70-99(Fasting)) mg/dl POC Glucose 165 H 139 H (70-99) mg/dl Calcium 8.0 L (8.6-10.3) mg/dl 06/29/25 06/29/25 Range/Units 11:25 16:37 RBC (4.70-6.10) M/uL Hgb (14.0-18.0) g/dl Hct (42.0-52.0) % RDW Std Deviation (36.4-46.3) fL RDW Coeff of Shlomo (11.5-14.5) % Lymphocytes # (Manual) (1.2-3.4) K/uL Total Abs Lymphocytes (1.2-3.4) K/uL Monocytes # (Manual) (0.11-0.59) K/uL Basophils # (Manual) (0-0.2) K/uL Metamyelocytes # (Man) (0-0) K/uL Myelocytes # (Manual) (0-0) K/uL Sodium (136-145) mmol/L Potassium (3.5-5.1) mmol/L Chloride (98-107) mmol/L BUN (6-23) mg/dl Creatinine (0.6-1.4) mg/dl BUN/Creatinine Ratio (10-20) Glucose (70-99(Fasting)) mg/dl POC Glucose 144 H 142 H (70-99) mg/dl Calcium (8.6-10.3) mg/dl Diagnostic Findings Microbiology 06/27/25 12:25 Blood Aerobic Blood Culture - Preliminary No growth in Aerobic bottle after 48 hours. 06/27/25 12:25 Blood Anaerobic Blood Culture - Preliminary No growth in Anaerobic bottle after 48 hours. 06/27/25 12:07 Blood Aerobic Blood Culture - Preliminary No growth in Aerobic bottle after 48 hours. 06/27/25 12:07 Blood Anaerobic Blood Culture - Preliminary No growth in Anaerobic bottle after 48 hours. 06/28/25 12:30 Leg,Right Gram Stain - Final 06/28/25 12:30 Leg,Right Aerobic and Anaerobic Culture - Preliminary No growth to date. 06/28/25 12:30 Ankle,Right Gram Stain - Final 06/28/25 12:30 Ankle,Right Aerobic and Anaerobic Culture - Preliminary Pin-point growth present, reincubating. 06/23/25 15:04 Blood Aerobic Blood Culture - Final No growth in Aerobic bottle after 5 days. 06/23/25 15:04 Blood Anaerobic Blood Culture - Preliminary Streptococcus dysgalactiae 06/23/25 14:36 Blood Aerobic Blood Culture - Final Streptococcus dysgalactiae 06/23/25 14:36 Blood Anaerobic Blood Culture - Final Streptococcus dysgalactiae PG Care Time/CCT Total # of Minutes Spent Total Time Spent with Patient: Total time spent is greater than 50% in coordination of care (as documented) at patient's floor/unit and/or counseling patient: Coding Level of Care Code 57557 SUB INP/OBS CARE 3/50MIN Diagnoses Septic shock A41.9; R65.21 Bacteremia R78.81 Cellulitis L03.90 Multiple myeloma C90.00 Transaminitis R74.01 JOSE (acute kidney injury) N17.9 Encephalopathy G93.40 Syncope R55 Hypokalemia E87.6 Witnessed episode of apnea R06.81 Acute respiratory failure with hypoxia J96.01 Hypothyroidism E03.9 Type 2 diabetes mellitus E11.9 Morbid obesity with BMI of 45.0-49.9, adult E66.01; Z68.42
[2025-06-29] MEDS: POTASSIUM CHLORIDE CRTAB 20 MEQ TABCR PO SCH (20:24)
[2025-06-30] MEDS: MIDODRINE HCL 2.5 MG TAB PO SCH (08:37)
[2025-06-30 09:23] LABS: Anion Gap 9.0 (3-11); Blood Urea Nitrogen 35.0 mg/dl (6-23); Calcium 8.2 mg/dl (8.6-10.3); Carbon Dioxide 27.0 mmol/L (21-32); Chloride 95.0 mmol/L (98-107); Creatinine Clr Calc Pharmacy 84.0 ml/min; Glucose 166.0 mg/dl (70-99(Fasting)); Potassium 3.2 mmol/L (3.5-5.1); Sodium 131.0 mmol/L (136-145)
--- NOTE | 2025-06-30 15:15 | Podiatry Progress Note ---
Date of Service June 30, 2025 Assessment & Plan (1) Cellulitis of right lower extremity: (2) Erysipelas of right lower extremity: (3) Streptococcal bacteremia: (4) Type 2 diabetes mellitus: Plan Cellulitis/erysipelas right lower extremity: -Soft tissue for culture right lateral leg. Culture swab of right medial ankle wound. - No growth to date. Continues daptomycin and Zosyn - Wound dressing changed. Open wounds medially and laterally and anterior leg dressed with Xeroform to minimize adhesions followed by ABD pads and Sharron. Dressed the right lower extremity with [place] bandage from the base of the toes to the proximal leg. Continue change dressing twice daily and as needed. - Continue to elevate right lower extremity while at rest. - Continue to trend procalcitonin. Will continue to monitor condition of right leg while patient remains in the hospital. With any further breakdown in the skin to the anterior leg or any signs of purulent drainage or further formation of necrotic tissue would recommend debridement of necrotic tissue and deroofing of the remaining blisters however this time continue to drain a clear serous oc fluid provide a somewhat clean natural moisture barrier. Will continue to follow closely and debride as necessary. Admission and Anticipated Discharge Date Admission Date: June 23, 2025 Subjective Patient resting comfortably in bedside chair with legs elevated on foot rest. Dressing is in place and intact having been placed between 5 and 6:00 this morning. On removal of dressing ABD pads are saturated with oc-colored serous drainage. No signs of purulent drainage to dressing. Patient denies pain with dressing change. Reports that he continues to have some nausea, loss of appetite and malaise. Denies vomiting, fever, chills. Review of Systems Review of Systems: Reports nausea and malaise. Denies vomiting fever chills, diarrhea. Reports minimal discomfort to the right leg at baseline. Physical Exam Physical Exam: Right lower extremity: Erythema and edema extending from the dorsal foot to the proximal calf on the right lower extremity. Reduced edema to the right leg with light compression and elevation close continued use of Bumex. No significant change in erythema to the right lower extremity. Areas of previous debridement of the medial and lateral leg appear quite healthy with granular wound bed to the lateral wound and slough overlying the wound base of the medial wound. Persistent bullous formation to a large surface area of the anterior leg dr aining serous fluid. Several new bullous formation at the distal leg. Results & Data Results & Data Vital Signs (Past 12 Hours) Vital Signs Pulse Resp BP Pulse Ox O2 Del Method 06/30/25 12:38 66 18 120/74 97 Room Air 06/30/25 08:45 Room Air 06/30/25 08:10 88 18 126/78 96 Room Air Coding Level of Care Code 57503 SUB INP/OBS CARE 2/35MIN Diagnoses Cellulitis of right lower extremity L03.115 Erysipelas of right lower extremity A46 Streptococcal bacteremia R78.81; B95.5 Type 2 diabetes mellitus E11.9
[2025-06-30] MEDS: BUMETANIDE 2 MG in SYRINGE 0 ML IV ONE (18:30)
[2025-06-30] MEDS: POTASSIUM CHLORIDE 10 MEQ TABCR PO STA (18:30)
--- NOTE | 2025-06-30 20:10 | Hospitalist Progress Note ---
Date of Service June 30, 2025 Assessment & Plan (1) Septic shock: (2) Bacteremia: (3) Cellulitis: (4) Multiple myeloma: (5) Transaminitis: (6) JOSE (acute kidney injury): (7) Encephalopathy: (8) Syncope: (9) Hypokalemia: (10) Witnessed episode of apnea: (11) Acute respiratory failure with hypoxia: (12) Hypothyroidism: (13) Type 2 diabetes mellitus: (14) Morbid obesity with BMI of 45.0-49.9, adult: Plan 59yo male with multiple myeloma on Revlimid/dexamethasone presented to the ER with right lower extremity cellulitis, fever, and hypotension. #Septic shock / Strep dysgalactiae Bacteremia - -Source - SEVERE RLE cellulitis -CT RLE without nec fasc or abscess -required ICU care for his septic shock; was on levophed from 06/23 to 06/24 then stopped -required stress dose steroids - now off steroids -repeat blood cx's 06/27 negative to date #severe RLE cellulitis - -ongoing - perhaps mild improvement noted in the RIGHT thigh and possibly a little less intensely red over the RIGHT LESTER -06/28 -- antibiotics broadened to IV daptomycin & Zosyn due to worsening RLE exam findings; thus day #3 of these 2 abx -defer abx selection to infectious diseases -s/p consult by Dr Daniels from podiatry; portion of the distal RLE was debrided; cultures sent but these remain negative; appreciate his assistance -cont local wound care and dressings -cont IV diuretics #Right sided congestive heart failure - newly diagnosed - -ongoing -cont bumex but I skipped this AM's dose due to dizziness but did give a smaller dose (2mg) later in the day -check BMP am -suspect right-sided CHF is due to untreated/undiagnosed ISHMAEL/OHS #Type 2 diabetes mellitus - -new diagnosis -HbA1C 7.8% -Appreciate pharmacy glycemic team -cont basal-bolus insulin -glycemic control is very satisfactory #JOSE - -likely 2nd to sepsis-associated ATN -peak Cr 1.8 -Cr 1.5 today -cont supportive care -BMP am -baseline Cr close to 1? #h/o Hypertension, but now orthostatic in the setting of attempts at diuresis - -hold coreg -added midodrine 2.5mg TID given his dizziness and +orthostatics -consider titration to 5mg as he has systolic BPs 100-105 at times still #Syncope - -Suspect due to septic shock as BPs were dangerously low at time of ER presentation -echo with preserved EF, but has significant right-sided CHF; thus he is preload dependent #Multiple Myeloma - -Holding dexamethasone and Revlimid -continue allopurinol #Acute respiratory failure with hypoxia / Witnessed apneic episodes (in the ER) - resolved - -VBG on admission without significant hypercapnia (37) -encourage CPAP with sleep while here -needs sleep study as outpatient #Hypothyroidism -TSH 1.525 -Continue levothyroxine #Hypokalemia / hypomagnesemia - -replace low K once again today -provide BID mag oxide in face of diuresis -repeat BMP and mag in am tomorrow #Hyponatremia - -Mild - stable in the low 130s -BMP am #morbid obesity - BMI 47/48 #DVT Proph - -heparin 5000 TID; this should be 7500 TID given morbid obesity -will change -PT, OT when able; he has declined to work with PT 3 days in a row due to RLE pain -pain meds for RLE pain: -if Creatinine tomorrow is stable consider NSAID for 2-3 days -cont tylenol 1gm TID scheduled -cont oxy 10's prn Admission and Anticipated Discharge Date Admission Date: June 23, 2025 Subjective patient lying in recliner chair comfortably no pain when lying, but any ambulation leads to pain in the right distal leg/foot he thinks that the redness in the right thigh is improved I changed the dressings with his nurse today after verbal permission I took photos of his RLE using Zoodig Martha told him I would place these photos in his chart, and would inform the ID physician of the appearance of his RLE not as much dizziness today appetite still "off" had a normal stool this am Review of Systems 2 Review of Systems: gen - no fevers, no chills CV - no chest pain pulm - no dyspnea GI - no N/V Physical Exam 2 Physical Exam: gen - obese, NAD, lying in recliner chair neck - no JVD mouth - MMM heart - RRR, s1 s2, no murmur lungs - CTA b/l abd - soft NT ND BS+ ext - RLE - 3+ edema from foot to right thigh; light pink erythema of thigh mainly medially - improved; more intense erythema extends from the anterior R knee to the foot; pulses right foot about 2+; LLE - <1+ edema, stasis changes left lester, pulses left foot 2+ skin - severe blistering and devitalized skin of anterior RLE lester; large fluid- filled blister/bullae left distal medial leg just above the right ankle; there is a large area of previously debrided skin laterally just above the ankle (see photos of the leg in this note); this debrided region is intensely red in the ulcer base; there is a 2nd circular area of debrided skin above the aforementioned ulceration that is light pink in color in the wound base; lester from right knee to right foot warm to touch; areas of ecchymoses scattered on right foot and right lester psych - a/o x 3 Results & Data Results & Data Vital Signs (Past 12 Hours) Vital Signs Temp Pulse Resp BP Pulse Ox O2 Del Method 06/30/25 15:31 36.8 C 65 18 107/69 95 Room Air 06/30/25 12:38 66 18 120/74 97 Room Air 06/30/25 08:45 Room Air Laboratory Results Laboratory Results - last 24 hr 06/29/25 06/30/25 06/30/25 20:20 07:16 08:30 Sodium 131 L Potassium 3.2 L Chloride 95 L Carbon Dioxide 27 Anion Gap 9 BUN 35 H Creatinine 1.56 H Est Cr Clr Drug Dosing 84.0 eGFR 51.48 BUN/Creatinine Ratio 22.4 H Glucose 166 H POC Glucose 149 H 159 H Calcium 8.2 L 06/30/25 06/30/25 11:36 16:05 Sodium Potassium Chloride Carbon Dioxide Anion Gap BUN Creatinine Est Cr Clr Drug Dosing eGFR BUN/Creatinine Ratio Glucose POC Glucose 159 H 137 H Calcium Diagnostic Findings Microbiology 06/28/25 12:30 Ankle,Right Gram Stain - Final 06/28/25 12:30 Ankle,Right Aerobic and Anaerobic Culture - Preliminary Low counts mixed probable skin microbiota. 06/27/25 12:25 Blood Aerobic Blood Culture - Preliminary No growth in Aerobic bottle after 48 hours. 06/27/25 12:25 Blood Anaerobic Blood Culture - Preliminary No growth in Anaerobic bottle after 48 hours. 06/27/25 12:07 Blood Aerobic Blood Culture - Preliminary No growth in Aerobic bottle after 48 hours. 06/27/25 12:07 Blood Anaerobic Blood Culture - Preliminary No growth in Anaerobic bottle after 48 hours. 06/28/25 12:30 Leg,Right Gram Stain - Final 06/28/25 12:30 Leg,Right Aerobic and Anaerobic Culture - Preliminary No growth to date. 06/23/25 15:04 Blood Aerobic Blood Culture - Final No growth in Aerobic bottle after 5 days. 06/23/25 15:04 Blood Anaerobic Blood Culture - Preliminary Streptococcus dysgalactiae 06/23/25 14:36 Blood Aerobic Blood Culture - Final Streptococcus dysgalactiae 06/23/25 14:36 Blood Anaerobic Blood Culture - Final Streptococcus dysgalactiae Anterior RLE lester from knee to ankle: Medial RLE from knee to just above R ankle: Lateral RLE above the right ankle (ankle is on right of photo, proximal leg is on left of photo): RIGHT knee and proximal tibial region on right: PG Care Time/CCT Total # of Minutes Spent Total Time Spent with Patient: Total time spent is greater than 50% in coordination of care (as documented) at patient's floor/unit and/or counseling patient: Coding Level of Care Code 36194 SUB INP/OBS CARE 3/50MIN Diagnoses Septic shock A41.9; R65.21 Bacteremia R78.81 Cellulitis L03.90 Multiple myeloma C90.00 Transaminitis R74.01 JOSE (acute kidney injury) N17.9 Encephalopathy G93.40 Syncope R55 Hypokalemia E87.6 Witnessed episode of apnea R06.81 Acute respiratory failure with hypoxia J96.01 Hypothyroidism E03.9 Type 2 diabetes mellitus E11.9 Morbid obesity with BMI of 45.0-49.9, adult E66.01; Z68.42
[2025-06-30] MEDS: MAGNESIUM OXIDE 400 MG TAB PO SCH (22:19)
[2025-07-01] MEDS: MIDODRINE HCL 2.5 MG TAB PO SCH (08:49)
--- NOTE | 2025-07-01 09:27 | Pharmacy Report ---
Pharmacy Glycemic Short Note 2 - Date of Service July 01, 2025 - Glycemic Short BSG Results (Last 24 hours): 06/30/25 06/30/25 06/30/25 08:30 11:36 16:05 Glucose 166 H POC Glucose 159 H 137 H 06/30/25 07/01/25 20:33 07:43 Glucose POC Glucose 156 H 114 H OUTPATIENT ANTIDIABETIC REGIMEN: * N/A * A1c 7.8% 06/24/25 ASSESSMENT: 07/01: * Blood sugars have been well-controlled (ranging 137-159 mg/dL yesterday) * Fasting blood sugar controlled today at 114 mg/dL * Do not anticipate any changes to glycemic regimen today 06/29: * Terry received 38 units of insulin yesterday (10 were basal) * Fasting BSG this Am within goal range, continue current basal regimen. * No changes to NovoLog at this time. He is currently on daptomycin/Zosyn, no other glycemic stressors noted. 06/27 * Patient received total of 53 units of insulin yesterday, of which 20 units were basal * Fasting BSG 145 mg/dL - will continue Lantus scale * No change to CF/CR 06/24 * Patient admitted septic shock- cellulitis with strep bacteremia. * BSG on labs overnight 378 mg/dL-- on levophed which is being titrated off. On hydrocortisone 50 mg q6h * Insulin infusion initially deferred d/t Novolog dose administered prior to consult. Novolog parameters were adjusted to weight stress 2- actual body weight * BSG down to 190 mg/dL on 0800 check. Breakfast ordered * Will continue with basal/bolus for now as pressors are being weaned off and BSG has improved. * Will initiate weight stress 2 basal- adjusted body weight for now. Monitor trend * Lower threshold to begin insulin infusion PLAN FOR INPATIENT GLYCEMIC CONTROL: * Hold outpatient oral diabetes medications * Basal insulin * Lantus 10 units SQ daily * Bolus insulin * NovoLog per scale ACHS or Q6hrs while NPO * Goal Range: Low 110 mg/dL - High 140 mg/dL * Correction Factor: 20 mg/dL/unit * Nutritional / Prandial insulin per carb ratio of 1 unit per 6 grams CHO consumed
[2025-07-01 11:36] LABS: Anion Gap 7.0 (3-11); Calcium 8.2 mg/dl (8.6-10.3); Carbon Dioxide 28.0 mmol/L (21-32); Chloride 94.0 mmol/L (98-107); Magnesium 2.0 mg/dl (1.7-2.4); Potassium 3.3 mmol/L (3.5-5.1); Sodium 129.0 mmol/L (136-145)
[2025-07-01 11:42] LABS: Blood Urea Nitrogen 33.0 mg/dl (6-23); Creatinine Clr Calc Pharmacy 82.3 ml/min; Glucose 107.0 mg/dl (70-99(Fasting))
--- NOTE | 2025-07-01 13:23 | Infectious Disease Progress Nt ---
Date of Service July 01, 2025 Assessment & Plan (1) Cellulitis of right lower extremity: (2) Streptococcal bacteremia: Plan Problems: #RLE cellulitis #Strep dysgalactiae bacteremia #MM on Revlimid and dex Micro: 06/28 R ankle wound cx: low counts mixed probable skin microbiota. GS--few GPCs 06/28 R leg wound cx: NGTD. GS--no org 06/27 BCx x2: NGTD 06/23 BCx x2: Strep dysgalactiae in 3/4 bottles (S penicillin, amp, ceftriaxone, levo, tetra) Abx: Cefazolin 06/27 - 06/28 Ceftriaxone 06/24 - 06/26 Metronidazole 06/24 - 06/26 Zosyn 06/23 - 06/24, 06/28 - present Cefepime 06/23 Dapto 06/23, 06/28 - present 59 yo M with MM (on Revlimid and dexamethasone) who presented on 06/23 with RLE pain and erythema, found to have RLE cellulitis and Strep dysgalactiae bacteremia. He reports an initial injury with hitting his leg with a rock 2 days prior. His symptoms have been getting progressively worse, with fevers and chills. While a friend drove him to the ED, pt had chest pain and shortness of breath with two syncopal episodes. On presentation, pt was afebrile, VSS. Noted on exam to have erythema and swelling of the RLE with a small scabbed area on the lateral side. Labs showed WBC 3.09, Cr 1.52, lactate 4.2, AST 55, ALT 68, procal 0.96. CTA chest with no PE, no consolidation. XR R tib/fib with no fractures or osteomyelitis, with RLE soft tissue swelling. RLE venous doppler with no DVT. He was started on dapto and cefepime in the ED, and admitted to the ICU for hypotension requiring pressors. Cefepime switched to Zosyn. Started on stress dose steroids. CT RLE without contrast showed subcutaneous edema without further evidence of suggest nec fasc. BCx growing Strep dysgalactiae in 3/4 bottles. Antibiotics now narrowed to ceftriaxone. Weaned off pressors on 8 AM. TTE with no vegetations. Narrowed to cefazolin on 06/27. However, although pt remains afebrile and stable, no improvement in RLE erythema, swelling. Procalcitonin has gone up from 0.96 on admission, to 4.73 on 06/27, 3.18 on 06/28. Broadened antibiotics back to dapto and Zosyn on 06/28. Podiatry consulted and performed debridement of nonviable tissue, sent for culture, thus far only growing low counts of mixed probable skin microbiota. As of 06/30, R thigh erythema resolving, but still with significant erythema, swelling, and blistering skin. Recommendations: -Can continue daptomycin and Zosyn, although think this is more likely purely Strep infection -Follow-up nonfinalized 06/28 wound cultures -Elevation of RLE to help with erythema, edema Please note that ID does not round or write notes over the weekend. If question s or concerns arise, please contact the Infectious Disease Call Center and ask to speak with the covering ID physician. [] will take over on Friday. Admission and Anticipated Discharge Date Admission Date: June 23, 2025 Subjective This patient recommendation is based on a telemedicine consult request which was completed asynchronously through chart review and information provided by the primary physician. The patient was not seen or examined today. The evaluation is consultative in nature and all patient care and treatment decisions can either be accepted or rejected by the patient's primary hospital-based treating physician using their own independent medical judgment for their patient. An e-consult was performed as the video cart is not functioning. Time Spent Reviewing Chart: 11 - 20 minutes No acute events Remains afebrile without leukocytosis Results & Data Vital Signs (Past 12 Hours) Vital Signs Temp Pulse Resp BP Pulse Ox O2 Del Method 07/01/25 09:00 Room Air 07/01/25 07:41 36.6 C 64 16 110/65 97 Room Air 07/01/25 01:12 66 110/71 95 Room Air Laboratory Results [facility] 07/01/25 10:57 Sodium 129 L Potassium 3.3 L Chloride 94 L Carbon Dioxide 28 BUN 33 H Creatinine 1.60 H Glucose 107 H Calcium 8.2 L Medications Administered Current Inpatient Medications Acetaminophen (Acetaminophen 500 Mg Tab) 1,000 mg PO TID [facility] Stop: 07/25/25 08:59 Last Admin: 07/01/25 08:54 Dose: 1,000 mg Allopurinol (Allopurinol 100 Mg Tab) 100 mg PO DAILY [facility] Stop: 07/25/25 08:59 Last Admin: 07/01/25 08:49 Dose: 100 mg Carvedilol (Carvedilol 3.125 Mg Tab) 3.125 mg PO BIDM [facility] Stop: 07/26/25 07:59 Last Admin: 06/29/25 16:33 Dose: Not Given Cetirizine HCl (Cetirizine Hcl 10 Mg Tablet) 10 mg PO DAILY [facility] Stop: 07/25/25 08:59 Last Admin: 07/01/25 08:49 Dose: 10 mg Dextrose (Dextrose 50% 50 Ml Syringe) 25 - 50 ml IV UD PRN; Protocol PRN Reason: Hypoglycemia Protocol Stop: 07/23/25 20:22 Escitalopram Oxalate (Escitalopram Oxalate 10 Mg Tab) 10 mg PO QAM [facility] Stop: 07/25/25 08:59 Last Admin: 07/01/25 08:50 Dose: 10 mg Glucagon (Glucagon For Inj 1 Mg Vial) 1 mg SQ UD PRN; Protocol PRN Reason: Hypoglycemia Protocol Stop: 07/23/25 20:22 Glucose (Glucose 40% Gel 15 Gm Tube) 15 - 30 gm PO UD PRN; Protocol PRN Reason: Hypoglycemia Protocol Stop: 07/23/25 20:22 Glucose (Glucose 10 Tab/Tube) 4 - 8 tab PO UD PRN; Protocol PRN Reason: Hypoglycemia Protocol Stop: 07/23/25 20:22 Heparin Sodium (Beef Lung) (Heparin 10 Unit/Ml 5 Ml Flush) 5 ml FLUSH PRN PRN PRN Reason: Flush Stop: 07/23/25 19:24 Heparin Sodium (Porcine) (Heparin Sod 5,000 Unit/0.5 Ml Vial) 7,500 units SQ Q8 [facility] Stop: 07/31/25 13:59 Daptomycin 700 mg/ Syringe 14 mls @ 7 mls/min IV Q24H [facility]; Protocol Stop: 07/05/25 11:59 Last Admin: 07/01/25 11:50 Dose: 7 mls/min Piperacillin Sod/Tazobactam Sod (Zosyn) 4.5 gm in 100 mls @ 25 mls/hr IV Q8H [facility]; Protocol Stop: 07/05/25 17:59 Last Admin: 07/01/25 10:47 Dose: 25 mls/hr Bumetanide 4 mg/ Syringe 16 mls @ 4 mls/min IV BID@0900,1700 [facility] Stop: 07/29/25 08:59 Last Admin: 06/29/25 16:35 Dose: 4 mls/min Insulin Aspart (Insulin Aspart Per Unit Charge) 0 units SC ACHS [facility] Stop: 07/24/25 07:59 Last Admin: 07/01/25 12:45 Dose: Not Given Insulin Glargine (Lantus Per Unit Charge) 10 units SC DAILY [facility] Stop: 07/28/25 08:59 Last Admin: 07/01/25 08:46 Dose: 10 units Levothyroxine Sodium (Levothyroxine Sodium 50 Mcg Tablet) 50 mcg PO DAILYBB [facility] Stop: 07/25/25 06:29 Last Admin: 07/01/25 05:49 Dose: 50 mcg Magnesium Oxide (Magnesium Oxide 400 Mg Tab) 400 mg PO BID [facility] Stop: 07/30/25 20:59 Last Admin: 07/01/25 08:50 Dose: 400 mg Midodrine (Midodrine Hcl 2.5 Mg Tab) 5 mg PO TID@0800,1200,1700 [facility] Stop: 07/31/25 07:59 Last Admin: 07/01/25 11:50 Dose: 5 mg Miscellaneous (Carbohydrates For Hypoglycemia ) 15 - 30 gm PO UD PRN PRN Reason: Hypoglycemia Protocol Stop: 07/23/25 20:22 Miscellaneous (Remove Nicoderm Patch) 1 each N/A DAILY@0859 [facility] Stop: 07/25/25 08:58 Last Admin: 07/01/25 08:50 Dose: 1 each Miscellaneous Information (Pharmacy Glycemic Mgmt Consult) 1 each N/A UD PRN PRN Reason: Consult Stop: 07/24/25 05:18 Montelukast Sodium (Montelukast Sodium 10 Mg Tablet) 10 mg PO HS [facility] Stop: 07/24/25 20:59 Last Admin: 06/30/25 22:09 Dose: 10 mg Nicotine (Nicotine 14 Mg/24 Hr Patch) 1 patch TD QAM [facility] Stop: 07/24/25 20:19 Last Admin: 07/01/25 09:14 Dose: Not Given Ondansetron HCl (Ondansetron Inj 2 Mg/Ml 2 Ml Vial) 4 mg IV Q6H PRN PRN Reason: Nausea And Vomiting Stop: 07/23/25 19:30 Last Admin: 06/30/25 08:36 Dose: 4 mg Oxycodone HCl (Oxycodone Hcl Ir 5 Mg Tab (Immediate Release)) 5 mg PO Q4H PRN PRN Reason: MODERATE Pain (4,5,6) & Pre PT Stop: 07/09/25 07:18 Last Admin: 06/29/25 16:56 Dose: 5 mg Oxycodone HCl (Oxycodone Hcl Ir 5 Mg Tab (Immediate Release)) 10 mg PO Q4H PRN PRN Reason: SEVERE Pain (7,8,9,10) Stop: 07/09/25 07:18 Last Admin: 07/01/25 10:18 Dose: 10 mg Potassium Chloride (Potassium Chloride Crtab 20 Meq Tabcr) 20 meq PO BID [facility] Stop: 07/29/25 20:59 Last Admin: 07/01/25 08:54 Dose: 20 meq
[2025-07-01] MEDS: POTASSIUM CHLORIDE 10 MEQ TABCR PO STA (13:49)
[2025-07-01] MEDS: HEPARIN SOD 5,000 UNIT/0.5 ML VIAL SQ SCH (15:01)
--- NOTE | 2025-07-01 20:14 | Hospitalist Progress Note ---
Date of Service July 01, 2025 Assessment & Plan (1) Septic shock: (2) Bacteremia: (3) Cellulitis: (4) Multiple myeloma: (5) Transaminitis: (6) JOSE (acute kidney injury): (7) Encephalopathy: (8) Syncope: (9) Hypokalemia: (10) Witnessed episode of apnea: (11) Acute respiratory failure with hypoxia: (12) Hypothyroidism: (13) Type 2 diabetes mellitus: (14) Morbid obesity with BMI of 45.0-49.9, adult: Plan 59yo male with multiple myeloma on Revlimid/dexamethasone presented to the ER with right lower extremity cellulitis, fever, and hypotension. #Septic shock / Strep dysgalactiae Bacteremia - -Source - SEVERE RLE cellulitis -CT RLE without nec fasc or abscess -required ICU care for his septic shock; was on levophed from 06/23 to 06/24 then stopped -required stress dose steroids in ICU - was weaned off steroids, but given the new information that he was taking dexamethasone daily will restart dex at 4mg/day starting now -repeat blood cx's 06/27 remain negative to date #severe RLE cellulitis - IMPROVING - -06/28 -- antibiotics broadened to IV daptomycin & Zosyn due to worsening RLE exam findings; thus day #4 of these 2 abx -defer abx selection to infectious diseases but they advise to continue both for now given the severity of the cellulitis -s/p consult by Dr Daniels from podiatry; portion of the distal RLE was debrided; cultures sent but these remain negative; appreciate his assistance -cont local wound care and dressings #Right sided congestive heart failure - newly diagnosed - -ongoing but improved -Na level 129 today - HOLD diuretics today -check BMP am tomorrow and if Na is stable will resume bumex -suspect right-sided CHF is due to untreated/undiagnosed ISHMAEL/OHS #Type 2 diabetes mellitus - -new diagnosis -HbA1C 7.8% -Appreciate pharmacy glycemic team -cont basal-bolus insulin -glycemic control is very good #JOSE - -likely 2nd to sepsis-associated ATN -peak Cr 1.8 -Cr 1.6 today -cont supportive care -BMP am -baseline Cr close to 1? #h/o Hypertension, but now orthostatic in the setting of attempts at diuresis - -hold coreg -added midodrine 2.5mg TID given his dizziness and +orthostatics -titrate to 5mg TID as he has systolic BPs 100-105 at times still and is symptomatic -dexamethasone should help the orthostasis #Syncope - -Suspect due to septic shock as BPs were dangerously low at time of ER presentation -echo with preserved EF, but has significant right-sided CHF; thus he is preload dependent -probably element of Addisonian features given the chronic dexamethasone use #Multiple Myeloma - -Holding Revlimid -continue allopurinol #Acute respiratory failure with hypoxia / Witnessed apneic episodes (in the ER) - resolved - -VBG on admission without significant hypercapnia (37) -encourage CPAP with sleep while here -needs sleep study as outpatient #Hypothyroidism -TSH 1.525 -Continue levothyroxine #Hypokalemia / hypomagnesemia - -replaced/resolved #Hyponatremia - -Mild-moderate, 129 today; hold diuresis -BMP am #morbid obesity - BMI 47/48 #DVT Proph - -heparin - increase to 7500 TID given morbid obesity cont PT/OT dispo? Admission and Anticipated Discharge Date Admission Date: June 23, 2025 Subjective patient overall feels better today no dizziness fatigue improved he still states his appetite is not good, but nursing flowsheets show he is eating 100% of meals RLE pain improved he was able to bear weight on the RLE today much more easily can bend the right knee w/o pain or difficulty moving bowels; no diarrhea today I assisted his nurse in changing the dressings of RLE with his verbal permission took additional photos today (scanned into this note) he agrees the leg "looks better" we discussed his dexamethasone use at home we were all under the impression that he took 40mg of dexamethasone once a week when he gets his chemo for multiple myeloma however, he reports that "for a long time" he has been taking 4mg of dexamethasone on daily basis when he is not taking the large bolus load on chemo days he says "if I don't take the steroid every day I crash" Review of Systems 2 Review of Systems: gen - no fevers or chills cv - no cp pulm - no dyspnea GI - no diarrhea Physical Exam 2 Physical Exam: gen - obese, NAD, lying in bed comfortably neck - no JVD mouth - MMM heart - RRR, s1 s2, no murmur lungs - CTA b/l abd - soft NT ND BS+ ext - RLE - 2-3+ edema from foot to right thigh; light pink erythema of thigh mainly medially - again improved/resolving; more intense erythema extends from the anterior R knee to the foot but the redness IS improved today as well; pulses right foot about 2+; LLE - <1+ edema, stasis changes left lester, pulses left foot 2+ skin - severe blistering and devitalized skin of anterior RLE lester; large fluid- filled blister/bullae left distal medial leg just above the right ankle; there is a large area of previously debrided skin laterally just above the ankle (see photos); this debrided region is still intensely red in the ulcer base but no purulence or odor; there is a 2nd circular area of debrided skin above the aforementioned ulceration that is light pink in color in the wound base; lester from right knee to right foot warm to touch; areas of ecchymoses scattered on right foot and right lester psych - a/o x 3 Results & Data Results & Data Vital Signs (Past 12 Hours) Vital Signs Temp Pulse Resp BP Pulse Ox O2 Del Method 07/01/25 15:03 36.5 C 61 18 121/71 98 Room Air 07/01/25 09:00 Room Air Laboratory Results Laboratory Results - last 24 hr 07/01/25 07/01/25 07/01/25 07:43 10:57 11:21 WBC RBC Hgb Hct MCV MCH MCHC RDW Std Deviation RDW Coeff of Shlomo Plt Count MPV Sodium 129 L Potassium 3.3 L Chloride 94 L Carbon Dioxide 28 Anion Gap 7 BUN 33 H Creatinine 1.60 H Est Cr Clr Drug Dosing 82.3 eGFR 49.94 BUN/Creatinine Ratio 20.6 H Glucose 107 H POC Glucose 114 H 107 H Calcium 8.2 L Magnesium 2.0 Diagnostic Findings Microbiology 06/23/25 15:04 Blood Aerobic Blood Culture - Final No growth in Aerobic bottle after 5 days. 06/23/25 15:04 Blood Anaerobic Blood Culture - Final Streptococcus dysgalactiae 06/28/25 12:30 Ankle,Right Gram Stain - Final 06/28/25 12:30 Ankle,Right Aerobic and Anaerobic Culture - Preliminary Low counts mixed probable skin microbiota. 06/28/25 12:30 Leg,Right Gram Stain - Final 06/28/25 12:30 Leg,Right Aerobic and Anaerobic Culture - Preliminary No growth to date. 06/27/25 12:25 Blood Aerobic Blood Culture - Preliminary No growth in Aerobic bottle after 48 hours. 06/27/25 12:25 Blood Anaerobic Blood Culture - Preliminary No growth in Anaerobic bottle after 48 hours. 06/27/25 12:07 Blood Aerobic Blood Culture - Preliminary No growth in Aerobic bottle after 48 hours. 06/27/25 12:07 Blood Anaerobic Blood Culture - Preliminary No growth in Anaerobic bottle after 48 hours. 06/23/25 14:36 Blood Aerobic Blood Culture - Final Streptococcus dysgalactiae 06/23/25 14:36 Blood Anaerobic Blood Culture - Final Streptococcus dysgalactiae PG Care Time/CCT Total # of Minutes Spent Total Time Spent with Patient: Total time spent is greater than 50% in coordination of care (as documented) at patient's floor/unit and/or counseling patient: Coding Level of Care Code 96431 SUB INP/OBS CARE 3/50MIN Diagnoses Septic shock A41.9; R65.21 Bacteremia R78.81 Cellulitis L03.90 Multiple myeloma C90.00 Transaminitis R74.01 JOSE (acute kidney injury) N17.9 Encephalopathy G93.40 Syncope R55 Hypokalemia E87.6 Witnessed episode of apnea R06.81 Acute respiratory failure with hypoxia J96.01 Hypothyroidism E03.9 Type 2 diabetes mellitus E11.9 Morbid obesity with BMI of 45.0-49.9, adult E66.01; Z68.42
[2025-07-02 06:08] LABS: Hematocrit (blood only) 27.5 % (42.0-52.0); Hemoglobin 9.8 g/dl (14.0-18.0); Mean Corpuscular Hemoglobin 31.1 pg (25.0-34.0); Mean Corpuscular Volume 87.3 fL (80.0-100.0); Platelet Count 327 K/uL (130-400); RDW Standard Deviation 53.1 fL (36.4-46.3); Red Blood Count 3.15 M/uL (4.70-6.10); White Blood Count 10.87 K/ul (4.8-10.8)
[2025-07-02 06:39] LABS: Anion Gap 7.0 (3-11); Blood Urea Nitrogen 27.0 mg/dl (6-23); Calcium 8.3 mg/dl (8.6-10.3); Carbon Dioxide 26.0 mmol/L (21-32); Chloride 98.0 mmol/L (98-107); Creatinine Clr Calc Pharmacy 97.6 ml/min; Glucose 140.0 mg/dl (70-99(Fasting)); Potassium 4.0 mmol/L (3.5-5.1); Sodium 131.0 mmol/L (136-145)
[2025-07-02] MEDS: BUMETANIDE 3 MG in SYRINGE 0 ML IV ONE (08:29)
--- NOTE | 2025-07-02 15:19 | Hospitalist Progress Note ---
Date of Service July 02, 2025 Assessment & Plan (1) Septic shock: (2) Bacteremia: (3) Cellulitis: (4) Multiple myeloma: (5) Transaminitis: (6) JOSE (acute kidney injury): (7) Encephalopathy: (8) Syncope: (9) Hypokalemia: (10) Witnessed episode of apnea: (11) Acute respiratory failure with hypoxia: (12) Hypothyroidism: (13) Type 2 diabetes mellitus: (14) Morbid obesity with BMI of 45.0-49.9, adult: Plan 59yo male with multiple myeloma on Revlimid/dexamethasone presented to the ER with right lower extremity cellulitis, fever, and hypotension. #Septic shock / Strep dysgalactiae Bacteremia - -Source - SEVERE RLE cellulitis -CT RLE without nec fasc or abscess -required ICU care for his septic shock; was on levophed from 06/23 to 06/24 then stopped -required stress dose steroids in ICU - was weaned off steroids, but given the new information that he was taking dexamethasone daily at home (4mg daily) I restarted dex at 4mg/day starting 07/01 -repeat blood cx's 06/27 negative #severe RLE cellulitis - IMPROVING - -06/28 -- antibiotics broadened to IV daptomycin & Zosyn due to worsening RLE exam findings; thus day #5 of these 2 abx -defer abx selection to infectious diseases but they advise to continue both for now given the severity of the cellulitis -s/p consult by Dr Daniels from podiatry; portion of the distal RLE was debrided; cultures sent but these remain negative; appreciate his assistance -cont local wound care and dressings -will look at wounds tomorrow and take photos then #Right sided congestive heart failure - newly diagnosed - -ongoing but improved -Na level 131 today - redose bumex today - give 3mg IV x 1 -repeat labs am tomorrow -suspect right-sided CHF is due to untreated/undiagnosed ISHMAEL/OHS #Type 2 diabetes mellitus - -new diagnosis -HbA1C 7.8% -Appreciate pharmacy glycemic team -cont basal-bolus insulin -glycemic control is very good -would add metformin xr BID if creatinine remains stable to see if we can get him off some of the insulin #JOSE - -likely 2nd to sepsis-associated ATN -peak Cr 1.8 -Cr 1.3 today -cont supportive care -BMP am -baseline Cr close to 1? #h/o Hypertension, but now orthostatic in the setting of attempts at diuresis - -hold coreg -added midodrine 2.5mg TID given his dizziness and +orthostatics -titrated to 5mg TID as he has had systolic BPs 100-105 at times still and was still symptomatic -dexamethasone should help the orthostasis -today, 07/02 -- NO Dizziness or lightheadedness #Syncope - -Suspect due to septic shock as BPs were dangerously low at time of ER presentation -echo with preserved EF, but has significant right-sided CHF; thus he is preload dependent -probably element of Addisonian features given the chronic dexamethasone use #Multiple Myeloma - -Holding Revlimid -continue allopurinol #Acute respiratory failure with hypoxia / Witnessed apneic episodes (in the ER) - resolved - -VBG on admission without significant hypercapnia (37) -encourage CPAP with sleep while here but he is not using it; "I can't do it" -needs sleep study as outpatient #Hypothyroidism -TSH 1.525 -Continue levothyroxine #Hypokalemia / hypomagnesemia - -replaced/resolved #Hyponatremia - -Mild, 131 today -resume bumex -BMP am #morbid obesity - BMI 47/48 #DVT Proph - -heparin 7500 TID given morbid obesity cont PT/OT dispo? home? rehab? Admission and Anticipated Discharge Date Admission Date: June 23, 2025 Subjective RLE pain continues to improve and his ambulation continues to get better can now comfortably weight bear and walk to bathroom on his own LE edema slowly improving denies dyspnea denies diarrhea denies any new complaints asks when he might be able to go home Review of Systems Review of Systems: gen - no fevers, feels much better, appetite improved cv - no chest pain pulm - no dyspnea on exertion GI - no N/V Physical Exam Physical Exam: gen - obese, NAD, lying in recliner chair comfortably neck - no JVD mouth - MMM heart - RRR, s1 s2, no murmur lungs - CTA b/l abd - soft NT ND BS+ ext - RLE - 2+ edema from foot to right thigh; light pink erythema of thigh - again improved vs yesterday's exam; dressings intact from the tibial plateau region down the ankle; right foot - erythema is now a light pink; ecchymoses of right foot resolving psych - a/o x 3 Results & Data Results & Data Vital Signs (Past 12 Hours) Vital Signs Temp Pulse Resp BP Pulse Ox O2 Del Method 07/02/25 07:23 36.7 C 57 L 18 116/71 98 Room Air 07/02/25 07:05 Room Air Laboratory Results Laboratory Results - last 24 hr 07/02/25 07/02/25 07/02/25 05:42 07:23 11:25 Sodium 131 L Potassium 4.0 D Chloride 98 Carbon Dioxide 26 Anion Gap 7 BUN 27 H Creatinine 1.35 Est Cr Clr Drug Dosing 97.6 eGFR 61.24 BUN/Creatinine Ratio 20.0 Glucose 140 H POC Glucose 137 H 147 H Calcium 8.3 L PG Care Time/CCT Total # of Minutes Spent Total Time Spent with Patient: Total time spent is greater than 50% in coordination of care (as documented) at patient's floor/unit and/or counseling patient: Coding Level of Care Code 08127 SUB INP/OBS CARE 2/35MIN Diagnoses Septic shock A41.9; R65.21 Bacteremia R78.81 Cellulitis L03.90 Multiple myeloma C90.00 Transaminitis R74.01 JOSE (acute kidney injury) N17.9 Encephalopathy G93.40 Syncope R55 Hypokalemia E87.6 Witnessed episode of apnea R06.81 Acute respiratory failure with hypoxia J96.01 Hypothyroidism E03.9 Type 2 diabetes mellitus E11.9 Morbid obesity with BMI of 45.0-49.9, adult E66.01; Z68.42
[2025-07-02] MEDS: LANTUS PER UNIT CHARGE SC SCH (21:06)
[2025-07-03 08:10] LABS: Anion Gap 9.0 (3-11); Blood Urea Nitrogen 31.0 mg/dl (6-23); Calcium 8.5 mg/dl (8.6-10.3); Carbon Dioxide 27.0 mmol/L (21-32); Chloride 99.0 mmol/L (98-107); Creatinine Clr Calc Pharmacy 88.7 ml/min; Glucose 107.0 mg/dl (70-99(Fasting)); Magnesium 2.1 mg/dl (1.7-2.4); Potassium 3.6 mmol/L (3.5-5.1); Sodium 135.0 mmol/L (136-145)
[2025-07-03] MEDS: POTASSIUM CHLORIDE CRTAB 20 MEQ TABCR PO SCH (09:49)
[2025-07-03] MEDS: BUMETANIDE 3 MG in SYRINGE 0 ML IV ONE (09:50)
--- NOTE | 2025-07-03 18:29 | Hospitalist Progress Note ---
Date of Service July 03, 2025 Assessment & Plan (1) Septic shock: (2) Bacteremia: (3) Cellulitis: (4) Multiple myeloma: (5) Transaminitis: (6) JOSE (acute kidney injury): (7) Encephalopathy: (8) Syncope: (9) Hypokalemia: (10) Witnessed episode of apnea: (11) Acute respiratory failure with hypoxia: (12) Hypothyroidism: (13) Type 2 diabetes mellitus: (14) Morbid obesity with BMI of 45.0-49.9, adult: Plan 59yo male with multiple myeloma on Revlimid/dexamethasone presented to the ER with right lower extremity cellulitis, fever, and hypotension. #Septic shock / Strep dysgalactiae Bacteremia - -Source - SEVERE RLE cellulitis -CT RLE without nec fasc or abscess -required ICU care for his septic shock; was on levophed from 06/23 to 06/24 then stopped -required stress dose steroids in ICU - was weaned off steroids, but patient reported he was taking dexamethasone daily at home (4mg daily) I restarted dex at 4mg/day starting 07/01 -repeat blood cx's 06/27 negative -would leave him on the 4mg/day of dex and have him f/u with the oncologist who prescribes it to him #severe RLE cellulitis - IMPROVING/resolving nicely - -06/28 -- antibiotics broadened to IV daptomycin & Zosyn due to worsening RLE exam findings; thus day #6 of these 2 abx -defer abx selection to infectious diseases but they advise to continue both for now given the severity of the cellulitis -with significant improvement in redness and overall appearance this weekend suspect we will be able to narrow the abx early this week -s/p consult by Dr Daniels from podiatry; portion of the distal RLE was debrided; cultures sent but these remain negative; appreciate his assistance -cont local wound care and dressings -he will need to follow with a wound care center in [place] #Right sided congestive heart failure - newly diagnosed - -ongoing but improved -Na level 135 == redose bumex today - give 3mg IV x 1 -repeat labs am tomorrow -suspect right-sided CHF is due to untreated/undiagnosed ISHMAEL/OHS #Type 2 diabetes mellitus - -new diagnosis -HbA1C 7.8% -Appreciate pharmacy glycemic team -cont basal-bolus insulin -glycemic control is very good -would add metformin xr qd-BID if creatinine remains stable to see if we can get him off some of the insulin #JOSE - -likely 2nd to sepsis-associated ATN -peak Cr 1.8 -Cr 1.4 today -cont supportive care -BMP am -baseline Cr close to 1 but patient not entirely sure #h/o Hypertension, but now orthostatic in the setting of attempts at diuresis - -orthostasis resolved/dizziness resolved -hold coreg due to tendencies towards hypotension, bradycardia (sinus) and dizziness -added midodrine 2.5mg TID given his dizziness and +orthostatics -titrated to 5mg TID -dexamethasone helping with orthostasis as well #Syncope - -Suspect due to septic shock as BPs were dangerously low at time of ER presentation -echo with preserved EF, but has significant right-sided CHF; thus he is preload dependent -probably element of Addisonian features given the chronic dexamethasone use #Multiple Myeloma - -Holding Revlimid -continue allopurinol #Acute respiratory failure with hypoxia / Witnessed apneic episodes (in the ER) - resolved - -encourage CPAP with sleep while here but he is not using it; "I can't do it" -needs sleep study as outpatient but not sure he will proceed with such #Hypothyroidism -TSH 1.525 -Continue levothyroxine #Hypokalemia / hypomagnesemia - -replaced/resolved #Hyponatremia - -resolved -Na level today 135 -BMP am for stability #morbid obesity - BMI 47/48 #DVT Proph - -heparin 7500 TID given morbid obesity cont PT/OT dispo? home? rehab? has not walked in hallway since admission Admission and Anticipated Discharge Date Admission Date: June 23, 2025 Subjective no events ambulating to the bathroom more comfortably no significant pain RLE today no dizziness eating well pt with multiple friends at bedside pt states that there is a wound care clinic in [place] where he lives Review of Systems 2 Review of Systems: cv - no cp, edema of legs improved pulm - no dyspnea or DEL ROSARIO GI - no N/V; no diarrhea Physical Exam 2 Physical Exam: gen - obese, NAD, lying in bed, looks well today neck - no JVD mouth - MMM heart - RRR, s1 s2, no murmur lungs - CTA b/l abd - soft NT ND BS+ ext - RLE - <2+ edema from foot to right thigh; light pink erythema of thigh and remainder of leg including the foot (see photos); dressings removed with nurse; blistering on lester and medial ankle much improved; previously debrided skin lateral distal lester stable; other areas of denuded skin stable; 1+ edema left leg, stasis changes left lester; pulses b/l feet 2+ psych - a/o x 3 Results & Data Results & Data Vital Signs (Past 12 Hours) Vital Signs Temp Pulse Resp BP BP Pulse Ox O2 Del Method 07/03/25 14:22 36.7 C 52 L 18 127/76 96 Room Air 07/03/25 07:35 Room Air 07/03/25 07:29 36.6 C 46 L 18 107/64 98 Room Air Laboratory Results Laboratory Results - last 24 hr 07/02/25 07/03/25 07/03/25 20:00 06:31 07:31 Sodium 135 L Potassium 3.6 Chloride 99 Carbon Dioxide 27 Anion Gap 9 BUN 31 H Creatinine 1.47 H Est Cr Clr Drug Dosing 88.7 eGFR 55.29 BUN/Creatinine Ratio 21.1 H Glucose 107 H POC Glucose 155 H 103 H Calcium 8.5 L Magnesium 2.1 07/03/25 07/03/25 11:26 17:04 Sodium Potassium Chloride Carbon Dioxide Anion Gap BUN Creatinine Est Cr Clr Drug Dosing eGFR BUN/Creatinine Ratio Glucose POC Glucose 124 H 132 H Calcium Magnesium Microbiology 06/28/25 12:30 Ankle,Right Gram Stain - Final 06/28/25 12:30 Ankle,Right Aerobic and Anaerobic Culture - Final Low counts mixed probable skin microbiota. No further identifications or sensitivities to follow. 06/28/25 12:30 Leg,Right Gram Stain - Final 06/28/25 12:30 Leg,Right Aerobic and Anaerobic Culture - Final No growth 06/27/25 12:25 Blood Aerobic Blood Culture - Final No growth in Aerobic bottle after 5 days. 06/27/25 12:25 Blood Anaerobic Blood Culture - Final No growth in Anaerobic bottle after 5 days. 06/27/25 12:07 Blood Aerobic Blood Culture - Final No growth in Aerobic bottle after 5 days. 06/27/25 12:07 Blood Anaerobic Blood Culture - Final No growth in Anaerobic bottle after 5 days. 06/23/25 15:04 Blood Aerobic Blood Culture - Final No growth in Aerobic bottle after 5 days. 06/23/25 15:04 Blood Anaerobic Blood Culture - Final Streptococcus dysgalactiae 06/23/25 14:36 Blood Aerobic Blood Culture - Final Streptococcus dysgalactiae 06/23/25 14:36 Blood Anaerobic Blood Culture - Final Streptococcus dysgalactiae Diagnostic Findings These photos are from 07/03/25 bedside visit -- significant improvement in erythema, warmth, edema of all regions of RLE PG Care Time/CCT Total # of Minutes Spent Total Time Spent with Patient: Total time spent is greater than 50% in coordination of care (as documented) at patient's floor/unit and/or counseling patient: Coding Level of Care Code 18434 SUB INP/OBS CARE 2/35MIN Diagnoses Septic shock A41.9; R65.21 Bacteremia R78.81 Cellulitis L03.90 Multiple myeloma C90.00 Transaminitis R74.01 JOSE (acute kidney injury) N17.9 Encephalopathy G93.40 Syncope R55 Hypokalemia E87.6 Witnessed episode of apnea R06.81 Acute respiratory failure with hypoxia J96.01 Hypothyroidism E03.9 Type 2 diabetes mellitus E11.9 Morbid obesity with BMI of 45.0-49.9, adult E66.01; Z68.42
[2025-07-04 07:21] LABS: Anion Gap 7.0 (3-11); Blood Urea Nitrogen 31.0 mg/dl (6-23); Calcium 8.5 mg/dl (8.6-10.3); Carbon Dioxide 28.0 mmol/L (21-32); Chloride 102.0 mmol/L (98-107); Creatine Kinase 26.0 U/L (30-223); Creatinine Clr Calc Pharmacy 84.5 ml/min; Glucose 104.0 mg/dl (70-99(Fasting)); Potassium 3.6 mmol/L (3.5-5.1); Sodium 137.0 mmol/L (136-145)
--- NOTE | 2025-07-04 07:32 | Pharmacy Report ---
Pharmacy Glycemic Short Note 2 - Date of Service July 04, 2025 - Glycemic Short BSG Results (Last 24 hours): 07/03/25 07/03/25 07/03/25 06:31 07:31 11:26 Glucose 107 H POC Glucose 103 H 124 H 07/03/25 07/03/25 07/04/25 17:04 20:20 06:41 Glucose 104 H POC Glucose 132 H 142 H OUTPATIENT ANTIDIABETIC REGIMEN: * N/A * A1c 7.8% 06/24/25 ASSESSMENT: 07/04: * Blood sugars have been well-controlled, patient receiving ~38 units of insulin/day, 10 units from basal. * Fasting blood sugar controlled today at 104 mg/dL. * Patient remains on Dexamethasone 4mg PO Daily, to follow up with oncologist on high daily dosing. * New DM dx - consult CDE. Start Metformin XR. Loosen NovoLog parameters slightly. * Patient remains on IV Daptomycin + Zosyn for RLE cellulitis + Strep bacteremia. 07/01: * Blood sugars have been well-controlled (ranging 137-159 mg/dL yesterday) * Fasting blood sugar controlled today at 114 mg/dL * Do not anticipate any changes to glycemic regimen today 06/29: * Terry received 38 units of insulin yesterday (10 were basal) * Fasting BSG this Am within goal range, continue current basal regimen. * No changes to NovoLog at this time. He is currently on daptomycin/Zosyn, no other glycemic stressors noted. 06/27 * Patient received total of 53 units of insulin yesterday, of which 20 units were basal * Fasting BSG 145 mg/dL - will continue Lantus scale * No change to CF/CR 06/24 * Patient admitted septic shock- cellulitis with strep bacteremia. * BSG on labs overnight 378 mg/dL-- on levophed which is being titrated off. On hydrocortisone 50 mg q6h * Insulin infusion initially deferred d/t Novolog dose administered prior to consult. Novolog parameters were adjusted to weight stress 2- actual body weight * BSG down to 190 mg/dL on 0800 check. Breakfast ordered * Will continue with basal/bolus for now as pressors are being weaned off and BSG has improved. * Will initiate weight stress 2 basal- adjusted body weight for now. Monitor trend * Lower threshold to begin insulin infusion PLAN FOR INPATIENT GLYCEMIC CONTROL: * Metformin XR 500mg PO daily x3 days, then 500mg BID with meals * Basal insulin * Lantus 10 units SQ daily * Bolus insulin * NovoLog per scale ACHS or Q6hrs while NPO * Goal Range: Low 110 mg/dL - High 140 mg/dL * Correction Factor: 25 mg/dL/unit * Nutritional / Prandial insulin per carb ratio of 1 unit per 7 grams CHO consumed
[2025-07-04] MEDS: BUMETANIDE 1 MG TAB PO SCH (08:35)
--- NOTE | 2025-07-04 09:38 | Infectious Disease Progress Nt ---
Date of Service July 04, 2025 Assessment & Plan (1) Cellulitis of right lower extremity: (2) Streptococcal bacteremia: Plan Problems: #RLE cellulitis #Strep dysgalactiae bacteremia #MM on Revlimid and dex Micro: 06/28 R ankle wound cx: low counts mixed probable skin microbiota. GS--few GPCs 06/28 R leg wound cx: NGTD. GS--no org 06/27 BCx x2: NGTD 06/23 BCx x2: Strep dysgalactiae in 3/4 bottles (S penicillin, amp, ceftriaxone, levo, tetra) Abx: Cefazolin 06/27 - 06/28 Ceftriaxone 06/24 - 06/26 Metronidazole 06/24 - 06/26 Zosyn 06/23 - 06/24, 06/28 - present Cefepime 06/23 Dapto 06/23, 06/28 - present 59 yo M with MM (on Revlimid and dexamethasone) who presented on 06/23 with RLE pain and erythema, found to have RLE cellulitis and Strep dysgalactiae bacteremia. He reports an initial injury with hitting his leg with a rock 2 days prior. His symptoms have been getting progressively worse, with fevers and chills. While a friend drove him to the ED, pt had chest pain and shortness of breath with two syncopal episodes. On presentation, pt was afebrile, VSS. Noted on exam to have erythema and swelling of the RLE with a small scabbed area on the lateral side. Labs showed WBC 3.09, Cr 1.52, lactate 4.2, AST 55, ALT 68, procal 0.96. CTA chest with no PE, no consolidation. XR R tib/fib with no fractures or osteomyelitis, with RLE soft tissue swelling. RLE venous doppler with no DVT. He was started on dapto and cefepime in the ED, and admitted to the ICU for hypotension requiring pressors. Cefepime switched to Zosyn. Started on stress dose steroids. CT RLE without contrast showed subcutaneous edema without further evidence of suggest nec fasc. BCx growing Strep dysgalactiae in 3/4 bottles. Antibiotics now narrowed to ceftriaxone. Weaned off pressors on 8 AM. TTE with no vegetations. Narrowed to cefazolin on 06/27. However, although pt remains afebrile and stable, no improvement in RLE erythema, swelling. Procalcitonin has gone up from 0.96 on admission, to 4.73 on 06/27, 3.18 on 06/28. Broadened antibiotics back to dapto and Zosyn on 06/28. Podiatry consulted and performed debridement of nonviable tissue, sent for culture, thus far only growing low counts of mixed probable skin microbiota. As of 06/30, R thigh erythema resolving, but still with significant erythema, swelling, and blistering skin. Cellulitis now improving. Recommendations: -Narrowed dapto and Zosyn to cefazolin 2 g IV q8h -Can continue antibiotics through 07/07 to complete a total 14 day course. Can transition from cefazolin to cefadroxil 500 mg PO BID if pt discharging -Elevation of RLE to help with erythema, edema Discussed with Dr. Orlando. Will sign off. Admission and Anticipated Discharge Date Admission Date: June 23, 2025 Subjective This patient recommendation is based on a telemedicine consult request which was completed asynchronously through chart review and information provided by the primary physician. The patient was not seen or examined today. The evaluation is consultative in nature and all patient care and treatment decisions can either be accepted or rejected by the patient's primary hospital-based treating physician using their own independent medical judgment for their patient. Time Spent Reviewing Chart: 11 - 20 minutes Cellulitis improving Results & Data Vital Signs (Past 12 Hours) Vital Signs Temp Pulse Pulse Resp BP BP Pulse Ox 07/04/25 08:06 36.5 C 48 L 19 119/74 98 07/04/25 07:20 07/04/25 07:12 36.6 C 47 L 16 131/74 97 07/03/25 22:19 36.6 C 43 L 18 120/61 94 07/03/25 21:50 O2 Del Method 07/04/25 08:06 Room Air 07/04/25 07:20 Room Air 07/04/25 07:12 Room Air 07/03/25 22:19 Room Air 07/03/25 21:50 Room Air Laboratory Results BMP 07/04/25 06:41 Sodium 137 Potassium 3.6 Chloride 102 Carbon Dioxide 28 BUN 31 H Creatinine 1.55 H Glucose 104 H Calcium 8.5 L Cardiac Enzymes 07/04/25 Range/Units 06:41 Total Creatine Kinase 26 L (30-223) U/L
--- NOTE | 2025-07-04 18:08 | Hospitalist Progress Note ---
Date of Service July 04, 2025 Assessment & Plan (1) Septic shock: (2) Bacteremia: (3) Cellulitis: (4) Multiple myeloma: (5) Transaminitis: (6) JOSE (acute kidney injury): (7) Encephalopathy: (8) Syncope: (9) Hypokalemia: (10) Witnessed episode of apnea: (11) Acute respiratory failure with hypoxia: (12) Hypothyroidism: (13) Type 2 diabetes mellitus: (14) Morbid obesity with BMI of 45.0-49.9, adult: Plan 59yo male with multiple myeloma on Revlimid/dexamethasone presented to the ER with right lower extremity cellulitis, fever, and hypotension. #Septic shock / Strep dysgalactiae Bacteremia - -Source - SEVERE RLE cellulitis -CT RLE without nec fasc or abscess -required ICU care for his septic shock; was on levophed from 06/23 to 06/24 then stopped -required stress dose steroids in ICU - was weaned off steroids, but patient reported he was taking dexamethasone daily at home (4mg daily) I restarted dex at 4mg/day starting 07/01 -repeat blood cx's 06/27 negative -would leave him on the 4mg/day of dex and have him f/u with the oncologist who prescribes it to him -did auto travel counselor him that 4mg/dex is not a small dose of steroid and that, if he remains on steroids daily long-term, attempts should be made to wean it lower - 1mg or 2mg/day if possible #severe RLE cellulitis - IMPROVING/resolving nicely - -06/28 -- antibiotics broadened to IV daptomycin & Zosyn due to worsening RLE exam findings; thus day #6 of these 2 abx -defer abx selection to infectious diseases but they advise to continue both for now given the severity of the cellulitis -with significant improvement in redness and overall appearance this weekend suspect we will be able to narrow the abx early this week -s/p consult by Dr Daniels from podiatry; portion of the distal RLE was debrided earlier in the stay; cultures sent but these remain negative; appreciate his assistance -he debrided the RLE lester again today, 07/04 -cont local wound care and dressings -he will need to follow with a wound care center in [place] (there is one available at the hospital there) #Right sided congestive heart failure - newly diagnosed - -approaching euvolemia -place on bumex 2mg PO qam with ultimate goal of resuming home dosing of 2mg BID -suspect right-sided CHF is due to untreated/undiagnosed ISHMAEL/OHS -will need cardiology f/u in [place] hometown #Type 2 diabetes mellitus - -new diagnosis -HbA1C 7.8% -Appreciate pharmacy glycemic team -cont basal-bolus insulin -glycemic control is very good -would add metformin xr qd with goal of BID dosing #JOSE - -likely 2nd to sepsis-associated ATN -peak Cr 1.8 -cont supportive care -BMP am -baseline Cr close to 1 but patient not entirely sure #h/o Hypertension, but now orthostatic in the setting of attempts at diuresis - -orthostasis resolved/dizziness resolved -hold coreg due to tendencies towards hypotension, bradycardia (sinus) and dizziness -added midodrine 2.5mg TID given his dizziness and +orthostatics -titrated to 5mg TID -dexamethasone helping with orthostasis as well #Syncope - -Suspect due to septic shock as BPs were dangerously low at time of ER presentation -echo with preserved EF, but has significant right-sided CHF; thus he is preload dependent -probably element of Addisonian features given the chronic dexamethasone use #Multiple Myeloma - -Holding Revlimid -continue allopurinol #Acute respiratory failure with hypoxia / Witnessed apneic episodes (in the ER) - resolved - -encourage CPAP with sleep while here but he is not using it; "I can't do it" -needs sleep study as outpatient but not sure he will proceed with such #Hypothyroidism -TSH 1.525 -Continue levothyroxine #Hypokalemia / hypomagnesemia - -replaced/resolved #Hyponatremia - -resolved -Na level today 137 -BMP am for stability #morbid obesity - BMI 47/48 #DVT Proph - -heparin 7500 TID given morbid obesity cont PT/OT hopefully can d/c home tomorrow with home health services he will need a hospital bed for his home for the following reasons: 1. due to the severity of his RLE wounds he requires a hospital bed so that he can attain positioning that is typically not feasible with an ordinary bed; this should help with pain relief 2. due to CHF he requires head of bed to be elevated; this cannot be achieved with ordinary bed Admission and Anticipated Discharge Date Admission Date: June 23, 2025 Subjective no events overnight had debridement of his RLE by Dr Daniels today from podiatry continues to improve from ambulatory standpoint can put weight on RLE easily now and ambulate to bathroom w/o issue denies dyspnea denies dizziness or lightheadedness appetite is back to normal Review of Systems Review of Systems: gen - no fevers or chills cv - no cp; edema legs continues to improve pulm - no cough or dyspnea GI - some diarrhea Physical Exam Physical Exam: gen - obese, NAD neck - no JVD mouth - MMM heart - RRR, s1 s2, no murmur lungs - CTA b/l abd - soft NT ND BS+ ext - RLE - 1-2+ edema from foot to right thigh; light pink erythema of thigh (m edial aspect) noted; dressings intact over the right lester; <1+ edema left leg, stasis changes left lester; pulses b/l feet 2+ psych - a/o x 3 Results & Data Results & Data Vital Signs (Past 12 Hours) Vital Signs Temp Pulse Pulse Resp BP BP Pulse Ox 07/04/25 15:51 36.6 C 67 18 124/75 96 07/04/25 12:02 36.6 C 50 L 19 97 07/04/25 08:06 36.5 C 48 L 19 119/74 98 07/04/25 07:20 07/04/25 07:12 36.6 C 47 L 16 131/74 97 O2 Del Method 07/04/25 15:51 Room Air 07/04/25 12:02 Room Air 07/04/25 08:06 Room Air 07/04/25 07:20 Room Air 07/04/25 07:12 Room Air Laboratory Results Laboratory Results 07/04/25 07/04/25 07/04/25 06:41 07:50 11:31 Sodium 137 Potassium 3.6 Chloride 102 Carbon Dioxide 28 Anion Gap 7 BUN 31 H Creatinine 1.55 H Est Cr Clr Drug Dosing 84.5 eGFR 51.88 BUN/Creatinine Ratio 20.0 Glucose 104 H POC Glucose 108 H 125 H Calcium 8.5 L Total Creatine Kinase 26 L Diagnostic Findings Microbiology 06/28/25 12:30 Ankle,Right Gram Stain - Final 06/28/25 12:30 Ankle,Right Aerobic and Anaerobic Culture - Final Low counts mixed probable skin microbiota. No further identifications or sensitivities to follow. 06/28/25 12:30 Leg,Right Gram Stain - Final 06/28/25 12:30 Leg,Right Aerobic and Anaerobic Culture - Final No growth 06/27/25 12:25 Blood Aerobic Blood Culture - Final No growth in Aerobic bottle after 5 days. 06/27/25 12:25 Blood Anaerobic Blood Culture - Final No growth in Anaerobic bottle after 5 days. 06/27/25 12:07 Blood Aerobic Blood Culture - Final No growth in Aerobic bottle after 5 days. 06/27/25 12:07 Blood Anaerobic Blood Culture - Final No growth in Anaerobic bottle after 5 days. 06/23/25 15:04 Blood Aerobic Blood Culture - Final No growth in Aerobic bottle after 5 days. 06/23/25 15:04 Blood Anaerobic Blood Culture - Final Streptococcus dysgalactiae 06/23/25 14:36 Blood Aerobic Blood Culture - Final Streptococcus dysgalactiae 06/23/25 14:36 Blood Anaerobic Blood Culture - Final Streptococcus dysgalactiae PG Care Time/CCT Total # of Minutes Spent Total Time Spent with Patient: Total time spent is greater than 50% in coordination of care (as documented) at patient's floor/unit and/or counseling patient: Coding Level of Care Code 43269 SUB INP/OBS CARE 2/35MIN Diagnoses Septic shock A41.9; R65.21 Bacteremia R78.81 Cellulitis L03.90 Multiple myeloma C90.00 Transaminitis R74.01 JOSE (acute kidney injury) N17.9 Encephalopathy G93.40 Syncope R55 Hypokalemia E87.6 Witnessed episode of apnea R06.81 Acute respiratory failure with hypoxia J96.01 Hypothyroidism E03.9 Type 2 diabetes mellitus E11.9 Morbid obesity with BMI of 45.0-49.9, adult E66.01; Z68.42
--- NOTE | 2025-07-04 23:37 | Podiatry Progress Note ---
Date of Service July 04, 2025 Assessment & Plan (1) Cellulitis of right lower extremity: (2) Erysipelas of right lower extremity: (3) Streptococcal bacteremia: (4) Type 2 diabetes mellitus: (5) Stasis ulcer of left lower extremity: Plan Cellulitis/erysipelas right lower extremity: Large geographic ulceration right lower extremity -Soft tissue for culture right lateral leg. Culture swab of right medial ankle wound. - No growth to date. - Patient evaluated by infectious disease with recommendation to narrow Dapto and Zosyn to cefazolin 2 g IV every 8 hours to be continued through 07/07/2025. - We debrided as detailed below sloughing epithelial tissue from the anterior medial and lateral leg wound. Wound dressing changed. dressed with Xeroform to minimize adhesions followed by ABD pads and Sharron. Dressed the right lower extremity with [place] bandage from the base of the toes to the proximal leg. Continue change dressing twice daily and as needed. - Continue to elevate right lower extremity while at rest. Patient's wound has made significant improvement over the last 72 hours and is okay for discharge from podiatry standpoint. Patient should establish close follow-up with wound care center near [facility] for close monitoring of the wound in addition to home health care for dressing changes. Selective Debridement: Indication:Removal of nonviable tissue to promote healing Pre-op diagnosis: Right lower extremity wound Post-op diagnosis: Same Procedure: Selective debridement right lower extremity Surgeon: Damon Daniels DPM Anesthesia: None Bleeding:Minimal Disposition: Tolerated well Procedure: Informed consent obtained, Time Out taken. Patient understands and agrees to procedure. Selective debridement was carried out of right leg wound consisting of sloughing epithelial tissue was carried out utilizing a curette and 15 blade. Anesthesia-none. Patient tolerated the procedure well. Bleeding-minimal. Controlled with-direct pressure. Post-debridement measurements: [id number] cm. A total of 1440 cm2 were debrided. Admission and Anticipated Discharge Date Admission Date: June 23, 2025 Subjective Patient resting comfortably in bedside chair with legs elevated on foot rest. Dressing was changed earlier today around 5 AM. Patient reports decreased pain to the right lower extremity over the weekend. He reports feeling better in general with decreased nausea and malaise. Reports significant decreased micah inage redness and swelling to the right leg since last seen. Review of Systems Review of Systems: Denies nausea, vomiting, fever, chills. Denies shortness of breath, chest pain. All other systems reviewed and negative unless detailed above. Physical Exam Physical Exam: Right lower extremity: Erythema and edema to the right lower extremity have significantly reduced over the past 72 hours. There is no longer any erythema extending to the dorsum of the right foot and periwound erythema is nearly resolved. Significant decreased in oc-colored serous drainage to the dressing today. Minimal active serous drainage on wound evaluation. Sloughing epithelial tissue is debrided as detailed below exposing granular dermal tissue. No malodor. No purulent drainage. Previously debrided lateral wound is starting to epithelialize with no active drainage. Results & Data Results & Data Vital Signs (Past 12 Hours) Vital Signs Temp Pulse Pulse Resp BP Pulse Ox O2 Del Method 07/04/25 22:27 36.6 C 52 L 18 128/70 95 Room Air 07/04/25 15:51 36.6 C 67 18 124/75 96 Room Air 07/04/25 12:02 36.6 C 50 L 19 97 Room Air Coding Level of Care Code 91306 SUB INP/OBS CARE 235MIN Diagnoses Cellulitis of right lower extremity L03.115 Erysipelas of right lower extremity A46 Streptococcal bacteremia R78.81; B95.5 Type 2 diabetes mellitus E11.9 Stasis ulcer of left lower extremity I83.029; L97.929 Comment [id number]
[2025-07-05 08:32] LABS: Hematocrit (blood only) 32.5 % (42.0-52.0); Hemoglobin 10.6 g/dl (14.0-18.0); Mean Corpuscular Hemoglobin 30.4 pg (25.0-34.0); Mean Corpuscular Volume 93.1 fL (80.0-100.0); Platelet Count 562 K/uL (130-400); RDW Standard Deviation 58.8 fL (36.4-46.3); Red Blood Count 3.49 M/uL (4.70-6.10); White Blood Count 12.69 K/ul (4.8-10.8)
[2025-07-05 08:49] LABS: Anion Gap 7.0 (3-11); Blood Urea Nitrogen 27.0 mg/dl (6-23); Calcium 8.6 mg/dl (8.6-10.3); Carbon Dioxide 27.0 mmol/L (21-32); Chloride 105.0 mmol/L (98-107); Creatinine Clr Calc Pharmacy 91.1 ml/min; Glucose 104.0 mg/dl (70-99(Fasting)); Potassium 4.0 mmol/L (3.5-5.1); Sodium 139.0 mmol/L (136-145)
[2025-07-05 10:39] LABS: Cdiff Toxin B Gene (2yr or >) Negative Cdiff Gene (Neg)
--- NOTE | 2025-07-05 13:14 | Discharge Summary ---
Discharge Summary Date of Service July 05, 2025 Principal Dx & Hospital Course #1 = Principal Diagnosis (1) Septic shock: (2) Bacteremia: (3) Cellulitis: (4) Multiple myeloma: (5) Transaminitis: (6) JOSE (acute kidney injury): (7) Encephalopathy: (8) Syncope: (9) Hypokalemia: (10) Witnessed episode of apnea: (11) Acute respiratory failure with hypoxia: (12) Hypothyroidism: (13) Type 2 diabetes mellitus: (14) Morbid obesity with BMI of 45.0-49.9, adult: Plan 59yo male with multiple myeloma on Revlimid/dexamethasone presented to the ER with right lower extremity cellulitis, fever, and hypotension. #Septic shock / Strep dysgalactiae Bacteremia - -Source - SEVERE RLE cellulitis -CT RLE without nec fasc or abscess -required ICU care for his septic shock; was on levophed from 06/23 to 06/24 then stopped -required stress dose steroids in ICU - was weaned off steroids, but patient reported he was taking dexamethasone daily at home (4mg daily) I restarted dex at 4mg/day starting 07/01 -repeat blood cx's 06/27 negative -would leave him on the 4mg/day of dex and have him f/u with the oncologist who prescribes it to him #severe RLE cellulitis - IMPROVING/resolving nicely - -06/28 -- antibiotics broadened to IV daptomycin & Zosyn due to worsening RLE exam findings; thus day #6 of these 2 abx -defer abx selection to infectious diseases but they advise to continue both for now given the severity of the cellulitis -with significant improvement in redness and overall appearance this weekend suspect we will be able to narrow the abx early this week -s/p consult by Dr Dnaiels from podiatry; portion of the distal RLE was debrided; cultures sent but these remain negative; appreciate his assistance -cont local wound care and dressings -he will need to follow with a wound care center in [place] #Right sided congestive heart failure - newly diagnosed - -ongoing but improved -Na level 135 == redose bumex today - give 3mg IV x 1 -repeat labs am tomorrow -suspect right-sided CHF is due to untreated/undiagnosed ISHMAEL/OHS #Type 2 diabetes mellitus - -new diagnosis -HbA1C 7.8% -Appreciate pharmacy glycemic team -cont basal-bolus insulin -glycemic control is very good -would add metformin xr qd-BID if creatinine remains stable to see if we can get him off some of the insulin #JOSE - -likely 2nd to sepsis-associated ATN -peak Cr 1.8 -Cr 1.4 today -cont supportive care -BMP am -baseline Cr close to 1 but patient not entirely sure #h/o Hypertension, but now orthostatic in the setting of attempts at diuresis - -orthostasis resolved/dizziness resolved -hold coreg due to tendencies towards hypotension, bradycardia (sinus) and dizzi ness -added midodrine 2.5mg TID given his dizziness and +orthostatics -titrated to 5mg TID -dexamethasone helping with orthostasis as well #Syncope - -Suspect due to septic shock as BPs were dangerously low at time of ER presentation -echo with preserved EF, but has significant right-sided CHF; thus he is preload dependent -probably element of Addisonian features given the chronic dexamethasone use #Multiple Myeloma - -Holding Revlimid -continue allopurinol #Acute respiratory failure with hypoxia / Witnessed apneic episodes (in the ER) - resolved - -encourage CPAP with sleep while here but he is not using it; "I can't do it" -needs sleep study as outpatient but not sure he will proceed with such #Hypothyroidism -TSH 1.525 -Continue levothyroxine #Hypokalemia / hypomagnesemia - -replaced/resolved #Hyponatremia - -resolved -Na level today 135 -BMP am for stability #morbid obesity - BMI 47/48 #DVT Proph - -heparin 7500 TID given morbid obesity cont PT/OT dispo? home? rehab? has not walked in hallway since admission Admission HPI Per Admitting Provider Terry Agarwal is a 59 year old male with multiple myeloma from [place] in the area for work who presents to the ER with right leg pain and erythema. He reports initial injury with hitting his leg with a rock 2 days ago and started getting erythematous. Progressively getting worse since then with associated fever and chills. No abdominal pain, diarrhea, nausea or vomiting. His main concern is he feels thirsty and wants to drink water. Today while his friend drove him to the hospital and reportedly having chest pain and shortness of breath on the way with two syncopal episodes. He reports having myeloma and on Revlimid and dexamethasone for this which he last took on Friday. He is under Dr Armstrong from [place]. He denies any other medical history including obstructive sleep apnea, heart attack, heart failure, stroke or diabetes. No prior severe infections in the past and no history of MRSA. Discharge Exam gen - obese, NAD, lying in bed, looks well today neck - no JVD mouth - MMM heart - RRR, s1 s2, no murmur lungs - CTA b/l abd - soft NT ND BS+ ext - RLE - <2+ edema from foot to right thigh; light pink erythema of thigh and remainder of leg including the foot (see photos); dressings removed with nurse; blistering on lester and medial ankle much improved; previously debrided skin lateral distal lester stable; other areas of denuded skin stable; 1+ edema left leg, stasis changes left lester; pulses b/l feet 2+ psych - a/o x 3 Discharge Plan Discharge Items Patient Disposition: Home - Home Health Services Reason For Visit: SEPSIS, CELLULITIS Discharge Diagnosis: 1. Strep bacteremia (bloodstream infection caused by strep bacteria) - resolved 2. SEVERE right leg cellulitis - slowly improving 3. Septic Shock due to #1/#2 - resolved 4. Elevated Creatinine (kidney function level) - discharge creatinine 1.44 5. Severe wounds of right leg due to severe cellulitis - wound care follow-up needed 6. New onset type 2 diabetes; hemoglobin a1c 7.8% 7. Right-sided (right ventricular) congestive heart failure - cardiology follow-up needed 8. Antibiotic-associated diarrhea - c diff testing negative 9. Mild aortic root enlargement (4.1cm) - yearly surveillance with echocardiogram needed 10. Multiple myeloma Activity: As commented below Activity Comment: gradually increase activities as tolerated Bathing Comment: ok to shower, but keep right leg dressings clean/intact Driving/Machine Use: NO DRIVING if taking oxycodone pain killer medicine Non-emergency contact: Primary Care Provider and Specialist Call non-emergency contact if: you have any medication questions, your symptoms worsen, your pain is not controlled, you have a fever, your wound has increased redness, your wound has increased drainage and your wound pain has increased Follow-up/Referrals: Andres Arnold [Other] - 07/08/25 10:20 am Wound Clinic, [facility] [Other] - 07/07/25 1:45 pm Diet: Carb Consistent or DM2 and Heart Healthy Fluids: 2000ml (8 cups) Addtl Attending Provider Instructions: Mr Agarwal, You were hospitalized due to septic shock (dangerously low blood pressure due to infection) from a severe skin infection, also known as "cellulitis." You required ICU care and medicine to keep your blood pressure in a normal range. The shock ultimately resolved. Blood cultures grew out streptococcus ("strep"), one of the most common causes of skin infection. You received IV antibiotics during your entire stay for the blood infection and skin infection. The right leg cellulitis caused severe edema which precipitated blistering of the skin. Dr Damon Daniels from podiatry saw you and performed debridement several times of the unhealthy skin on the lester region of the right leg . Infectious diseases was involved to help with antibiotic selection for your severe infections. Edema was treated with IV diuretics. With all of the above you slowly improved during the hospital stay. In addition, we noted that your blood sugars were high. Hemoglobin a1c was checked and found to be high at 7.8% which means that you are a type 2 diabetic. You have been started on oral medicine to control your blood sugars. Echocardiogram of your heart showed that the left side of your heart is working normally, but the right side of your heart is weaker than it should be. This is called right-sided congestive heart failure (see handout). We suspect you have underlying sleep apnea which, if severe and untreated, can lead to right-sided congestive heart failure. Please ask your family doctor for a referral to cardiology in your town. We have placed your echocardiogram on a CD for you. The edema in your legs is likely being driven to some extent by the right-sided congestive heart failure. Finally, due to having diarrhea, we checked a stool test for c diff bacteria and it returned NEGATIVE. Your diarrhea is due to all the recent antibiotics. Recommendations - 1. antibiotics - cefadroxil 500mg twice daily x 3 days, first dose TONIGHT. Most common side effect - diarrhea. 2. continue your dexamethasone steroid at 4mg daily for now. Please talk to your oncologist about the daily dexamethasone use. Ideally in the future you are taking a smaller dose of this steroid or not taking it at all unless you need it around the time of your chemotherapy treatments. Again talk to your oncologist about this. 3. check your blood sugars twice daily if possible. Keep a log of your sugars; show the log to your family doctor. Check the blood sugar every morning when you wake up, and then one other time during the day (before bed, before your evening meal, etc). 4. for diabetes take - metformin XR 500mg twice daily with meals. Most common side effects - stomach upset, nausea, loose stool in some cases. 5. potassium supplement - take 20meq twice daily. 6. magnesium supplement - take 400mg twice daily. 7. for right leg pain - oxycodone 5mg every 6 hours as needed. DO NOT DRIVE A CAR or DRINK ALCOHOL while taking this narcotic pain killer medicine. The pain medicine can make you drowsy, and it can also constipate you. In some cases it can make you a little confused or "out of it." Be cautious when taking it. 8. for dizziness - midodrine 5mg three times daily; next dose is about 5-6pm later today. Hopefully you will be able to stop this in the future; talk to your family doctor about it. 9. HOLD your lenalidomide for now; please contact your oncologist, tell them about your infection & hospital stay at [facility], and they will guide you as to when to resume this. 10. WOUND CARE INSTRUCTIONS - Change the dressings on your right leg DAILY and as needed. Next dressing change is tomorrow morning, 07/06/25. -remove the ANGELIC wrap and then all old dressings; discard the old dressings -place the yellow Xeroform gauze over all of the open areas on the skin; it is ok for the edges of each sheet of Xeroform to overlap -then cover the Xeroform with "ABD" dressings -then wrap the entire leg with "Kerlix" gauze dressing; secure the Kerlix with a small piece of medical tape -then wrap the leg with ANGELIC wrap as we have been doing here at the hospital -keep the dressings clean/dry during showers; no tub baths at this time -it is possible that the Wound Clinic in [place] may change the type of dressings 11. Elevate your right leg when sitting in a chair, on the couch, etc. This helps with edema/swelling. Follow-up - see separate section -in addition, keep any prior appointment with your oncologist Return to any hospital if - * you have fevers over 100 degrees * you have worsening redness, drainage, swelling, pain, odor, etc from the right leg * you have worsening shortness of breath * you have worsening diarrhea (3-4 or more loose stools in 24 hours) * any other concerns It was our pleasure to care for you at [facility]! -Lg [place], [facility] medicine Pending Studies at Discharge: No Stand-Alone Forms: My [facility], Smoking Cessation Medications and DC Order Prescriptions: New midodrine 5 mg tablet 5 mg PO TID Qty: 60 0RF Rx Instructions: do not give last dose of day after 6PM or within 4 hrs of bedtime potassium chloride 20 mEq Tablet,Er Particles/Crystals 20 meq PO BID Qty: 60 1RF magnesium oxide 400 mg (241.3 mg magnesium) Tablet 400 mg PO BID Qty: 60 1RF metformin 500 mg Tablet Extended Release 24 Hr 500 mg PO BIDM Qty: 60 5RF oxycodone 5 mg Tablet 5 mg PO Q6H PRN (Reason: pain) Qty: 14 0RF cefadroxil 500 mg capsule 500 mg PO BID Qty: 6 0RF Rx Instructions: first dose evening of 07/05/2025. (DME) blood-glucose meter [[employer] Verio Flex meter] [facility] See Rx Instructions .Route Qty: 1 0RF Rx Instructions: As directed (DME) [employer] Verio test strips Strip See Rx Instructions .Route Qty: 100 1RF Rx Instructions: Check your blood sugars twice daily. (DME) lancing device with lancets [[employer] Delica Plus Lanc Dev] Kit See Rx Instructions .Route Qty: 1 0RF Rx Instructions: Check blood sugars twice daily. Continued allopurinol 100 mg Tablet 100 mg PO DAILY levothyroxine 50 mcg Tablet 50 mcg PO DAILY montelukast 10 mg tablet 10 mg PO HS escitalopram oxalate 10 mg tablet 10 mg PO QAM levocetirizine 5 mg tablet 10 mg PO DAILY bumetanide 2 mg Tablet 2 mg PO BID Qty: 0 0RF Rx Instructions: take in the morning and late afternoon. Changed dexamethasone 4 mg Tablet 4 mg PO DAILY Qty: 0 0RF Rx Instructions: Start Date 06/06/25 x 63 day supply Held lenalidomide 25 mg capsule See Rx Instructions .ROUTE .COMPLEX Hold Instructions: please contact your cancer doctor and ask when to resume Rx Instructions: 25mg PO daily for 21 days with 7 days rest Discontinued carvedilol [Coreg] 12.5 mg Tablet 12.5 mg PO BID Rx Instructions: must administer with a meal/food Discharge Orders: Discharge Order (Routine); Ordered 07/05/25 Ordered By: Lg Patrick/Other Patient Handouts: Nutrition for Wound Healing, Managing Type 2 Diabetes, 5 Steps for Eating Healthier, Managing Diabetes: The A1C Test, ED Cellulitis, ED Right-Sided Heart Failure Admission Data Admit Date/Time: 06/23/25 17:08 Attending Provider: Lg [place] Admit Provider: Lg Hansen Primary Care Provider: PCP,NO Other Providers: Lg Hansen; Kayla Scott; Jessica Sabillon; Aneta Frankel; Meghan Oden; Markell Moncada; Saima Palacios; Jenn Bowman; Damon Daniels Other Interventions: Discharge Summary Assessment (RN) Last Done: 07/05/25 12:44 Hospital Stay Data Consultations 06/23/25 16:50 ED Decision to Admit Stat 06/23/25 18:34 HIM [Consult Health Information Management] Stat 06/23/25 18:42 Consult Director Of Video Analytics Routine 06/25/25 13:31 Consult Infectious Diseases Routine 06/28/25 11:32 Consult Podiatry Routine Diagnostic Imagining Performed 06/23/25 14:33 CT angio chest PE protocol Stat 06/23/25 14:36 US venous doppler LE RT Stat 06/23/25 17:15 CT leg [CT tib/fib RT wo/w con] Stat Pending Results Patient Have Any Pending Studies at Discharge: No Discharge Instructions Given to Patient (Per Discharging Provider) Mr Agarwal, [place] were hospitalized due to septic shock (dangerously low blood pressure due to infection) from a severe skin infection, also known as "cellulitis." You required ICU care and medicine to keep your blood pressure in a normal range. The shock ultimately resolved. Blood cultures grew out streptococcus ("strep"), one of the most common causes of skin infection. You received IV antibiotics during your entire stay for the blood infection and skin infection. The right leg cellulitis caused severe edema which precipitated blistering of the skin. Dr Damon Daniels from podiatry saw you and performed debridement several times of the unhealthy skin on the lester region of the right leg . Infectious diseases was involved to help with antibiotic selection for your severe infections. Edema was treated with IV diuretics. With all of the above you slowly improved during the hospital stay. In addition, we noted that your blood sugars were high. Hemoglobin a1c was checked and found to be high at 7.8% which means that you are a type 2 diabetic. You have been started on oral medicine to control your blood sugars. Echocardiogram of your heart showed that the left side of your heart is working normally, but the right side of your heart is weaker than it should be. This is called right-sided congestive heart failure (see handout). We suspect you have underlying sleep apnea which, if severe and untreated, can lead to right-sided congestive heart failure. Please ask your family doctor for a referral to cardiology in your town. We have placed your echocardiogram on a CD for you. The edema in your legs is likely being driven to some extent by the right-sided congestive heart failure. Finally, due to having diarrhea, we checked a stool test for c diff bacteria and it returned NEGATIVE. Your diarrhea is due to all the recent antibiotics. Recommendations - 1. antibiotics - cefadroxil 500mg twice daily x 3 days, first dose TONIGHT. Most common side effect - diarrhea. 2. continue your dexamethasone steroid at 4mg daily for now. Please talk to your oncologist about the daily dexamethasone use. Ideally in the future you are taking a smaller dose of this steroid or not taking it at all unless you need it around the time of your chemotherapy treatments. Again talk to your oncologist about this. 3. check your blood sugars twice daily if possible. Keep a log of your sugars; show the log to your family doctor. Check the blood sugar every morning when you wake up, and then one other time during the day (before bed, before your evening meal, etc). 4. for diabetes take - metformin XR 500mg twice daily with meals. Most common side effects - stomach upset, nausea, loose stool in some cases. 5. potassium supplement - take 20meq twice daily. 6. magnesium supplement - take 400mg twice daily. 7. for right leg pain - oxycodone 5mg every 6 hours as needed. DO NOT DRIVE A CAR or DRINK ALCOHOL while taking this narcotic pain killer medicine. The pain medicine can make you drowsy, and it can also constipate you. In some cases it can make you a little confused or "out of it." Be cautious when taking it. 8. for dizziness - midodrine 5mg three times daily; next dose is about 5-6pm later today. Hopefully you will be able to stop this in the future; talk to your family doctor about it. 9. HOLD your lenalidomide for now; please contact your oncologist, tell them about your infection & hospital stay at [facility], and they will guide you as to when to resume this. 10. WOUND CARE INSTRUCTIONS - Change the dressings on your right leg DAILY and as needed. Next dressing change is tomorrow morning, 07/06/25. -remove the ANGELIC wrap and then all old dressings; discard the old dressings -place the yellow Xeroform gauze over all of the open areas on the skin; it is ok for the edges of each sheet of Xeroform to overlap -then cover the Xeroform with "ABD" dressings -then wrap the entire leg with "Kerlix" gauze dressing; secure the Kerlix with a small piece of medical tape -then wrap the leg with ANGELIC wrap as we have been doing here at the hospital -keep the dressings clean/dry during showers; no tub baths at this time -it is possible that the Wound Clinic in [place] may change the type of dressings 11. Elevate your right leg when sitting in a chair, on the couch, etc. This helps with edema/swelling. Follow-up - see separate section -in addition, keep any prior appointment with your oncologist Return to any hospital if - * you have fevers over 100 degrees * you have worsening redness, drainage, swelling, pain, odor, etc from the right leg * you have worsening shortness of breath * you have worsening diarrhea (3-4 or more loose stools in 24 hours) * any other concerns It was our pleasure to care for you at [facility]! -Lg [place], [facility] medicine Coding Diagnoses Septic shock A41.9; R65.21 Bacteremia R78.81 Cellulitis L03.90 Multiple myeloma C90.00 Transaminitis R74.01 JOSE (acute kidney injury) N17.9 Encephalopathy G93.40 Syncope R55 Hypokalemia E87.6 Witnessed episode of apnea R06.81 Acute respiratory failure with hypoxia J96.01 Hypothyroidism E03.9 Type 2 diabetes mellitus E11.9 Morbid obesity with BMI of 45.0-49.9, adult E66.01; Z68.42
[2025-07-05] MEDS: LOPERAMIDE HCL 2 MG CAP PO STA (13:53)
[2025-07-05] MEDS ORDERED: POTASSIUM CHLORIDE CRTAB 20 MEQ TABCR PO SCH (21:00)
== END 2025-07-05 16:20 | disposition home health service (06) | DRG 853 ==
LOC: SUATTDRO → ED 14:19 → SUATTDRO 17:08 → 1E 17:08 → 3E 06-25 11:01
DX: F17.210 Nicotine dependence, cigarettes, uncomplicated; E03.9 Hypothyroidism, unspecified; N17.0 Acute kidney failure with tubular necrosis; E87.8 Other disorders of electrolyte and fluid balance, not elsewhere classified; E87.1 Hypo-osmolality and hyponatremia; Z79.52 Long term (current) use of systemic steroids; I95.1 Orthostatic hypotension; L97.919 Non-pressure chronic ulcer of unspecified part of right lower leg with unspecified severity; I11.0 Hypertensive heart disease with heart failure; Z68.42 Body mass index [BMI] 45.0-49.9, adult; W22.8XXA Striking against or struck by other objects, initial encounter; T50.1X5A Adverse effect of loop [high-ceiling] diuretics, initial encounter; I87.2 Venous insufficiency (chronic) (peripheral); S80.821A Blister (nonthermal), right lower leg, initial encounter; G93.40 Encephalopathy, unspecified; G47.33 Obstructive sleep apnea (adult) (pediatric); Z88.1 Allergy status to other antibiotic agents; C90.00 Multiple myeloma not having achieved remission; E11.9 Type 2 diabetes mellitus without complications; I50.812 Chronic right heart failure; A40.8 Other streptococcal sepsis; J96.01 Acute respiratory failure with hypoxia; A46 Erysipelas; E87.6 Hypokalemia; E83.42 Hypomagnesemia; R74.01 Elevation of levels of liver transaminase levels; Z79.890 Hormone replacement therapy; Z79.899 Other long term (current) drug therapy; R65.21 Severe sepsis with septic shock; E66.01 Morbid (severe) obesity due to excess calories; D84.9 Immunodeficiency, unspecified; L03.115 Cellulitis of right lower limb